=== PATIENT | male | born 1975 | race Caucasian/White ===

== ENCOUNTER 2023-09-04 01:53 | Emergency (ER) | payer MEDICAID ==
[~2023-09-04] VITALS: Ht 185.4 cm; Wt 100.0 kg
[2023-09-04 02:36] VITALS: BP 135/78; PULSE 82; RESP 16; TEMP 98.3; O2SAT 98
== END 2023-09-04 02:38 | disposition home or self-care (01) ==
LOC: ER 01:53
DX: S01.81XA Laceration without foreign body of other part of head, initial encounter (principal); G89.29 Other chronic pain; M54.9 Dorsalgia, unspecified; X58.XXXA Exposure to other specified factors, initial encounter; Y93.89 Activity, other specified; Y92.89 Other specified places as the place of occurrence of the external cause; Y99.8 Other external cause status
CPT/HCPCS: 12011; 99283

== ENCOUNTER 2024-01-13 11:48 | Inpatient (IN) | payer MEDICAID ==
[2024-01-12 15:56] LABS: ABG BASE EXCESS 0.6 mmol/L (-2.0-2.0); ABG HCO3 24.3 mmol/L (22.0-26.0); ABG OXYGEN SATURATION 95.7 % (94-97); ABG PCO2 (T) 36.4 mmHg (35.0-48.0); ABG PH (T) 7.443 (7.340-7.440); ABG PO2 (T) 81.9 mmHg (75.0-100.0); ALLEN'S TEST POSITIVE; FCOHb 5.7 % (0.0-3.9); FMetHb 0.2 % (0.0-1.5); FO2Hb 90.1 % (94-97); MODE ROOM AIR; TOTAL HEMOGLOBIN 15.3 G/dl (14.0-17.9)
[2024-01-12 16:34] LABS: EOSINOPHILS # (AUTO) 0.1 X10'3 (0-0.9); EOSINOPHILS % (AUTO) 1.4 % (0-6); PRE OP WHITE BLOOD COUNT 8.8 10'3 (4.8-10.8)
[2024-01-12 16:35] LABS: BASOPHILS # (AUTO) 0.1 X10'3 (0-0.2); BASOPHILS % (AUTO) 0.6 % (0-1); LYMPHOCYTES # (AUTO) 2.6 X10'3 (1.1-4.8); LYMPHOCYTES % (AUTO) 29.5 % (21-51); MEAN CORPUSCULAR HEMOGLOBIN 34.5 PG (27.0-31.0); MEAN CORPUSCULAR HGB CONC 34.4 g/dL (33.0-36.5); MEAN CORPUSCULAR VOLUME 100.4 FL (78-98); MEAN PLATELET VOLUME 9.9 FL (7.4-10.4); MONOCYTES # (AUTO) 0.5 X10'3 (0-0.9); MONOCYTES % (AUTO) 5.5 % (2-12); NEUTROPHILS # (AUTO) 5.6 X10'3 (1.8-7.7); PRE OP HEMATOCRIT 43.6 % (42.0-52.0); PRE OP PLATELET COUNT 214 X10'3 (140-440); RED BLOOD COUNT 4.34 X10'6 (4.70-6.10); RED CELL DISTRIBUTION WIDTH 13.6 % (11.5-14.5)
[2024-01-12 16:48] LABS: ALBUMIN 3.5 G/DL (3.4-5.0); BLOOD UREA NITROGEN 11 MG/DL (7-18); BUN/CREATININE RATIO 12.9 (10.0-20.0); CALCIUM 8.8 MG/DL (8.5-10.1); CHLORIDE 106 MMOL/L (99-107); CREATININE 0.85 MG/DL (0.60-1.10); PRE OP ALT 48 U/L (30-65); PRE OP ANION GAP 9 (8-16); PRE OP AST 18 U/L (10-37); PRE OP BILIRUB, TOTAL 0.4 MG/DL (0.0-1.0); PRE OP GLUCOSE 103 MG/DL (70-104); PRE OP POTASSIUM 3.9 MMOL/L (3.4-5.1); PRE OP SODIUM 144 MMOL/L (135-145); TOTAL CARBON DIOXIDE 28.6 MMOL/L (24-32); eGFR > 90 ML/MIN
[2024-01-12 16:49] LABS: ALKALINE PHOSPHATASE 87 IU/L (46-116)
[~2024-01-13] VITALS: Ht 185.4 cm; Wt 96.3 kg
[2024-01-13] VITALS (25 sets, daily range): BP systolic 99–146; BP diastolic 56–94; PULSE 68–85; RESP 12–23; TEMP 97.5; O2SAT 94–100
[2024-01-13] MEDS: cefazolin 2gm/D5W 100mL 100 ML IV ONE (05:30)
[~2024-01-13 11:48] MED LIST: ASPI81TA52 PO; CARB200C7 PO; CETI10TA14 PO; CHOL20003 PO; DIPH25CA83 PO; DISU250T15 PO; DULO30CA52 PO; IBUP-1986 PO; METO-384 PO; POTA-366 PO; PRAZ1CAP5 PO; THIA100T70 PO
[2024-01-13] MEDS: famotidine 20mg tablet PO ONE (14:14)
[2024-01-13] MEDS: ringers solution, lacted 1,000 ML IV SCH (14:15)
[2024-01-13] MEDS: metoprolol tartrate 12.5mg (1/2 tablet) PO ONE (14:15)
[2024-01-13] MEDS: DOCUMENT DATE & TIME OF BETA-BLOCKER PO ONE (14:15)
[2024-01-13 14:31] LABS: PRE OP PARTIAL THROMB. TIME 23 SECONDS (22-32); PROTHROMBIN TIME 10.8 SECONDS (9.0-12.0)
[2024-01-13] MEDS ORDERED: sevoflurane 250ml liquid IH ONE (15:15)
[2024-01-13] MEDS ORDERED: MIDAZolam 1 MG/ML 5ML VIAL ONE (15:20)
[2024-01-13] MEDS ORDERED: fentaNYL /PF 50mcg/ml 5ml ampule ONE (15:20)
[2024-01-13] MEDS ORDERED: rocuronium 10mg/ml inj IV ONE ×2 (15:21→16:23)
[2024-01-13] MEDS ORDERED: ondansetron/PF 4mg/2ml inj ONE (15:21)
[2024-01-13] MEDS ORDERED: propofol inj 20 ML IV ONE (15:21)
[2024-01-13] MEDS ORDERED: dexamethasone sod phosphate 4mg/ml inj. ONE (15:21)
[2024-01-13] MEDS ORDERED: acetaminophen 1,000mg/100ml IV 100 ML IV ONE (15:58)
[2024-01-13] MEDS ORDERED: labetalol 20mg/4ml (5mg/ml) syringe IV ONE (16:15)
[2024-01-13] MEDS ORDERED: fentaNYL/PF 50MCG/1 ML 2ML syringe ONE (16:23)
[2024-01-13] MEDS ORDERED: sugammadex 200mg/2ml injection IV ONE (16:24)
[2024-01-13] MEDS ORDERED: fentaNYL/PF 50MCG/1 ML 2ML syringe IV PRN ×2 (16:35)
[2024-01-13] MEDS ORDERED: morphine 2 MG/ML inj. syringe IV PRN ×2 (16:35→17:00)
[2024-01-13] MEDS ORDERED: hydrALAZINE 20mg/ml inj. IV PRN (16:35)
[2024-01-13] MEDS ORDERED: labetalol 20mg/4ml (5mg/ml) syringe IV PRN (16:35)
[2024-01-13] MEDS ORDERED: ondansetron/PF 4mg/2ml inj IV PRN ×2 (16:35→17:00)
[2024-01-13] MEDS: BUPIVAcaine/PF 2.5mg/ml (0.25%) 10ml vial ONE (16:50)
[2024-01-13] MEDS: LIDOcaine 1% 30ml preserv. free vial ONE (16:50)
[2024-01-13] MEDS ORDERED: potassium Cl 40MEQ/1/2NS 520ml 520 ML IV PRN (17:00)
[2024-01-13] MEDS ORDERED: magnesium 4gm in 100ml NS 100 ML IV PRN (17:00)
[2024-01-13] MEDS ORDERED: potassium CL 10mEq/100ml bag 100 ML IV PRN (17:00)
[2024-01-13] MEDS ORDERED: potassium Cl 20mEq/100mL bag 100 ML IV PRN (17:00)
[2024-01-13] MEDS ORDERED: magnesium 2GM in 50ml NS 50 ML IV PRN (17:00)
[2024-01-13] MEDS ORDERED: ibuprofen tablet 400 MG TABLET PO PRN (17:00)
[2024-01-13] MEDS ORDERED: metoclopramide 5 mg/ml inj IV PRN (17:00)
[2024-01-13] MEDS ORDERED: potassium Cl 40MEQ/270ML bag 250 ML IV PRN (17:00)
[2024-01-13] MEDS ORDERED: morphine 4 MG/ML inj SYRINge IV PRN (17:00)
[2024-01-13] MEDS ORDERED: albuterol 2.5 MG/3 ML nebule NEB PRN (17:00)
[2024-01-13 17:36] LABS: ABG BASE EXCESS -4.1 mmol/L (-2.0-2.0); ABG HCO3 20.6 mmol/L (22.0-26.0); ABG OXYGEN SATURATION 98.3 % (94-97); ABG PCO2 (T) 36.6 mmHg (35.0-48.0); ABG PH (T) 7.368 (7.340-7.440); ABG PO2 (T) 117.5 mmHg (75.0-100.0); FCOHb 1.6 % (0.0-3.9); FHHb 1.7 % (0.0-5.0); FLOW 10 L/min; FMetHb 0.1 % (0.0-1.5); FO2Hb 96.6 % (94-97); MODE MASK - SIMPLE; TOTAL HEMOGLOBIN 14.2 G/dl (14.0-17.9)
[2024-01-13] MEDS: morphine 4 MG/ML inj SYRINge IV PRN (17:43)
[2024-01-13] MEDS: gabapentin 300mg capsule PO SCH (21:16)
[2024-01-13] MEDS: docusate sod 100mg capsule PO SCH (21:16)
[2024-01-13] MEDS: ketorolac trometh. 30mg/ml inj. IV ONE (21:17)
[2024-01-13] MEDS: cetirizine 10mg tablet PO SCH (21:18)
[2024-01-13] MEDS: diphenhydrAMINE 25mg capsule PO SCH (21:18)
[2024-01-13] MEDS: prazosin 1mg capsule PO SCH (21:19)
[2024-01-13] MEDS: duloxetine 30mg CAPSULE.DR PO SCH (21:29)
[2024-01-13] MEDS: carBAMazepine Ext. Release 200 MG TAB.ER.12H PO SCH (22:13)
[2024-01-14] VITALS (14 sets, daily range): BP systolic 105–156; BP diastolic 60–94; PULSE 66–90; RESP 11–22; TEMP 98.4; O2SAT 95–97
[2024-01-14] MEDS: ringers solution, lacted 1,000 ML IV SCH (00:33)
[2024-01-14] MEDS ORDERED: ketorolac trometh. 30mg/ml inj. IM SCH (02:00)
[2024-01-14] MEDS: ceFAZolin inj. 1,000 MG in dextrose 5%-water 50ml 50 ML IV SCH (02:00)
[2024-01-14] MEDS: ketorolac trometh. 30mg/ml inj. IV SCH (02:01)
[2024-01-14] MEDS: HYDROcodone/acetaminophen 10/325mg tab PO PRN ×2 (04:34→09:42)
[2024-01-14 04:42] LABS: BASOPHILS % (AUTO) 0.1 % (0-1); EOSINOPHILS % (AUTO) 0 % (0-6); HEMATOCRIT 36.4 % (42.0-52.0); HEMOGLOBIN 12.5 g/dl (14.0-17.9); LYMPHOCYTES # (AUTO) 1.4 X10'3 (1.1-4.8); LYMPHOCYTES % (AUTO) 12.1 % (21-51); MEAN CORPUSCULAR HEMOGLOBIN 34.6 PG (27.0-31.0); MEAN CORPUSCULAR HGB CONC 34.4 g/dL (33.0-36.5); MEAN CORPUSCULAR VOLUME 100.6 FL (78-98); MEAN PLATELET VOLUME 9.8 FL (7.4-10.4); MONOCYTES # (AUTO) 0.9 X10'3 (0-0.9); MONOCYTES % (AUTO) 7.7 % (2-12); NEUTROPHILS # (AUTO) 9.1 X10'3 (1.8-7.7); NEUTROPHILS % (AUTO) 80.1 % (42-75); PLATELET COUNT 168 X10'3 (140-440); RED BLOOD COUNT 3.62 X10'6 (4.70-6.10); RED CELL DISTRIBUTION WIDTH 13.3 % (11.5-14.5); WHITE BLOOD COUNT 11.4 X10'3 (4.5-11.0)
[2024-01-14 04:51] LABS: ALANINE AMINOTRANSFERASE 122 U/L (12-78); ALKALINE PHOSPHATASE 98 IU/L (46-116); ANION GAP 10 (8-16); ASPARTATE AMINO TRANSFERASE 114 U/L (10-37); BILIRUBIN,TOTAL 0.4 MG/DL (0.1-1.0); BLOOD UREA NITROGEN 16 MG/DL (7-18); BUN/CREATININE RATIO 17.4 (10.0-20.0); CALCIUM 8.1 MG/DL (8.5-10.1); CHLORIDE 106 MMOL/L (99-107); CREATININE 0.92 MG/DL (0.60-1.10); GLUCOSE 119 MG/DL (70-104); POTASSIUM 3.5 MMOL/L (3.5-5.1); SODIUM 142 MMOL/L (135-145); TOTAL PROTEIN 5.9 G/DL (6.4-8.2); eCRCL 112 ML/MIN; eGFR 88 ML/MIN
[2024-01-14] MEDS: thiamine 100mg tablet PO SCH (08:20)
[2024-01-14] MEDS: metoprolol succinate 25mg (24-HOUR) SR. Tablet PO SCH (08:20)
[2024-01-14] MEDS: aspirin 81mg, enteric-coated 1 TAB TABLET.DR PO SCH (08:21)
[2024-01-14] MEDS: cholecalciferol (vitamin D3) 1,000 unit (25mcg) tablet PO SCH (08:21)
[2024-01-14] MEDS: potassium Cl 20 mEq SR tablet PO PRN (09:41)
[2024-01-14] MEDS ORDERED: HYDR-3972 PO (12:04)
== END 2024-01-14 14:31 | disposition home or self-care (01) | DRG 121 ==
LOC: PAS IN 11:48 → CICU 2S 19:30 → PCU 3S 01-14 12:00
PROVIDERS: ADMIT Thoracic Surgery (Cardiothoracic Vascular Surgery); ATTEND Thoracic Surgery (Cardiothoracic Vascular Surgery)
PROC: 07B74ZX Excision of Thorax Lymphatic, Percutaneous Endoscopic Approach, Diagnostic (ICD-10-PCS; 2024-01-13)
PROC: 0BBF4ZZ Excision of Right Lower Lung Lobe, Percutaneous Endoscopic Approach (ICD-10-PCS; principal; 2024-01-13 15:15)
DX: R91.1 Solitary pulmonary nodule (principal); R59.9 Enlarged lymph nodes, unspecified; R91.8 Other nonspecific abnormal finding of lung field; Z72.0 Tobacco use
CPT/HCPCS: 36415; 36600; 71045; 71046; 71250; 80048; 80053; 82803; 82948; 85018; 85025; 85610; 85730; 86885; 86900; 86901; 87081; 94010; 94760; A4215; A4615; A4618; A6250; A6258; A6449; A7000; A7048; C1758; G0378; J0131; J0360; J0690; J1100; J1885; J2250; J2270; J2405; J2704; J3010; J3490; J7060; J7120; Q0163

== ENCOUNTER → 2024-01-20 | Outpatient (CLI) | payer MEDICAID ==
[~2024-01-20] MED LIST changes: +HYDR-3972 PO
== END | disposition home or self-care (01) ==
LOC: RAD 15:54
PROVIDERS: ATTEND Thoracic Surgery (Cardiothoracic Vascular Surgery)
DX: R91.8 Other nonspecific abnormal finding of lung field (principal); R07.89 Other chest pain
CPT/HCPCS: 71046

== ENCOUNTER 2024-02-03 09:27 | Outpatient (CLI) | payer MEDICAID | END 2024-02-03 23:59 | disposition home or self-care (01) | LOC: RAD 09:27 | PROVIDERS: ATTEND Nurse Practitioner Family | DX: R56.9 Unspecified convulsions (principal); Z72.820 Sleep deprivation | CPT/HCPCS: 95816 ==

== ENCOUNTER 2024-07-30 13:20 | Inpatient (IN) | payer MEDICAID ==
[~2024-07-30] VITALS: Ht 185.4 cm; Wt 97.3 kg
[2024-07-30] VITALS (14 sets, daily range): BP systolic 97–119; BP diastolic 63–80; PULSE 75–97; RESP 12–16; TEMP 98.5; O2SAT 93–98
[2024-07-30] MEDS: morphine 4 MG/ML inj SYRINge IV ONE ×3 (14:09→16:20)
[2024-07-30] MEDS: ondansetron/PF 4mg/2ml inj IV ONE (14:10)
[2024-07-30] MEDS: normal saline 1000ml 1,000 ML IV ONE ×3 (14:10→15:58)
[2024-07-30 14:37] LABS: BASOPHILS % (AUTO) 0.3 % (0-1); EOSINOPHILS % (AUTO) 0.4 % (0-6); HEMATOCRIT 54.6 % (42.0-52.0); LYMPHOCYTES % (AUTO) 9.3 % (21-51); MEAN CORPUSCULAR HGB CONC 33.9 g/dL (33.0-36.5); MEAN CORPUSCULAR VOLUME 109.1 FL (78-98); MONOCYTES # (AUTO) 0.5 X10'3 (0-0.9); MONOCYTES % (AUTO) 4.2 % (2-12); NEUTROPHILS # (AUTO) 9.6 X10'3 (1.8-7.7); NEUTROPHILS % (AUTO) 85.8 % (42-75); PLATELET COUNT 148 X10'3 (140-440); RED BLOOD COUNT 5.01 X10'6 (4.70-6.10); RED CELL DISTRIBUTION WIDTH 14.5 % (11.5-14.5); WHITE BLOOD COUNT 11.2 X10'3 (4.5-11.0)
[2024-07-30 14:43] LABS: ALBUMIN 3.1 G/DL (3.4-5.0); ANION GAP 16 (8-16); BLOOD UREA NITROGEN 29 MG/DL (7-18); BUN/CREATININE RATIO 18.4 (10.0-20.0); CALCIUM 8.3 MG/DL (8.5-10.1); CHLORIDE 94 MMOL/L (99-107); CREATININE 1.58 MG/DL (0.60-1.10); ETHANOL < 10 MG/DL (<10); GLUCOSE 104 MG/DL (70-104); MAGNESIUM 1.3 MG/DL (1.5-2.4); SODIUM 128 MMOL/L (135-145); TOTAL CARBON DIOXIDE 18.3 MMOL/L (24-32); eCRCL 65 ML/MIN; eGFR 47 ML/MIN
[2024-07-30 14:44] LABS: HEMOGLOBIN 18.5 g/dl (14.0-17.9)
[2024-07-30 14:45] LABS: POTASSIUM 4.7 MMOL/L (3.5-5.1)
[2024-07-30] MEDS ORDERED: iohexol 300mg/ml 100ml inj. ONE (14:53)
[2024-07-30] MEDS: piperacillin/tazo 4.5gm/100ml 100 ML IV ONE (15:10)
[2024-07-30 15:16] LABS: ALANINE AMINOTRANSFERASE 255 U/L (12-78); ALBUMIN 2.6 G/DL (3.4-5.0); ALKALINE PHOSPHATASE 246 IU/L (46-116); BILIRUBIN,TOTAL 4.9 MG/DL (0.1-1.0)
[2024-07-30 15:17] LABS: ALBUMIN/GLOBULIN RATIO 0.9 (1.1-1.5); ASPARTATE AMINO TRANSFERASE 319 U/L (10-37); BILIRUBIN,DIRECT 3.8 MG/DL (0-0.3); TOTAL PROTEIN 5.5 G/DL (6.4-8.2)
[2024-07-30] MEDS ORDERED: magnesium hydroxide 30ml (MOM) UD suspension PO PRN (16:50)
[2024-07-30] MEDS ORDERED: potassium Cl 20 mEq SR tablet PO PRN ×2 (16:50)
[2024-07-30] MEDS ORDERED: albuterol 2.5 MG/3 ML nebule NEB PRN (16:50)
[2024-07-30] MEDS ORDERED: mag hydrox/Alum hydrox/simeth 30ml oral suspension PO PRN (16:50)
[2024-07-30] MEDS ORDERED: acetaminophen 325mg tablet PO PRN (16:50)
[2024-07-30] MEDS ORDERED: potassium Cl 40MEQ/1/2NS 520ml 520 ML IV PRN (16:50)
[2024-07-30] MEDS ORDERED: pantoprazole 40mg IV 80 MG in normal saline 100ml IV soln 100 ML IV ONE (17:05)
[2024-07-30] MEDS: pantoprazole 40 MG vial IV ONE (17:10)
[2024-07-30] MEDS ORDERED: fentaNYL /PF 50mcg/ml 5ml ampule ONE (17:12)
[2024-07-30] MEDS ORDERED: midazolam 1 mg/ML 2ml injection ONE (17:12)
[2024-07-30] MEDS ORDERED: propofol inj 20 ML IV ONE (17:12)
[2024-07-30] MEDS ORDERED: meperidine/PF 25mg/ml syringe IV PRN ×3 (17:30)
[2024-07-30] MEDS ORDERED: morphine 2 MG/ML inj. syringe IV PRN (17:30)
[2024-07-30] MEDS ORDERED: ondansetron/PF 4mg/2ml inj IV PRN (17:30)
[2024-07-30] MEDS ORDERED: ringers solution, lacted 1,000 ML IV SCH (17:30)
[2024-07-30] MEDS ORDERED: morphine 4 MG/ML inj SYRINge IV PRN (17:30)
[2024-07-30] MEDS ORDERED: proCHLORperazine 10 MG/2 ml inj IV PRN (17:30)
[2024-07-30] MEDS ORDERED: sevoflurane 250ml liquid IH ONE (17:36)
[2024-07-30] MEDS ORDERED: ceFOXitin 1000 MG inj ONE ×2 (18:08)
[2024-07-30] MEDS ORDERED: rocuronium 10mg/ml inj IV ONE (18:08)
[2024-07-30] MEDS ORDERED: albumin (Human) 5% 250ml 250 ML IV ONE ×2 (18:13)
[2024-07-30] MEDS: BUPIVACAINE liposomal/PF 13.3 MG/ML vial IM ONE (19:00)
[2024-07-30] MEDS: BUPIVAcaine 2.5mg/ml inj 50ml vial (contains preservative) ONE (19:00)
[2024-07-30] MEDS ORDERED: acetaminophen 1,000mg/100ml IV 100 ML IV ONE (19:15)
[2024-07-30] MEDS ORDERED: sugammadex 200mg/2ml injection IV ONE (19:38)
[2024-07-30] MEDS ORDERED: pantoprazole 40MG/NS 100ML BAG 100 ML IV SCH (20:00)
[2024-07-30] MEDS: docusate sod 100mg capsule PO SCH (20:00)
[2024-07-30] MEDS: K and/or MAG REPLACEMENT MC SCH (20:00)
[2024-07-30] MEDS ORDERED: LYR25C PO (21:23)
[2024-07-30] MEDS ORDERED: ARIP5TAB53 PO (21:25)
[2024-07-30] MEDS ORDERED: DULO60CA65 PO (21:28)
[2024-07-30] MEDS ORDERED: ALBU8HFA INH (21:32)
[2024-07-30] MEDS ORDERED: PRAZ2CAP2 PO (21:32)
[2024-07-31] VITALS (18 sets, daily range): BP systolic 96–134; BP diastolic 68–89; PULSE 95–120; RESP 16–24; TEMP 97–101.1; O2SAT 91–95
[2024-07-31] MEDS: enoxaparin 40mg/0.4ml syringe SQ SCH (00:34)
[2024-07-31] MEDS: normal saline 1000ml 1,000 ML IV SCH (00:35)
[2024-07-31] MEDS: pantoprazole 40 MG vial IV SCH (00:35)
[2024-07-31] MEDS: piperacillin/tazo 4.5gm/100ml 100 ML IV SCH (00:35)
[2024-07-31] MEDS: HYDROmorphone inj. 0.5 MG/0.5 ML DISP.SYRIN IV PRN (05:33)
[2024-07-31 06:27] LABS: BASOPHILS % (AUTO) 0.3 % (0-1); EOSINOPHILS # (AUTO) 0.1 X10'3 (0-0.9); EOSINOPHILS % (AUTO) 2.4 % (0-6); HEMATOCRIT 45.4 % (42.0-52.0); HEMOGLOBIN 14.8 g/dl (14.0-17.9); LYMPHOCYTES # (AUTO) 0.4 X10'3 (1.1-4.8); LYMPHOCYTES % (AUTO) 7.4 % (21-51); MEAN CORPUSCULAR HEMOGLOBIN 36.7 PG (27.0-31.0); MEAN CORPUSCULAR HGB CONC 32.5 g/dL (33.0-36.5); MEAN PLATELET VOLUME 10.6 FL (7.4-10.4); MONOCYTES # (AUTO) 0.2 X10'3 (0-0.9); MONOCYTES % (AUTO) 3.7 % (2-12); NEUTROPHILS # (AUTO) 4.8 X10'3 (1.8-7.7); NEUTROPHILS % (AUTO) 86.2 % (42-75); PLATELET COUNT 97 X10'3 (140-440); RED BLOOD COUNT 4.02 X10'6 (4.70-6.10); RED CELL DISTRIBUTION WIDTH 14.7 % (11.5-14.5); WHITE BLOOD COUNT 5.5 X10'3 (4.5-11.0)
[2024-07-31 07:31] LABS: ALANINE AMINOTRANSFERASE 207 U/L (12-78); ALBUMIN 2.3 G/DL (3.4-5.0); ALKALINE PHOSPHATASE 145 IU/L (46-116); ANION GAP 9 (8-16); BILIRUBIN,TOTAL 4.2 MG/DL (0.1-1.0); BLOOD UREA NITROGEN 22 MG/DL (7-18); BUN/CREATININE RATIO 16.8 (10.0-20.0); CALCIUM 6.6 MG/DL (8.5-10.1); CHLORIDE 102 MMOL/L (99-107); CREATININE 1.31 MG/DL (0.60-1.10); GLUCOSE 101 MG/DL (70-104); SODIUM 133 MMOL/L (135-145); TOTAL CARBON DIOXIDE 22.4 MMOL/L (24-32); eCRCL 79 ML/MIN; eGFR 59 ML/MIN
[2024-07-31 07:33] LABS: ALBUMIN/GLOBULIN RATIO 0.8 (1.1-1.5); ASPARTATE AMINO TRANSFERASE 324 U/L (10-37); POTASSIUM 4.9 MMOL/L (3.5-5.1); TOTAL PROTEIN 5.2 G/DL (6.4-8.2)
[2024-07-31 09:15] LABS: PLATELET ESTIMATE DECREASED; TOTAL CELLS COUNTED 100
[2024-07-31 09:19] LABS: ELLIPTOCYTES 1+; POIKILOCYTOSIS 2+; STOMATOCYTES 1+
[2024-07-31 09:20] LABS: TARGET CELLS 1+
[2024-07-31] MEDS: metoprolol succinate 25mg (24-HOUR) SR. Tablet PO ONE (12:16)
[2024-07-31] MEDS: ipratropium/albuterol 3ml nebule NEB PRN (12:16)
[2024-07-31] MEDS: magnesium sulf-water 4G/100mL 100 ML IV PRN (12:40)
[2024-07-31] MEDS ORDERED: methylPREDNISolone sod succ 125mg/2ml vial IV ONE (14:00)
[2024-07-31 14:17] LABS: ABG BASE EXCESS -5.9 mmol/L (-2.0-3.0); ABG HCO3 18.1 mmol/L (21.0-28.0); ABG OXYGEN SATURATION 87.7 % (94.0-98.0); ABG PCO2 (T) 34.2 mmHg (35.0-48.0); ABG PH (T) 7.349 (7.350-7.450); ABG PO2 (T) 60.2 mmHg (83.0-108.0); ALLEN'S TEST POSITIVE; FCOHb 1.3 % (0.5-1.5); FHHb 12.1 % (0.0-5.0); FLOW 6 L/min; FMetHb 0.3 % (0.0-1.5); FO2Hb 86.3 % (94.0-98.0); MODE NASAL CANNULA; PATIENT TEMPERATURE 38.6; TOTAL HEMOGLOBIN 15.1 G/dl (13.5-17.5)
[2024-07-31] MEDS: methylPREDNISolone sod succ 125mg/2ml vial IV ONE (14:18)
[2024-07-31] MEDS: ipratropium/albuterol 3ml nebule NEB SCH (15:50)
[2024-07-31] MEDS: normal saline 1000ml 1,000 ML IV ONE (16:48)
[2024-07-31] MEDS: calcium chloride 100 MG/1 ML inj IV ONE (17:52)
[2024-07-31] MEDS: carBAMazepine Ext. Release 200 MG TAB.ER.12H PO SCH (21:15)
[2024-07-31] MEDS: cetirizine 10mg tablet PO SCH (21:16)
[2024-07-31] MEDS: diphenhydrAMINE 25mg capsule PO SCH (21:16)
[2024-07-31] MEDS: pregabalin 25mg capsule PO SCH (21:16)
[2024-07-31] MEDS: prazosin 1mg capsule PO SCH (21:16)
[2024-07-31] MEDS: duloxetine 30mg CAPSULE.DR PO SCH (21:16)
[2024-07-31] MEDS: magnesium sulf-water 2g/50mL 50 ML IV PRN (21:28)
[2024-08-01] VITALS (45 sets, daily range): BP systolic 110–141; BP diastolic 70–96; PULSE 65–95; RESP 12–20; TEMP 96.1–97.8; O2SAT 77–100
[2024-08-01] MEDS: methylPREDNISolone sod succ 125mg/2ml vial IV SCH (00:39)
[2024-08-01 06:49] LABS: BASOPHILS % (AUTO) 0.1 % (0-1); EOSINOPHILS % (AUTO) 0.1 % (0-6); HEMOGLOBIN 11.8 g/dl (14.0-17.9); LYMPHOCYTES # (AUTO) 0.7 X10'3 (1.1-4.8); MEAN CORPUSCULAR HEMOGLOBIN 36.1 PG (27.0-31.0); MEAN CORPUSCULAR HGB CONC 32.7 g/dL (33.0-36.5); MEAN CORPUSCULAR VOLUME 110.4 FL (78-98); MEAN PLATELET VOLUME 10.5 FL (7.4-10.4); MONOCYTES # (AUTO) 0.6 X10'3 (0-0.9); MONOCYTES % (AUTO) 4.3 % (2-12); NEUTROPHILS # (AUTO) 12.3 X10'3 (1.8-7.7); NEUTROPHILS % (AUTO) 90.5 % (42-75); PLATELET COUNT 90 X10'3 (140-440); RED BLOOD COUNT 3.26 X10'6 (4.70-6.10); RED CELL DISTRIBUTION WIDTH 14.7 % (11.5-14.5); WHITE BLOOD COUNT 13.6 X10'3 (4.5-11.0)
[2024-08-01] MEDS ORDERED: rocuronium 10mg/ml inj IV ONE ×2 (07:08)
[2024-08-01 07:21] LABS: ALANINE AMINOTRANSFERASE 169 U/L (12-78); ALBUMIN 1.8 G/DL (3.4-5.0); ALBUMIN/GLOBULIN RATIO 0.6 (1.1-1.5); ALKALINE PHOSPHATASE 107 IU/L (46-116); ANION GAP 6 (8-16); ASPARTATE AMINO TRANSFERASE 246 U/L (10-37); BILIRUBIN,TOTAL 2.4 MG/DL (0.1-1.0); BLOOD UREA NITROGEN 22 MG/DL (7-18); BUN/CREATININE RATIO 22.2 (10.0-20.0); CALCIUM 7.1 MG/DL (8.5-10.1); CHLORIDE 104 MMOL/L (99-107); CREATININE 0.99 MG/DL (0.60-1.10); GLUCOSE 157 MG/DL (70-104); MAGNESIUM 2.7 MG/DL (1.5-2.4); POTASSIUM 3.8 MMOL/L (3.5-5.1); SODIUM 134 MMOL/L (135-145); TOTAL CARBON DIOXIDE 23.6 MMOL/L (24-32); TOTAL PROTEIN 4.9 G/DL (6.4-8.2); eCRCL 104 ML/MIN; eGFR 81 ML/MIN
[2024-08-01] MEDS ORDERED: sevoflurane 250ml liquid IH ONE (07:30)
[2024-08-01] MEDS: thiamine 100mg tablet PO SCH (08:00)
[2024-08-01] MEDS: metoprolol succinate 25mg (24-HOUR) SR. Tablet PO SCH (08:00)
[2024-08-01] MEDS: aripiprazole 5mg tablet PO SCH (08:00)
[2024-08-01] MEDS ORDERED: sugammadex 200mg/2ml injection IV ONE ×2 (08:10→08:11)
[2024-08-01] MEDS ORDERED: HYDROmorphone 1 mg/ml syringe ONE (08:18)
[2024-08-01] MEDS ORDERED: acetaminophen 1,000mg/100ml IV 100 ML IV ONE (08:29)
[2024-08-01 08:55] LABS: PLATELET ESTIMATE DECREASED; TOTAL CELLS COUNTED 100
[2024-08-01 08:56] LABS: STOMATOCYTES 1+; TARGET CELLS FEW
[2024-08-01] MEDS ORDERED: ondansetron/PF 4mg/2ml inj IV PRN (10:25)
[2024-08-01] MEDS ORDERED: fentaNYL/PF 50MCG/1 ML 2ML syringe IV PRN (10:25)
[2024-08-01] MEDS ORDERED: HYDROmorphone/PF 0.2 MG/ML SYRINGE IV PRN (10:25)
[2024-08-01] MEDS: ringers solution, lacted 1,000 ML IV SCH (11:52)
[2024-08-02] VITALS (25 sets, daily range): BP systolic 132–157; BP diastolic 77–96; PULSE 71–117; RESP 12–22; TEMP 97.2–98.7; O2SAT 89–98
[2024-08-02 08:16] LABS: BASOPHILS % (AUTO) 0 % (0-1); EOSINOPHILS % (AUTO) 0.1 % (0-6); HEMATOCRIT 33.5 % (42.0-52.0); HEMOGLOBIN 10.9 g/dl (14.0-17.9); LYMPHOCYTES # (AUTO) 0.6 X10'3 (1.1-4.8); LYMPHOCYTES % (AUTO) 4.8 % (21-51); MEAN CORPUSCULAR HEMOGLOBIN 35.9 PG (27.0-31.0); MEAN CORPUSCULAR HGB CONC 32.6 g/dL (33.0-36.5); MEAN CORPUSCULAR VOLUME 110.2 FL (78-98); MONOCYTES % (AUTO) 7.9 % (2-12); NEUTROPHILS # (AUTO) 10.8 X10'3 (1.8-7.7); NEUTROPHILS % (AUTO) 87.2 % (42-75); PLATELET COUNT 78 X10'3 (140-440); RED BLOOD COUNT 3.04 X10'6 (4.70-6.10); RED CELL DISTRIBUTION WIDTH 14.3 % (11.5-14.5); WHITE BLOOD COUNT 12.4 X10'3 (4.5-11.0)
[2024-08-02 08:56] LABS: ALANINE AMINOTRANSFERASE 148 U/L (12-78); ALBUMIN 1.7 G/DL (3.4-5.0); ALBUMIN/GLOBULIN RATIO 0.5 (1.1-1.5); ALKALINE PHOSPHATASE 117 IU/L (46-116); ANION GAP 7 (8-16); ASPARTATE AMINO TRANSFERASE 164 U/L (10-37); BILIRUBIN,TOTAL 2.4 MG/DL (0.1-1.0); BLOOD UREA NITROGEN 19 MG/DL (7-18); CALCIUM 7.5 MG/DL (8.5-10.1); CHLORIDE 105 MMOL/L (99-107); CREATININE 0.73 MG/DL (0.60-1.10); GLUCOSE 110 MG/DL (70-104); MAGNESIUM 2.4 MG/DL (1.5-2.4); SODIUM 138 MMOL/L (135-145); TOTAL CARBON DIOXIDE 26.3 MMOL/L (24-32); TOTAL PROTEIN 5.1 G/DL (6.4-8.2); eCRCL 141 ML/MIN; eGFR > 90 ML/MIN
[2024-08-02 10:08] LABS: PLATELET ESTIMATE DECREASED; TOTAL CELLS COUNTED 100
[2024-08-02 10:09] LABS: STOMATOCYTES 3+; TARGET CELLS 1+
[2024-08-02] MEDS: furosemide 20 MG/2 ML vial IV ONE (22:01)
[2024-08-02] MEDS: methylPREDNISolone sod succ/PF 40mg inj. IV SCH (23:38)
[2024-08-03] VITALS (16 sets, daily range): BP systolic 123–140; BP diastolic 69–89; PULSE 66–124; RESP 16–22; TEMP 96.9–97.7; O2SAT 91–98
[2024-08-03 05:47] LABS: EOSINOPHILS % (AUTO) 0.4 % (0-6); HEMATOCRIT 36.1 % (42.0-52.0); HEMOGLOBIN 11.7 g/dl (14.0-17.9); LYMPHOCYTES # (AUTO) 0.6 X10'3 (1.1-4.8); MEAN CORPUSCULAR HGB CONC 32.3 g/dL (33.0-36.5); RED CELL DISTRIBUTION WIDTH 14.5 % (11.5-14.5); WHITE BLOOD COUNT 11.9 X10'3 (4.5-11.0)
[2024-08-03 05:49] LABS: BASOPHILS % (AUTO) 0.2 % (0-1); LYMPHOCYTES % (AUTO) 4.9 % (21-51); MEAN CORPUSCULAR VOLUME 111.6 FL (78-98); MEAN PLATELET VOLUME 10.3 FL (7.4-10.4); MONOCYTES # (AUTO) 0.8 X10'3 (0-0.9); MONOCYTES % (AUTO) 6.4 % (2-12); NEUTROPHILS # (AUTO) 10.5 X10'3 (1.8-7.7); NEUTROPHILS % (AUTO) 88.1 % (42-75); PLATELET COUNT 80 X10'3 (140-440); RED BLOOD COUNT 3.24 X10'6 (4.70-6.10)
[2024-08-03 06:19] LABS: ALANINE AMINOTRANSFERASE 136 U/L (12-78); ALBUMIN 1.8 G/DL (3.4-5.0); ALBUMIN/GLOBULIN RATIO 0.5 (1.1-1.5); ALKALINE PHOSPHATASE 217 IU/L (46-116); ANION GAP 7 (8-16); ASPARTATE AMINO TRANSFERASE 125 U/L (10-37); BILIRUBIN,TOTAL 2.8 MG/DL (0.1-1.0); BLOOD UREA NITROGEN 21 MG/DL (7-18); BUN/CREATININE RATIO 27.3 (10.0-20.0); CHLORIDE 103 MMOL/L (99-107); CREATININE 0.77 MG/DL (0.60-1.10); GLUCOSE 107 MG/DL (70-104); POTASSIUM 3.4 MMOL/L (3.5-5.1); PRO BRAIN NATRIURETIC PEPTIDE 829 PG/ML (0-125); SODIUM 139 MMOL/L (135-145); TOTAL CARBON DIOXIDE 29.3 MMOL/L (24-32); TOTAL PROTEIN 5.6 G/DL (6.4-8.2); eCRCL 134 ML/MIN; eGFR > 90 ML/MIN
[2024-08-03] MEDS: PERFLUTREN PROTEIN-A MICROSPHR (Optison) 0.22 MG/ML 3ML VIAL IV ONE (08:35)
[2024-08-03 09:51] LABS: NUCLEATED RED BLOOD CELLS 1 /100WBC (0-0); TOTAL CELLS COUNTED 100
[2024-08-03 09:52] LABS: PLATELET ESTIMATE DECREASED
[2024-08-03 09:53] LABS: POLYCHROMASIA FEW; STOMATOCYTES 3+; TARGET CELLS FEW
[2024-08-03] MEDS ORDERED: HYDROcodone/acetaminophen 5mg/325mg tablet PO PRN (12:45)
[2024-08-03] MEDS ORDERED: potassium Cl 40MEQ/1/2NS 520ml 520 ML IV PRN (12:45)
[2024-08-03] MEDS ORDERED: potassium Cl 20 mEq SR tablet PO PRN (12:45)
[2024-08-03] MEDS ORDERED: ziprasidone IM 20mg inj **IM only IM PRN (12:55)
[2024-08-03] MEDS: LORazepam 1 MG tablet PO PRN (13:08)
[2024-08-03] MEDS: HYDROcodone/acetaminophen 10/325mg tab PO PRN (13:09)
[2024-08-03] MEDS: potassium Cl 20 mEq SR tablet PO PRN (13:09)
[2024-08-03] MEDS: K and/or MAG REPLACEMENT MC SCH (20:00)
[2024-08-04] VITALS (24 sets, daily range): BP systolic 104–139; BP diastolic 70–84; PULSE 63–92; RESP 15–24; TEMP 97.6–98.7; O2SAT 85–96
[2024-08-04 08:01] LABS: BASOPHILS % (AUTO) 0.2 % (0-1); EOSINOPHILS # (AUTO) 0.1 X10'3 (0-0.9)
[2024-08-04 08:04] LABS: EOSINOPHILS % (AUTO) 0.5 % (0-6); HEMOGLOBIN 10.4 g/dl (14.0-17.9); LYMPHOCYTES # (AUTO) 1.1 X10'3 (1.1-4.8); LYMPHOCYTES % (AUTO) 7.7 % (21-51); MEAN CORPUSCULAR HEMOGLOBIN 36.3 PG (27.0-31.0); MEAN CORPUSCULAR HGB CONC 32.7 g/dL (33.0-36.5); MEAN PLATELET VOLUME 10.6 FL (7.4-10.4); MONOCYTES # (AUTO) 0.6 X10'3 (0-0.9); MONOCYTES % (AUTO) 4.4 % (2-12); NEUTROPHILS # (AUTO) 12.6 X10'3 (1.8-7.7); NEUTROPHILS % (AUTO) 87.2 % (42-75); PLATELET COUNT 98 X10'3 (140-440); RED BLOOD COUNT 2.88 X10'6 (4.70-6.10); RED CELL DISTRIBUTION WIDTH 14.5 % (11.5-14.5); WHITE BLOOD COUNT 14.4 X10'3 (4.5-11.0)
[2024-08-04 08:32] LABS: ALBUMIN 1.7 G/DL (3.4-5.0); ANION GAP 6 (8-16); BILIRUBIN,TOTAL 1.8 MG/DL (0.1-1.0); BLOOD UREA NITROGEN 20 MG/DL (7-18); BUN/CREATININE RATIO 27.4 (10.0-20.0); CALCIUM 7.8 MG/DL (8.5-10.1); CHLORIDE 100 MMOL/L (99-107); CREATININE 0.73 MG/DL (0.60-1.10); GLUCOSE 103 MG/DL (70-104); MAGNESIUM 1.8 MG/DL (1.5-2.4); POTASSIUM 3.3 MMOL/L (3.5-5.1); SODIUM 136 MMOL/L (135-145); TOTAL CARBON DIOXIDE 30.1 MMOL/L (24-32); TOTAL PROTEIN 5.3 G/DL (6.4-8.2); eCRCL 141 ML/MIN; eGFR > 90 ML/MIN
[2024-08-04 08:33] LABS: ALANINE AMINOTRANSFERASE 91 U/L (12-78); ALBUMIN/GLOBULIN RATIO 0.5 (1.1-1.5); ALKALINE PHOSPHATASE 284 IU/L (46-116); ASPARTATE AMINO TRANSFERASE 66 U/L (10-37)
[2024-08-04 09:26] LABS: PLATELET ESTIMATE DECREASED; TOTAL CELLS COUNTED 100
[2024-08-04 09:27] LABS: ELLIPTOCYTES FEW; STOMATOCYTES 3+; TARGET CELLS FEW
[2024-08-04] MEDS ORDERED: iohexol 300mg/ml 100ml inj. ONE (12:08)
[2024-08-04] MEDS: duloxetine 30mg CAPSULE.DR PO SCH (20:55)
[2024-08-04] MEDS: LORazepam 2 mg/ml vial IV PRN (23:45)
[2024-08-05] VITALS (19 sets, daily range): BP systolic 111–171; BP diastolic 68–76; PULSE 67–85; RESP 16–22; TEMP 96.8–98.2; O2SAT 92–98
[2024-08-05 10:11] LABS: EOSINOPHILS # (AUTO) 0.2 X10'3 (0-0.9); WHITE BLOOD COUNT 17.2 X10'3 (4.5-11.0)
[2024-08-05 10:13] LABS: BASOPHILS % (AUTO) 0.1 % (0-1); EOSINOPHILS % (AUTO) 0.9 % (0-6); HEMATOCRIT 34.1 % (42.0-52.0); HEMOGLOBIN 11.2 g/dl (14.0-17.9); LYMPHOCYTES # (AUTO) 2.1 X10'3 (1.1-4.8); LYMPHOCYTES % (AUTO) 12.4 % (21-51); MEAN CORPUSCULAR HEMOGLOBIN 36.6 PG (27.0-31.0); MEAN CORPUSCULAR HGB CONC 32.9 g/dL (33.0-36.5); MEAN CORPUSCULAR VOLUME 111.1 FL (78-98); MEAN PLATELET VOLUME 10.5 FL (7.4-10.4); MONOCYTES # (AUTO) 1.1 X10'3 (0-0.9); MONOCYTES % (AUTO) 6.1 % (2-12); NEUTROPHILS # (AUTO) 13.9 X10'3 (1.8-7.7); NEUTROPHILS % (AUTO) 80.5 % (42-75); PLATELET COUNT 133 X10'3 (140-440); RED BLOOD COUNT 3.07 X10'6 (4.70-6.10); RED CELL DISTRIBUTION WIDTH 14.4 % (11.5-14.5)
[2024-08-05 10:35] LABS: ALANINE AMINOTRANSFERASE 70 U/L (12-78); ALBUMIN 1.8 G/DL (3.4-5.0); ALBUMIN/GLOBULIN RATIO 0.5 (1.1-1.5); ALKALINE PHOSPHATASE 330 IU/L (46-116); ANION GAP 4 (8-16); ASPARTATE AMINO TRANSFERASE 46 U/L (10-37); BILIRUBIN,TOTAL 1.4 MG/DL (0.1-1.0); BLOOD UREA NITROGEN 15 MG/DL (7-18); BUN/CREATININE RATIO 19.2 (10.0-20.0); CALCIUM 8.1 MG/DL (8.5-10.1); CHLORIDE 97 MMOL/L (99-107); CREATININE 0.78 MG/DL (0.60-1.10); GLUCOSE 98 MG/DL (70-104); POTASSIUM 3.2 MMOL/L (3.5-5.1); SODIUM 134 MMOL/L (135-145); TOTAL CARBON DIOXIDE 33.2 MMOL/L (24-32); TOTAL PROTEIN 5.6 G/DL (6.4-8.2); eCRCL 132 ML/MIN; eGFR > 90 ML/MIN
[2024-08-05] MEDS: methylPREDNISolone sod succ/PF 40mg inj. IV SCH (12:50)
[2024-08-05 13:52] LABS: MAGNESIUM 1.5 MG/DL (1.5-2.4)
[2024-08-05] MEDS ORDERED: Dextrose 10%-water IV solution 1,000 ML IV PRN (16:05)
[2024-08-05 16:18] LABS: PHOSPHORUS 3.6 MG/DL (2.3-4.5); PREALBUMIN 12.1 MG/DL (19-36)
[2024-08-05] MEDS: HYDROmorphone/PF 0.2 MG/ML SYRINGE IV PRN (16:31)
[2024-08-05] MEDS: MVI, adult No.4 with vit. K 10 ML in dextrose 5% water 500ml 500 ML IV SCH (17:53)
[2024-08-05] MEDS: fat emulsion 20% inj. 100 ML IV SCH (17:54)
[2024-08-05] MEDS: MANGANESE IV SCH (18:01)
[2024-08-05] MEDS: COPPER IV SCH (18:01)
[2024-08-05] MEDS: SELENIUM IV SCH (18:01)
[2024-08-05] MEDS: CHROMIC CHLORIDE IV SCH (18:01)
[2024-08-05] MEDS: [UNRECOGNIZED DRUG - OTHER] IV SCH (18:01)
[2024-08-05] MEDS: ZINC IV SCH (18:01)
[2024-08-05] MEDS: LORazepam 2 mg/ml vial IV PRN (23:47)
[2024-08-06] VITALS (15 sets, daily range): BP systolic 120–145; BP diastolic 65–87; PULSE 64–82; RESP 16–22; TEMP 97.7–98.8; O2SAT 83–98
[2024-08-06 09:31] LABS: ALANINE AMINOTRANSFERASE 56 U/L (12-78); ALBUMIN 1.8 G/DL (3.4-5.0); ALBUMIN/GLOBULIN RATIO 0.5 (1.1-1.5); ALKALINE PHOSPHATASE 368 IU/L (46-116); ANION GAP 5 (8-16); ASPARTATE AMINO TRANSFERASE 33 U/L (10-37); BILIRUBIN,TOTAL 1.1 MG/DL (0.1-1.0); BLOOD UREA NITROGEN 7 MG/DL (7-18); BUN/CREATININE RATIO 9.7 (10.0-20.0); CALCIUM 8.3 MG/DL (8.5-10.1); CHLORIDE 98 MMOL/L (99-107); CREATININE 0.72 MG/DL (0.60-1.10); GLUCOSE 104 MG/DL (70-104); MAGNESIUM 1.6 MG/DL (1.5-2.4); PHOSPHORUS 3.7 MG/DL (2.3-4.5); POTASSIUM 3.7 MMOL/L (3.5-5.1); SODIUM 134 MMOL/L (135-145); TOTAL CARBON DIOXIDE 30.7 MMOL/L (24-32); TOTAL PROTEIN 5.7 G/DL (6.4-8.2); eCRCL 143 ML/MIN; eGFR > 90 ML/MIN
[2024-08-06 10:05] LABS: BASOPHILS % (AUTO) 0.3 % (0-1); EOSINOPHILS # (AUTO) 0.1 X10'3 (0-0.9); HEMATOCRIT 34.9 % (42.0-52.0); PLATELET COUNT 162 X10'3 (140-440)
[2024-08-06 10:06] LABS: EOSINOPHILS % (AUTO) 0.6 % (0-6); HEMOGLOBIN 11.2 g/dl (14.0-17.9); LYMPHOCYTES # (AUTO) 1.7 X10'3 (1.1-4.8); LYMPHOCYTES % (AUTO) 8.8 % (21-51); MEAN CORPUSCULAR HEMOGLOBIN 35.5 PG (27.0-31.0); MONOCYTES # (AUTO) 1.2 X10'3 (0-0.9); NEUTROPHILS # (AUTO) 16.1 X10'3 (1.8-7.7); NEUTROPHILS % (AUTO) 84.3 % (42-75); RED BLOOD COUNT 3.14 X10'6 (4.70-6.10); RED CELL DISTRIBUTION WIDTH 14.7 % (11.5-14.5); WHITE BLOOD COUNT 19.1 X10'3 (4.5-11.0)
[2024-08-06 13:09] LABS: NUCLEATED RED BLOOD CELLS 2 /100WBC (0-0); PLATELET ESTIMATE NORMAL; TOTAL CELLS COUNTED 100
[2024-08-06 13:15] LABS: POLYCHROMASIA FEW; STOMATOCYTES 3+
[2024-08-06] MEDS: diatr meglu/diatrizoate 30ml oral sol.-(3 dose) bottle PO SCH (20:34)
[2024-08-07] VITALS (17 sets, daily range): BP systolic 108–136; BP diastolic 65–89; PULSE 52–87; RESP 14–20; TEMP 97.6–98.1; O2SAT 86–97
[2024-08-07 06:51] LABS: ALANINE AMINOTRANSFERASE 50 U/L (12-78); ALBUMIN 1.8 G/DL (3.4-5.0); ALBUMIN/GLOBULIN RATIO 0.4 (1.1-1.5); ALKALINE PHOSPHATASE 373 IU/L (46-116); ANION GAP 8 (8-16); ASPARTATE AMINO TRANSFERASE 31 U/L (10-37); BILIRUBIN,TOTAL 1.1 MG/DL (0.1-1.0); BLOOD UREA NITROGEN 11 MG/DL (7-18); BUN/CREATININE RATIO 15.7 (10.0-20.0); CALCIUM 8.3 MG/DL (8.5-10.1); CHLORIDE 97 MMOL/L (99-107); GLUCOSE 114 MG/DL (70-104); MAGNESIUM 1.3 MG/DL (1.5-2.4); PREALBUMIN 14.4 MG/DL (19-36); SODIUM 133 MMOL/L (135-145); TOTAL CARBON DIOXIDE 28.3 MMOL/L (24-32); TRIGLYCERIDES 131 MG/DL (20-135); eCRCL 147 ML/MIN; eGFR > 90 ML/MIN
[2024-08-07] MEDS ORDERED: magnesium sulf-water 2g/50mL 50 ML IV PRN (07:25)
[2024-08-07] MEDS ORDERED: magnesium sulf-water 4G/100mL 100 ML IV PRN (07:25)
[2024-08-07] MEDS ORDERED: potassium Cl 20 mEq SR tablet PO PRN (07:25)
[2024-08-07] MEDS: K and/or MAG REPLACEMENT MC SCH (08:00)
[2024-08-07 09:05] LABS: BASOPHILS # (AUTO) 0.1 X10'3 (0-0.2); BASOPHILS % (AUTO) 0.4 % (0-1); EOSINOPHILS # (AUTO) 0.2 X10'3 (0-0.9); HEMATOCRIT 35.2 % (42.0-52.0); HEMOGLOBIN 11.1 g/dl (14.0-17.9); LYMPHOCYTES # (AUTO) 1.5 X10'3 (1.1-4.8); LYMPHOCYTES % (AUTO) 7.1 % (21-51); MEAN CORPUSCULAR HGB CONC 31.6 g/dL (33.0-36.5); MEAN CORPUSCULAR VOLUME 110.8 FL (78-98); MEAN PLATELET VOLUME 10.8 FL (7.4-10.4); MONOCYTES % (AUTO) 4.9 % (2-12); NEUTROPHILS # (AUTO) 18.4 X10'3 (1.8-7.7); NEUTROPHILS % (AUTO) 86.6 % (42-75); PLATELET COUNT 195 X10'3 (140-440); RED BLOOD COUNT 3.18 X10'6 (4.70-6.10); RED CELL DISTRIBUTION WIDTH 14.8 % (11.5-14.5); WHITE BLOOD COUNT 21.2 X10'3 (4.5-11.0)
[2024-08-07] MEDS: Dakins solution (1/4 strength) 473ml solution TP SCH (10:17)
[2024-08-07] MEDS ORDERED: normal saline 1000ml 1,000 ML IV SCH (10:40)
[2024-08-07] MEDS: normal saline 500ml IV soln 500 ML IV SCH (11:27)
[2024-08-07] MEDS: potassium Cl 40MEQ/1/2NS 520ml 520 ML IV PRN (11:27)
[2024-08-07] MEDS: HYDROmorphone inj. 0.5 MG/0.5 ML DISP.SYRIN IV PRN (14:19)
[2024-08-07] MEDS ORDERED: iohexol 300mg/ml 100ml inj. ONE (14:32)
[2024-08-07] MEDS: oxyCODONE/APAP 10/325mg tablet PO PRN (19:16)
[2024-08-07] MEDS: magnesium Cl slow-release 64mg tablet PO PRN (21:22)
[2024-08-07] MEDS: HYDROmorphone 1 mg/ml syringe IV PRN (21:23)
[2024-08-08] VITALS (15 sets, daily range): BP systolic 121–122; BP diastolic 76–86; PULSE 65–77; RESP 12–20; TEMP 97–98.1; O2SAT 93–100
[2024-08-08 06:17] LABS: MAGNESIUM 1.4 MG/DL (1.5-2.4); PHOSPHORUS 3.4 MG/DL (2.3-4.5)
[2024-08-08 08:22] LABS: ALANINE AMINOTRANSFERASE 34 U/L (12-78); ALBUMIN 1.8 G/DL (3.4-5.0); ALBUMIN/GLOBULIN RATIO 0.4 (1.1-1.5); ALKALINE PHOSPHATASE 259 IU/L (46-116); ANION GAP 7 (8-16); ASPARTATE AMINO TRANSFERASE 26 U/L (10-37); BLOOD UREA NITROGEN 11 MG/DL (7-18); BUN/CREATININE RATIO 15.3 (10.0-20.0); CALCIUM 8.1 MG/DL (8.5-10.1); CHLORIDE 100 MMOL/L (99-107); CREATININE 0.72 MG/DL (0.60-1.10); GLUCOSE 111 MG/DL (70-104); POTASSIUM 3.5 MMOL/L (3.5-5.1); SODIUM 134 MMOL/L (135-145); TOTAL CARBON DIOXIDE 27.2 MMOL/L (24-32); TOTAL PROTEIN 6.2 G/DL (6.4-8.2); eCRCL 143 ML/MIN; eGFR > 90 ML/MIN
[2024-08-08 08:24] LABS: BASOPHILS # (AUTO) 0.1 X10'3 (0-0.2); BASOPHILS % (AUTO) 0.3 % (0-1); EOSINOPHILS # (AUTO) 0.1 X10'3 (0-0.9); EOSINOPHILS % (AUTO) 0.6 % (0-6); HEMATOCRIT 33.2 % (42.0-52.0); LYMPHOCYTES # (AUTO) 1.5 X10'3 (1.1-4.8); LYMPHOCYTES % (AUTO) 7.5 % (21-51); MEAN CORPUSCULAR HEMOGLOBIN 36.2 PG (27.0-31.0); MEAN CORPUSCULAR HGB CONC 33.1 g/dL (33.0-36.5); MEAN CORPUSCULAR VOLUME 109.2 FL (78-98); MEAN PLATELET VOLUME 10.5 FL (7.4-10.4); MONOCYTES # (AUTO) 1.2 X10'3 (0-0.9); NEUTROPHILS # (AUTO) 17.7 X10'3 (1.8-7.7); NEUTROPHILS % (AUTO) 85.6 % (42-75); PLATELET COUNT 238 X10'3 (140-440); RED BLOOD COUNT 3.04 X10'6 (4.70-6.10); RED CELL DISTRIBUTION WIDTH 14.5 % (11.5-14.5); WHITE BLOOD COUNT 20.7 X10'3 (4.5-11.0)
[2024-08-08 09:51] LABS: PLATELET ESTIMATE NORMAL; TOTAL CELLS COUNTED 100
[2024-08-08 09:52] LABS: POLYCHROMASIA FEW; STOMATOCYTES 1+
[2024-08-09] VITALS (21 sets, daily range): BP systolic 104–171; BP diastolic 74–91; PULSE 62–87; RESP 16–20; TEMP 96.1–98; O2SAT 93–99
[2024-08-09 06:14] LABS: BASOPHILS # (AUTO) 0.1 X10'3 (0-0.2); EOSINOPHILS # (AUTO) 0.2 X10'3 (0-0.9); HEMOGLOBIN 11.3 g/dl (14.0-17.9); MEAN CORPUSCULAR HEMOGLOBIN 36.2 PG (27.0-31.0); NEUTROPHILS # (AUTO) 14.2 X10'3 (1.8-7.7)
[2024-08-09 06:15] LABS: BASOPHILS % (AUTO) 0.4 % (0-1); HEMATOCRIT 33.9 % (42.0-52.0); LYMPHOCYTES # (AUTO) 1.7 X10'3 (1.1-4.8); LYMPHOCYTES % (AUTO) 9.5 % (21-51); MEAN CORPUSCULAR HGB CONC 33.3 g/dL (33.0-36.5); MEAN CORPUSCULAR VOLUME 108.6 FL (78-98); MONOCYTES # (AUTO) 1.6 X10'3 (0-0.9); NEUTROPHILS % (AUTO) 80.1 % (42-75); PLATELET COUNT 270 X10'3 (140-440); RED BLOOD COUNT 3.12 X10'6 (4.70-6.10); RED CELL DISTRIBUTION WIDTH 14.8 % (11.5-14.5); WHITE BLOOD COUNT 17.7 X10'3 (4.5-11.0)
[2024-08-09 06:19] LABS: ALANINE AMINOTRANSFERASE 33 U/L (12-78); ALBUMIN 1.8 G/DL (3.4-5.0); ALBUMIN/GLOBULIN RATIO 0.4 (1.1-1.5); ALKALINE PHOSPHATASE 263 IU/L (46-116); ANION GAP 8 (8-16); ASPARTATE AMINO TRANSFERASE 30 U/L (10-37); BILIRUBIN,TOTAL 1.1 MG/DL (0.1-1.0); BLOOD UREA NITROGEN 10 MG/DL (7-18); BUN/CREATININE RATIO 13.7 (10.0-20.0); CALCIUM 8.5 MG/DL (8.5-10.1); CHLORIDE 99 MMOL/L (99-107); CREATININE 0.73 MG/DL (0.60-1.10); GLUCOSE 108 MG/DL (70-104); MAGNESIUM 1.4 MG/DL (1.5-2.4); PHOSPHORUS 3.2 MG/DL (2.3-4.5); POTASSIUM 3.3 MMOL/L (3.5-5.1); SODIUM 134 MMOL/L (135-145); TOTAL CARBON DIOXIDE 27.4 MMOL/L (24-32); TOTAL PROTEIN 6.7 G/DL (6.4-8.2); eCRCL 141 ML/MIN; eGFR > 90 ML/MIN
[2024-08-09 08:46] LABS: TOTAL CELLS COUNTED 100
[2024-08-09 08:47] LABS: LARGE PLATELETS MODERATE; PLATELET ESTIMATE NORMAL
[2024-08-09 08:48] LABS: GIANT PLATELET FEW
[2024-08-09] MEDS: potassium Cl 20 mEq SR tablet PO PRN (09:15)
[2024-08-09] MEDS: lactose-reduced food (Ensure Enlive) - 237ml bottle PO SCH (18:04)
[2024-08-10] VITALS (18 sets, daily range): BP systolic 110–130; BP diastolic 77–83; PULSE 65–92; RESP 12–20; TEMP 97.4–98.2; O2SAT 93–98
[2024-08-10] MEDS: magnesium Cl slow-release 64mg tablet PO PRN (02:24)
[2024-08-10] MEDS ORDERED: magnesium sulf-water 2g/50mL 50 ML IV PRN (02:50)
[2024-08-10] MEDS ORDERED: magnesium Cl slow-release 64mg tablet PO PRN (02:50)
[2024-08-10] MEDS ORDERED: magnesium sulf-water 4G/100mL 100 ML IV PRN (02:50)
[2024-08-10] MEDS ORDERED: potassium Cl 40MEQ/1/2NS 520ml 520 ML IV PRN (02:50)
[2024-08-10 06:10] LABS: BASOPHILS # (AUTO) 0.1 X10'3 (0-0.2); BASOPHILS % (AUTO) 0.6 % (0-1); HEMOGLOBIN 11.5 g/dl (14.0-17.9); WHITE BLOOD COUNT 15.1 X10'3 (4.5-11.0)
[2024-08-10 06:12] LABS: EOSINOPHILS # (AUTO) 0.2 X10'3 (0-0.9); EOSINOPHILS % (AUTO) 1.1 % (0-6); HEMATOCRIT 33.6 % (42.0-52.0); LYMPHOCYTES # (AUTO) 1.6 X10'3 (1.1-4.8); LYMPHOCYTES % (AUTO) 10.5 % (21-51); MEAN CORPUSCULAR HGB CONC 34.2 g/dL (33.0-36.5); MEAN PLATELET VOLUME 10.5 FL (7.4-10.4); MONOCYTES # (AUTO) 1.9 X10'3 (0-0.9); MONOCYTES % (AUTO) 12.9 % (2-12); NEUTROPHILS # (AUTO) 11.3 X10'3 (1.8-7.7); NEUTROPHILS % (AUTO) 74.9 % (42-75); PLATELET COUNT 368 X10'3 (140-440); RED BLOOD COUNT 3.11 X10'6 (4.70-6.10); RED CELL DISTRIBUTION WIDTH 14.4 % (11.5-14.5)
[2024-08-10 06:31] LABS: ALANINE AMINOTRANSFERASE 29 U/L (12-78); ALBUMIN 1.8 G/DL (3.4-5.0); ALBUMIN/GLOBULIN RATIO 0.4 (1.1-1.5); ALKALINE PHOSPHATASE 269 IU/L (46-116); ANION GAP 8 (8-16); ASPARTATE AMINO TRANSFERASE 20 U/L (10-37); BILIRUBIN,TOTAL 0.9 MG/DL (0.1-1.0); BLOOD UREA NITROGEN 8 MG/DL (7-18); BUN/CREATININE RATIO 10.7 (10.0-20.0); CALCIUM 8.6 MG/DL (8.5-10.1); CHLORIDE 98 MMOL/L (99-107); CREATININE 0.75 MG/DL (0.60-1.10); GLUCOSE 100 MG/DL (70-104); MAGNESIUM 1.4 MG/DL (1.5-2.4); PHOSPHORUS 3.9 MG/DL (2.3-4.5); POTASSIUM 3.4 MMOL/L (3.5-5.1); PREALBUMIN 13.4 MG/DL (19-36); SODIUM 133 MMOL/L (135-145); TOTAL CARBON DIOXIDE 27.3 MMOL/L (24-32); TOTAL PROTEIN 6.6 G/DL (6.4-8.2); TRIGLYCERIDES 130 MG/DL (20-135); eCRCL 138 ML/MIN; eGFR > 90 ML/MIN
[2024-08-10 06:51] LABS: TOTAL CELLS COUNTED 100
[2024-08-10 06:52] LABS: GIANT PLATELET FEW; LARGE PLATELETS FEW; PLATELET ESTIMATE NORMAL
[2024-08-10] MEDS: K and/or MAG REPLACEMENT MC SCH (08:00)
[2024-08-10] MEDS: potassium Cl 20 mEq SR tablet PO PRN ×2 (09:08→21:49)
[2024-08-10] MEDS: lactose-reduced food (Ensure High Protein) 237ml bottle PO SCH (18:19)
[2024-08-11] VITALS (8 sets, daily range): BP systolic 122; BP diastolic 79; PULSE 67–71; RESP 14–18; TEMP 98.7; O2SAT 95–96
[2024-08-11] MEDS: ondansetron/PF 4mg/2ml inj IV PRN (04:33)
[2024-08-11 06:03] LABS: ALANINE AMINOTRANSFERASE 30 U/L (12-78); ALBUMIN/GLOBULIN RATIO 0.4 (1.1-1.5); ALKALINE PHOSPHATASE 350 IU/L (46-116); ANION GAP 8 (8-16); ASPARTATE AMINO TRANSFERASE 24 U/L (10-37); BLOOD UREA NITROGEN 9 MG/DL (7-18); BUN/CREATININE RATIO 11.3 (10.0-20.0); CALCIUM 8.9 MG/DL (8.5-10.1); CHLORIDE 96 MMOL/L (99-107); GLUCOSE 98 MG/DL (70-104); MAGNESIUM 1.5 MG/DL (1.5-2.4); PHOSPHORUS 4.3 MG/DL (2.3-4.5); POTASSIUM 3.9 MMOL/L (3.5-5.1); SODIUM 131 MMOL/L (135-145); TOTAL CARBON DIOXIDE 27.1 MMOL/L (24-32); TOTAL PROTEIN 7.4 G/DL (6.4-8.2); eCRCL 129 ML/MIN; eGFR > 90 ML/MIN
[2024-08-11 06:22] LABS: BASOPHILS # (AUTO) 0.1 X10'3 (0-0.2); BASOPHILS % (AUTO) 0.8 % (0-1); EOSINOPHILS # (AUTO) 0.2 X10'3 (0-0.9); EOSINOPHILS % (AUTO) 1.1 % (0-6); HEMATOCRIT 34.1 % (42.0-52.0); HEMOGLOBIN 11.4 g/dl (14.0-17.9); LYMPHOCYTES # (AUTO) 1.7 X10'3 (1.1-4.8); LYMPHOCYTES % (AUTO) 10.6 % (21-51); MEAN CORPUSCULAR HEMOGLOBIN 35.9 PG (27.0-31.0); MEAN CORPUSCULAR HGB CONC 33.4 g/dL (33.0-36.5); MEAN CORPUSCULAR VOLUME 107.4 FL (78-98); MEAN PLATELET VOLUME 10.5 FL (7.4-10.4); MONOCYTES # (AUTO) 2.6 X10'3 (0-0.9); MONOCYTES % (AUTO) 15.9 % (2-12); NEUTROPHILS # (AUTO) 11.5 X10'3 (1.8-7.7); NEUTROPHILS % (AUTO) 71.6 % (42-75); PLATELET COUNT 442 X10'3 (140-440); RED BLOOD COUNT 3.18 X10'6 (4.70-6.10); RED CELL DISTRIBUTION WIDTH 14.6 % (11.5-14.5); WHITE BLOOD COUNT 16.1 X10'3 (4.5-11.0)
[2024-08-11 07:15] LABS: PLATELET ESTIMATE NORMAL; TOTAL CELLS COUNTED 100
[2024-08-11 07:17] LABS: GIANT PLATELET FEW; POLYCHROMASIA 2+
[2024-08-11] MEDS: proCHLORperazine 10 MG/2 ml inj IV PRN (08:41)
[2024-08-11] MEDS ORDERED: PROC10TA97 PO (10:07)
[2024-08-11] MEDS ORDERED: AMOX-580 PO (10:07)
[2024-08-11] MEDS ORDERED: LACT1CAP76 PO (10:07)
[2024-08-11] MEDS ORDERED: HYDR-3972 PO (10:07)
[2024-08-11] MEDS ORDERED: ONDA-243 PO (10:07)
== END 2024-08-11 14:13 | disposition home health service (06) | DRG 710 ==
LOC: ER 13:21 → ED HOLD 16:58 → ORTHO 4S 20:32 → SUR 3N 08-07 19:20
PROVIDERS: ADMIT Family Medicine; ATTEND Family Medicine
PROC: 0DQ60ZZ Repair Stomach, Open Approach (ICD-10-PCS; 2024-07-30)
PROC: 0D9600Z Drainage of Stomach with Drainage Device, Open Approach (ICD-10-PCS; 2024-07-30)
PROC: 0DQA0ZZ Repair Jejunum, Open Approach (ICD-10-PCS; 2024-07-30)
PROC: BW211ZZ Computerized Tomography (CT Scan) of Abdomen and Pelvis using Low Osmolar Contrast (ICD-10-PCS; 2024-07-30)
PROC: 0DQ90ZZ Repair Duodenum, Open Approach (ICD-10-PCS; principal; 2024-07-30 17:36)
PROC: 5A0935A Assistance with Respiratory Ventilation, Less than 24 Consecutive Hours, High Flow/Velocity Cannula (ICD-10-PCS; 2024-07-31)
PROC: 0D160ZA Bypass Stomach to Jejunum, Open Approach (ICD-10-PCS; 2024-08-01)
PROC: 5A09357 Assistance with Respiratory Ventilation, Less than 24 Consecutive Hours, Continuous Positive Airway Pressure (ICD-10-PCS; 2024-08-01)
PROC: 5A0955A Assistance with Respiratory Ventilation, Greater than 96 Consecutive Hours, High Flow/Velocity Cannula (ICD-10-PCS; 2024-08-01)
PROC: BW251ZZ Computerized Tomography (CT Scan) of Chest, Abdomen and Pelvis using Low Osmolar Contrast (ICD-10-PCS; 2024-08-04)
PROC: BW211ZZ Computerized Tomography (CT Scan) of Abdomen and Pelvis using Low Osmolar Contrast (ICD-10-PCS; 2024-08-07)
DX: A41.9 Sepsis, unspecified organism (principal); J96.00 Acute respiratory failure, unspecified whether with hypoxia or hypercapnia; K25.5 Chronic or unspecified gastric ulcer with perforation; N17.0 Acute kidney failure with tubular necrosis; I50.33 Acute on chronic diastolic (congestive) heart failure; K26.5 Chronic or unspecified duodenal ulcer with perforation; K65.9 Peritonitis, unspecified; K76.0 Fatty (change of) liver, not elsewhere classified; E83.42 Hypomagnesemia; R74.01 Elevation of levels of liver transaminase levels; F10.21 Alcohol dependence, in remission; F17.210 Nicotine dependence, cigarettes, uncomplicated; J44.1 Chronic obstructive pulmonary disease with (acute) exacerbation; R65.20 Severe sepsis without septic shock; G89.29 Other chronic pain; M54.9 Dorsalgia, unspecified; Z98.84 Bariatric surgery status; Z79.82 Long term (current) use of aspirin; Z79.899 Other long term (current) drug therapy
CPT/HCPCS: 36415; 36600; 71045; 71260; 74177; 80048; 80053; 80076; 80320; 82803; 82948; 83605; 83735; 83880; 84100; 84134; 84145; 84478; 84484; 85007; 85018; 85025; 85651; 86140; 87040; 87081; 93005; 93306; 94640; 94660; 94668; 94760; 96365; 96375; 97116; 97161; 97530; 99285; A4615; A4618; A5200; A6213; A6234; A6253; A6258; A6446; A6449; A7000; C9290; G0378; J0131; J0694; J0780; J1100; J1171; J1650; J1940; J2060; J2250; J2270; J2405; J2470; J2543; J2704; J2710; J2919; J3010; J3475; J3480; J3490; J7030; J7040; J7060; J7120; P9045; Q0163; Q9963; Q9967

== ENCOUNTER 2024-08-12 11:53 | Inpatient (IN) | payer MEDICAID ==
[~2024-08-12] VITALS: Ht 185.4 cm; Wt 100.0 kg
[~2024-08-12 11:53] MED LIST changes: +ALBU8HFA INH; +AMOX-580 PO; +ARIP5TAB53 PO; -ASPI81TA52 PO; -DISU250T15 PO; -DULO30CA52 PO; +DULO60CA65 PO; -IBUP-1986 PO; +LACT1CAP76 PO; +LYR25C PO; +ONDA-243 PO; -PRAZ1CAP5 PO; +PRAZ2CAP2 PO; +PROC10TA97 PO
[2024-08-12 13:04] LABS: BASOPHILS # (AUTO) 0.2 X10'3 (0-0.2); BASOPHILS % (AUTO) 1.2 % (0-1); EOSINOPHILS % (AUTO) 0.1 % (0-6); HEMATOCRIT 38.4 % (42.0-52.0); HEMOGLOBIN 13.1 g/dl (14.0-17.9); LYMPHOCYTES # (AUTO) 2.6 X10'3 (1.1-4.8); LYMPHOCYTES % (AUTO) 15.3 % (21-51); MEAN CORPUSCULAR HEMOGLOBIN 36.3 PG (27.0-31.0); MEAN CORPUSCULAR HGB CONC 34.1 g/dL (33.0-36.5); MEAN CORPUSCULAR VOLUME 106.6 FL (78-98); MONOCYTES # (AUTO) 2.6 X10'3 (0-0.9); MONOCYTES % (AUTO) 14.8 % (2-12); NEUTROPHILS # (AUTO) 11.8 X10'3 (1.8-7.7); NEUTROPHILS % (AUTO) 68.6 % (42-75); PLATELET COUNT 559 X10'3 (140-440); RED BLOOD COUNT 3.61 X10'6 (4.70-6.10); RED CELL DISTRIBUTION WIDTH 14.6 % (11.5-14.5); WHITE BLOOD COUNT 17.3 X10'3 (4.5-11.0)
[2024-08-12 13:19] LABS: ALANINE AMINOTRANSFERASE 28 U/L (12-78); ALBUMIN 2.4 G/DL (3.4-5.0); ALBUMIN/GLOBULIN RATIO 0.4 (1.1-1.5); ALKALINE PHOSPHATASE 395 IU/L (46-116); ANION GAP 12 (8-16); ASPARTATE AMINO TRANSFERASE 27 U/L (10-37); BLOOD UREA NITROGEN 16 MG/DL (7-18); BUN/CREATININE RATIO 19.3 (10.0-20.0); CALCIUM 9.4 MG/DL (8.5-10.1); CHLORIDE 91 MMOL/L (99-107); CREATININE 0.83 MG/DL (0.60-1.10); GLUCOSE 114 MG/DL (70-104); POTASSIUM 3.4 MMOL/L (3.5-5.1); SODIUM 132 MMOL/L (135-145); TOTAL CARBON DIOXIDE 29.1 MMOL/L (24-32); TOTAL PROTEIN 8.3 G/DL (6.4-8.2); eCRCL 124 ML/MIN; eGFR > 90 ML/MIN
[2024-08-12 13:20] LABS: BILIRUBIN,DIRECT 0.5 MG/DL (0-0.3)
[2024-08-12 13:25] LABS: PLATELET ESTIMATE INCREASED; TOTAL CELLS COUNTED 100
[2024-08-12 13:26] LABS: GIANT PLATELET FEW; LARGE PLATELETS MODERATE; POLYCHROMASIA FEW
[2024-08-12] MEDS: proCHLORperazine 10mg tablet PO ONE (13:46)
[2024-08-12] MEDS: HYDROcodone/acetaminophen 10/325mg tab PO ONE (13:47)
[2024-08-12] MEDS: normal saline 1000ML IV soln IVB ONE (14:12)
[2024-08-12] MEDS: HYDROmorphone inj. 0.5 MG/0.5 ML DISP.SYRIN IV ONE (14:33)
[2024-08-12] MEDS ORDERED: potassium Cl 40MEQ/1/2NS 520ml 520 ML IV PRN (15:05)
[2024-08-12] MEDS ORDERED: magnesium hydroxide 30ml (MOM) UD suspension PO PRN (15:05)
[2024-08-12] MEDS ORDERED: magnesium sulf-water 4G/100mL 100 ML IV PRN (15:05)
[2024-08-12] MEDS ORDERED: magnesium Cl slow-release 64mg tablet PO PRN (15:05)
[2024-08-12] MEDS ORDERED: morphine 2 MG/ML inj. syringe IV PRN (15:05)
[2024-08-12] MEDS ORDERED: acetaminophen 325mg tablet PO PRN (15:05)
[2024-08-12] MEDS ORDERED: HYDROcodone/acetaminophen 5mg/325mg tablet PO PRN (15:05)
[2024-08-12] MEDS ORDERED: ondansetron 4mg rapidly disintigrating tab PO PRN (15:05)
[2024-08-12] MEDS ORDERED: dextrose 50%-water 50ml dispensing syringe IV PRN (15:05)
[2024-08-12] MEDS ORDERED: potassium Cl 20 mEq SR tablet PO PRN (15:05)
[2024-08-12] MEDS ORDERED: magnesium sulf-water 2g/50mL 50 ML IV PRN (15:05)
[2024-08-12] MEDS ORDERED: haloperidol lactate 5mg/ml inj IM PRN (15:05)
[2024-08-12] MEDS ORDERED: metoclopramide 10mg tablet PO PRN (15:15)
[2024-08-12] MEDS: nicotine 14mg patch - 24hr TD SCH (15:36)
[2024-08-12] MEDS ORDERED: proCHLORperazine 10mg tablet PO PRN (15:45)
[2024-08-12 15:57] LABS: PRO BRAIN NATRIURETIC PEPTIDE 102 PG/ML (0-125)
[2024-08-12] MEDS: ringers solution, lacted 1,000 ML IV SCH (16:04)
[2024-08-12] MEDS: morphine 2 MG/ML inj. syringe IV PRN (17:13)
[2024-08-12] MEDS: piperacillin/tazo 4.5gm/100ml 100 ML IV SCH (17:14)
[2024-08-12] MEDS ORDERED: amox tr/potassium clavulanate 875/125mg TAB PO SCH (17:30)
[2024-08-12 17:32] LABS: BILIRUBIN,URINE MODERATE (Neg); CLARITY,URINE SLIGHTLY CLOUDY (Clear); COLOR,URINE YELLOW (Yellow); GLUCOSE, URINE 100 mg/dl (Neg); KETONES,URINE 40 mg/dl (Neg); LEUKOCYTE ESTERASE ,URINE NEGATIVE (Neg); OCCULT BLOOD,URINE NEGATIVE (Neg); PH,URINE 5.5 (4.8-8.0); PROTEIN,URINE 30 mg/dl (Neg)
[2024-08-12 17:39] LABS: UA COLLECTION TYPE CLN CATCH MIDSTREAM
[2024-08-12 17:40] LABS: NITRITES, URINE NEGATIVE (Neg)
[2024-08-12 17:41] LABS: BACTERIA,URINE NONE SEEN /HPF (Neg); MUCUS STRANDS FEW /LPF (Neg); RBC,URINE NONE SEEN /HPF (0-2); SQUAMOUS EPITHELIAL CELL,UR NONE SEEN /LPF (FEW); WBC,URINE 0-4 /HPF (0-4)
[2024-08-12] MEDS: ringers solution, lacted 1,000 ML IV ONE (17:47)
[2024-08-12] MEDS: K and/or MAG REPLACEMENT MC SCH (20:00)
[2024-08-12] MEDS: docusate sod 100mg capsule PO SCH (20:00)
[2024-08-13] VITALS (8 sets, daily range): BP systolic 111–121; BP diastolic 65–78; PULSE 59–80; RESP 14–16; TEMP 97.3–98.7; O2SAT 94–98
[2024-08-13] MEDS: HYDROcodone/acetaminophen 10/325mg tab PO PRN (00:01)
[2024-08-13] MEDS: potassium Cl 20 mEq SR tablet PO PRN (03:29)
[2024-08-13 05:56] LABS: BASOPHILS # (AUTO) 0.2 X10'3 (0-0.2); BASOPHILS % (AUTO) 1.2 % (0-1); EOSINOPHILS # (AUTO) 0.1 X10'3 (0-0.9); EOSINOPHILS % (AUTO) 0.7 % (0-6); HEMATOCRIT 33.2 % (42.0-52.0); LYMPHOCYTES # (AUTO) 1.6 X10'3 (1.1-4.8); LYMPHOCYTES % (AUTO) 10.6 % (21-51); MEAN CORPUSCULAR HEMOGLOBIN 35.4 PG (27.0-31.0); MEAN CORPUSCULAR HGB CONC 33.1 g/dL (33.0-36.5); MEAN CORPUSCULAR VOLUME 107.1 FL (78-98); MEAN PLATELET VOLUME 10.1 FL (7.4-10.4); MONOCYTES # (AUTO) 2.2 X10'3 (0-0.9); MONOCYTES % (AUTO) 14.5 % (2-12); NEUTROPHILS # (AUTO) 11.2 X10'3 (1.8-7.7); PLATELET COUNT 497 X10'3 (140-440); RED CELL DISTRIBUTION WIDTH 14.8 % (11.5-14.5); WHITE BLOOD COUNT 15.3 X10'3 (4.5-11.0)
[2024-08-13 06:03] LABS: PROTHROMBIN TIME 10.9 SECONDS (9.0-12.0)
[2024-08-13 06:11] LABS: ALANINE AMINOTRANSFERASE 29 U/L (12-78); ALBUMIN/GLOBULIN RATIO 0.4 (1.1-1.5); ALKALINE PHOSPHATASE 447 IU/L (46-116); ANION GAP 8 (8-16); ASPARTATE AMINO TRANSFERASE 30 U/L (10-37); BILIRUBIN,TOTAL 0.8 MG/DL (0.1-1.0); BLOOD UREA NITROGEN 14 MG/DL (7-18); BUN/CREATININE RATIO 19.2 (10.0-20.0); CALCIUM 8.8 MG/DL (8.5-10.1); CHLORIDE 95 MMOL/L (99-107); CREATININE 0.73 MG/DL (0.60-1.10); GLUCOSE 97 MG/DL (70-104); MAGNESIUM 1.6 MG/DL (1.5-2.4); PHOSPHORUS 4.2 MG/DL (2.3-4.5); POTASSIUM 3.6 MMOL/L (3.5-5.1); SODIUM 132 MMOL/L (135-145); TOTAL CARBON DIOXIDE 28.7 MMOL/L (24-32); TOTAL PROTEIN 6.8 G/DL (6.4-8.2); eCRCL 141 ML/MIN; eGFR > 90 ML/MIN
[2024-08-13 07:34] LABS: PLATELET ESTIMATE INCREASED; TOTAL CELLS COUNTED 100
[2024-08-13 07:35] LABS: POLYCHROMASIA FEW
[2024-08-13] MEDS: multivitamins, therapeutics tablet PO SCH (07:35)
[2024-08-13] MEDS: ondansetron/PF 4mg/2ml inj IV PRN (07:52)
[2024-08-13] MEDS: enoxaparin 40mg/0.4ml syringe SUBCUT SCH (20:00)
[2024-08-13] MEDS: diatr meglu/diatrizoate 30ml oral sol.-(3 dose) bottle PO SCH (21:43)
[2024-08-14] VITALS (7 sets, daily range): BP systolic 112–129; BP diastolic 70–75; PULSE 64–84; RESP 16–20; TEMP 96.9–98.9; O2SAT 96–100
[2024-08-14] MEDS: mag hydrox/Alum hydrox/simeth 30ml oral suspension PO PRN (01:07)
[2024-08-14 05:54] LABS: BASOPHILS # (AUTO) 0.1 X10'3 (0-0.2); BASOPHILS % (AUTO) 1.1 % (0-1); EOSINOPHILS # (AUTO) 0.3 X10'3 (0-0.9); EOSINOPHILS % (AUTO) 2.1 % (0-6); HEMOGLOBIN 10.7 g/dl (14.0-17.9); LYMPHOCYTES # (AUTO) 2.6 X10'3 (1.1-4.8); LYMPHOCYTES % (AUTO) 21.6 % (21-51); MEAN CORPUSCULAR HEMOGLOBIN 35.7 PG (27.0-31.0); MEAN CORPUSCULAR HGB CONC 33.5 g/dL (33.0-36.5); MEAN CORPUSCULAR VOLUME 106.5 FL (78-98); MEAN PLATELET VOLUME 9.6 FL (7.4-10.4); MONOCYTES # (AUTO) 1.8 X10'3 (0-0.9); NEUTROPHILS # (AUTO) 7.3 X10'3 (1.8-7.7); NEUTROPHILS % (AUTO) 60.2 % (42-75); PLATELET COUNT 480 X10'3 (140-440); RED BLOOD COUNT 3.01 X10'6 (4.70-6.10); RED CELL DISTRIBUTION WIDTH 14.6 % (11.5-14.5); WHITE BLOOD COUNT 12.1 X10'3 (4.5-11.0)
[2024-08-14 05:55] LABS: PROTHROMBIN TIME 10.8 SECONDS (9.0-12.0)
[2024-08-14 06:01] LABS: ALANINE AMINOTRANSFERASE 34 U/L (12-78); ALBUMIN 1.9 G/DL (3.4-5.0); ALBUMIN/GLOBULIN RATIO 0.4 (1.1-1.5); ALKALINE PHOSPHATASE 432 IU/L (46-116); ANION GAP 8 (8-16); ASPARTATE AMINO TRANSFERASE 33 U/L (10-37); BILIRUBIN,TOTAL 0.6 MG/DL (0.1-1.0); BLOOD UREA NITROGEN 6 MG/DL (7-18); BUN/CREATININE RATIO 8.2 (10.0-20.0); CALCIUM 8.3 MG/DL (8.5-10.1); CHLORIDE 98 MMOL/L (99-107); CREATININE 0.73 MG/DL (0.60-1.10); GLUCOSE 92 MG/DL (70-104); MAGNESIUM 1.5 MG/DL (1.5-2.4); PHOSPHORUS 3.7 MG/DL (2.3-4.5); POTASSIUM 3.4 MMOL/L (3.5-5.1); SODIUM 133 MMOL/L (135-145); TOTAL CARBON DIOXIDE 26.8 MMOL/L (24-32); TOTAL PROTEIN 6.3 G/DL (6.4-8.2); eCRCL 141 ML/MIN; eGFR > 90 ML/MIN
[2024-08-14] MEDS ORDERED: iohexol 300mg/ml 100ml inj. ONE (09:14)
[2024-08-14 09:38] LABS: TOTAL CELLS COUNTED 100
[2024-08-14 09:39] LABS: PLATELET ESTIMATE INCREASED; POLYCHROMASIA FEW; STOMATOCYTES 1+
[2024-08-14] MEDS: Dakins solution (1/4 strength) 473ml solution TP SCH (20:00)
[2024-08-15 05:25] LABS: ALANINE AMINOTRANSFERASE 44 U/L (12-78); ALBUMIN 1.9 G/DL (3.4-5.0); ALBUMIN/GLOBULIN RATIO 0.5 (1.1-1.5); ALKALINE PHOSPHATASE 490 IU/L (46-116); ANION GAP 8 (8-16); ASPARTATE AMINO TRANSFERASE 39 U/L (10-37); BILIRUBIN,TOTAL 0.6 MG/DL (0.1-1.0); BLOOD UREA NITROGEN 4 MG/DL (7-18); BUN/CREATININE RATIO 6.3 (10.0-20.0); CALCIUM 8.3 MG/DL (8.5-10.1); CHLORIDE 102 MMOL/L (99-107); CREATININE 0.63 MG/DL (0.60-1.10); GLUCOSE 97 MG/DL (70-104); MAGNESIUM 1.6 MG/DL (1.5-2.4); PHOSPHORUS 3.7 MG/DL (2.3-4.5); POTASSIUM 3.6 MMOL/L (3.5-5.1); SODIUM 135 MMOL/L (135-145); TOTAL PROTEIN 6.1 G/DL (6.4-8.2); eCRCL 164 ML/MIN; eGFR > 90 ML/MIN
[2024-08-15 05:45] LABS: INR 1.1 INR
[2024-08-15 07:38] VITALS: RESP 16; O2SAT 95
[2024-08-15 07:53] LABS: BASOPHILS # (AUTO) 0.1 X10'3 (0-0.2); BASOPHILS % (AUTO) 1.1 % (0-1); EOSINOPHILS # (AUTO) 0.3 X10'3 (0-0.9); EOSINOPHILS % (AUTO) 2.8 % (0-6); HEMOGLOBIN 10.7 g/dl (14.0-17.9); LYMPHOCYTES # (AUTO) 1.8 X10'3 (1.1-4.8); LYMPHOCYTES % (AUTO) 15.8 % (21-51); MEAN CORPUSCULAR HEMOGLOBIN 35.9 PG (27.0-31.0); MEAN CORPUSCULAR HGB CONC 33.5 g/dL (33.0-36.5); MEAN CORPUSCULAR VOLUME 107.4 FL (78-98); MEAN PLATELET VOLUME 9.4 FL (7.4-10.4); MONOCYTES # (AUTO) 1.4 X10'3 (0-0.9); MONOCYTES % (AUTO) 12.5 % (2-12); NEUTROPHILS # (AUTO) 7.6 X10'3 (1.8-7.7); NEUTROPHILS % (AUTO) 67.8 % (42-75); PLATELET COUNT 458 X10'3 (140-440); RED BLOOD COUNT 2.98 X10'6 (4.70-6.10); RED CELL DISTRIBUTION WIDTH 15.1 % (11.5-14.5); WHITE BLOOD COUNT 11.3 X10'3 (4.5-11.0)
[2024-08-15 07:58] VITALS: BP 118/73; PULSE 67; RESP 16; TEMP 98.5; O2SAT 95
[2024-08-15 08:08] LABS: PLATELET ESTIMATE INCREASED; TOTAL CELLS COUNTED 100
[2024-08-15 08:09] LABS: POLYCHROMASIA 1+; STOMATOCYTES 1+; TEAR DROP CELLS FEW
[2024-08-15 10:00] VITALS: BP 122/79; PULSE 61; RESP 18; TEMP 98; O2SAT 97
[2024-08-15 18:00] VITALS: BP 123/79; PULSE 58; RESP 16; TEMP 97.4; O2SAT 98
[2024-08-15 20:00] VITALS: RESP 16
[2024-08-15 22:00] VITALS: BP 124/72; PULSE 61; RESP 14; TEMP 96.9; O2SAT 95
[2024-08-16 05:55] LABS: BASOPHILS # (AUTO) 0.1 X10'3 (0-0.2); BASOPHILS % (AUTO) 0.6 % (0-1); EOSINOPHILS # (AUTO) 0.2 X10'3 (0-0.9); EOSINOPHILS % (AUTO) 1.6 % (0-6); HEMATOCRIT 33.8 % (42.0-52.0); HEMOGLOBIN 10.9 g/dl (14.0-17.9); LYMPHOCYTES # (AUTO) 1.9 X10'3 (1.1-4.8); LYMPHOCYTES % (AUTO) 14.2 % (21-51); MEAN CORPUSCULAR HEMOGLOBIN 34.9 PG (27.0-31.0); MEAN CORPUSCULAR HGB CONC 32.2 g/dL (33.0-36.5); MEAN CORPUSCULAR VOLUME 108.2 FL (78-98); MEAN PLATELET VOLUME 9.7 FL (7.4-10.4); MONOCYTES # (AUTO) 1.3 X10'3 (0-0.9); NEUTROPHILS # (AUTO) 9.8 X10'3 (1.8-7.7); NEUTROPHILS % (AUTO) 73.6 % (42-75); PLATELET COUNT 455 X10'3 (140-440); RED BLOOD COUNT 3.13 X10'6 (4.70-6.10); RED CELL DISTRIBUTION WIDTH 14.8 % (11.5-14.5); WHITE BLOOD COUNT 13.3 X10'3 (4.5-11.0)
[2024-08-16 06:00] VITALS: BP 119/72; PULSE 63; RESP 13; TEMP 97; O2SAT 98
[2024-08-16 06:13] LABS: ALANINE AMINOTRANSFERASE 44 U/L (12-78); ALBUMIN 2.1 G/DL (3.4-5.0); ALBUMIN/GLOBULIN RATIO 0.5 (1.1-1.5); ALKALINE PHOSPHATASE 478 IU/L (46-116); ANION GAP 6 (8-16); ASPARTATE AMINO TRANSFERASE 29 U/L (10-37); BILIRUBIN,TOTAL 0.6 MG/DL (0.1-1.0); BLOOD UREA NITROGEN 5 MG/DL (7-18); BUN/CREATININE RATIO 7.8 (10.0-20.0); CALCIUM 8.4 MG/DL (8.5-10.1); CHLORIDE 101 MMOL/L (99-107); CREATININE 0.64 MG/DL (0.60-1.10); GLUCOSE 115 MG/DL (70-104); MAGNESIUM 1.5 MG/DL (1.5-2.4); PHOSPHORUS 3.3 MG/DL (2.3-4.5); POTASSIUM 3.5 MMOL/L (3.5-5.1); SODIUM 132 MMOL/L (135-145); TOTAL PROTEIN 6.4 G/DL (6.4-8.2); eCRCL 161 ML/MIN; eGFR > 90 ML/MIN
[2024-08-16 06:36] LABS: PROTHROMBIN TIME 10.7 SECONDS (9.0-12.0)
[2024-08-16 08:00] VITALS: RESP 13; O2SAT 98
[2024-08-16 10:44] VITALS: BP 122/83; PULSE 66; RESP 12; TEMP 97.8; O2SAT 98
[2024-08-16 14:53] VITALS: RESP 18
[2024-08-17] MEDS ORDERED: thiamine 100mg tablet PO SCH (08:00)
[2024-08-17] MEDS ORDERED: folic acid 1mg tablet PO SCH (08:00)
== END 2024-08-16 15:55 | disposition home health service (06) | DRG 249 ==
LOC: ER 11:53 → ED HOLD 14:03 → SUR 3N 08-13 02:50
PROVIDERS: ADMIT Internal Medicine; ATTEND Internal Medicine
PROC: BW211ZZ Computerized Tomography (CT Scan) of Abdomen and Pelvis using Low Osmolar Contrast (ICD-10-PCS; principal; 2024-08-14)
DX: R11.2 Nausea with vomiting, unspecified (principal); E87.8 Other disorders of electrolyte and fluid balance, not elsewhere classified; E87.1 Hypo-osmolality and hyponatremia; R10.9 Unspecified abdominal pain; D72.829 Elevated white blood cell count, unspecified; E87.6 Hypokalemia; F10.10 Alcohol abuse, uncomplicated; Y90.9 Presence of alcohol in blood, level not specified; F17.210 Nicotine dependence, cigarettes, uncomplicated; D75.839 Thrombocytosis, unspecified; G89.29 Other chronic pain; Z85.828 Personal history of other malignant neoplasm of skin; I25.2 Old myocardial infarction; Z85.118 Personal history of other malignant neoplasm of bronchus and lung
CPT/HCPCS: 36415; 74177; 80048; 80053; 80076; 81001; 82948; 83605; 83735; 83880; 84100; 84145; 85007; 85025; 85610; 87081; 99285; A4615; A6253; A6449; G0378; J1171; J2270; J2405; J2543; J7030; J7120; Q0164; Q9963; Q9967

== ENCOUNTER 2024-08-25 07:20 | Day surgery (SDC) | payer MEDICAID ==
[2024-08-25] VITALS (15 sets, daily range): BP systolic 97–123; BP diastolic 63–76; PULSE 63–74; RESP 14–18; TEMP 97.8; O2SAT 94–99
[~2024-08-25] VITALS: Ht 185.4 cm; Wt 87.0 kg
[~2024-08-25 07:20] MED LIST changes: -AMOX-580 PO; -DIPH25CA83 PO; -HYDR-3972 PO
[2024-08-25] MEDS ORDERED: HYDR-3972 PO (07:55)
[2024-08-25] MEDS ORDERED: DIPH25CA83 PO (08:02)
[2024-08-25] MEDS ORDERED: ASPI81TA52 PO (08:02)
[2024-08-25] MEDS ORDERED: CHOL20002 PO (08:02)
[2024-08-25] MEDS ORDERED: fentaNYL/PF 50MCG/1 ML 2ML syringe ONE (08:55)
[2024-08-25] MEDS ORDERED: midazolam 1 mg/ML 2ml injection ONE (08:56)
== END 2024-08-25 12:10 | disposition home or self-care (01) ==
LOC: SSTAY O 07:20
PROVIDERS: ATTEND Radiology Diagnostic Radiology
DX: L02.211 Cutaneous abscess of abdominal wall (principal)
CPT/HCPCS: 49406; 87070; 87077; 87186; C1769; J2250; J3010; J7040; A4421; A6258; C1729

== ENCOUNTER 2024-09-22 07:38 | Day surgery (SDC) | payer MEDICAID ==
[~2024-09-22] VITALS: Ht 185.4 cm; Wt 94.7 kg
[2024-09-22] VITALS (7 sets, daily range): BP systolic 107–117; BP diastolic 61–78; PULSE 60–63; RESP 14–17; TEMP 98; O2SAT 95–98
[~2024-09-22 07:38] MED LIST changes: +ASPI81TA52 PO; +CHOL20002 PO; -CHOL20003 PO; +DIPH25CA83 PO; +HYDR-3972 PO; -LACT1CAP76 PO; -ONDA-243 PO; -PROC10TA97 PO
[2024-09-22 09:09] LABS: BASOPHILS # (AUTO) 0.1 X10'3 (0-0.2); EOSINOPHILS # (AUTO) 0.3 X10'3 (0-0.9); EOSINOPHILS % (AUTO) 3.5 % (0-6); HEMATOCRIT 39.1 % (42.0-52.0); HEMOGLOBIN 13.5 g/dl (14.0-17.9); LYMPHOCYTES % (AUTO) 22.5 % (21-51); MEAN CORPUSCULAR HEMOGLOBIN 36.2 PG (27.0-31.0); MEAN CORPUSCULAR HGB CONC 34.5 g/dL (33.0-36.5); MEAN CORPUSCULAR VOLUME 104.7 FL (78-98); MEAN PLATELET VOLUME 8.3 FL (7.4-10.4); MONOCYTES # (AUTO) 0.8 X10'3 (0-0.9); MONOCYTES % (AUTO) 9.4 % (2-12); NEUTROPHILS # (AUTO) 5.6 X10'3 (1.8-7.7); NEUTROPHILS % (AUTO) 63.6 % (42-75); PLATELET COUNT 244 X10'3 (140-440); RED BLOOD COUNT 3.74 X10'6 (4.70-6.10); RED CELL DISTRIBUTION WIDTH 13.3 % (11.5-14.5); WHITE BLOOD COUNT 8.8 X10'3 (4.5-11.0)
[2024-09-22 09:13] LABS: INR 0.9 INR; PROTHROMBIN TIME 9.9 SECONDS (9.0-12.0)
[2024-09-22 09:20] LABS: ALANINE AMINOTRANSFERASE 15 U/L (12-78); ALBUMIN 2.8 G/DL (3.4-5.0); ALBUMIN/GLOBULIN RATIO 0.8 (1.1-1.5); ALKALINE PHOSPHATASE 71 IU/L (46-116); ANION GAP 6 (8-16); ASPARTATE AMINO TRANSFERASE 13 U/L (10-37); BILIRUBIN,TOTAL 0.2 MG/DL (0.1-1.0); BLOOD UREA NITROGEN 8 MG/DL (7-18); BUN/CREATININE RATIO 11.9 (10.0-20.0); CALCIUM 8.5 MG/DL (8.5-10.1); CHLORIDE 105 MMOL/L (99-107); CREATININE 0.67 MG/DL (0.60-1.10); GLUCOSE 91 MG/DL (70-104); POTASSIUM 4.4 MMOL/L (3.5-5.1); SODIUM 142 MMOL/L (135-145); TOTAL CARBON DIOXIDE 30.6 MMOL/L (24-32); TOTAL PROTEIN 6.4 G/DL (6.4-8.2); eCRCL 154 ML/MIN; eGFR > 90 ML/MIN
[2024-09-22] MEDS ORDERED: LIDOcaine 1% (10mg/ml)w/preservative inj. 20ml MDV ONE (09:37)
[2024-09-22] MEDS ORDERED: midazolam 1 mg/ML 2ml injection ONE (09:59)
[2024-09-22] MEDS ORDERED: fentaNYL/PF 50MCG/1 ML 2ML syringe ONE (09:59)
[2024-10-04] MEDS ORDERED: PANT40TA54 PO (09:29)
[2024-10-04] MEDS ORDERED: AMOX-100 PO (10:06)
== END 2024-09-22 11:00 | disposition home or self-care (01) ==
LOC: SSTAY O 07:38
PROVIDERS: ATTEND Radiology Diagnostic Radiology
DX: Z48.03 Encounter for change or removal of drains (principal); L02.211 Cutaneous abscess of abdominal wall; Z79.891 Long term (current) use of opiate analgesic
CPT/HCPCS: 36415; 49423; 80053; 85025; 85610; J3490; J7030; 49406; A4421; A4615; A6258; A6449; C1729; C1769; J2250; J3010

== ENCOUNTER 2024-09-29 12:53 | Emergency (ER) | payer MEDICAID ==
[~2024-09-29] VITALS: Ht 185.4 cm; Wt 95.5 kg
[2024-09-29 13:03] VITALS: TEMP 98.2
[2024-09-29 15:11] LABS: BASOPHILS # (AUTO) 0.1 X10'3 (0-0.2); EOSINOPHILS # (AUTO) 0.2 X10'3 (0-0.9); HEMOGLOBIN 14.6 g/dl (14.0-17.9); LYMPHOCYTES # (AUTO) 2.9 X10'3 (1.1-4.8); LYMPHOCYTES % (AUTO) 34.8 % (21-51); MEAN CORPUSCULAR HEMOGLOBIN 35.2 PG (27.0-31.0); MEAN CORPUSCULAR VOLUME 103.6 FL (78-98); MEAN PLATELET VOLUME 8.6 FL (7.4-10.4); MONOCYTES # (AUTO) 0.6 X10'3 (0-0.9); MONOCYTES % (AUTO) 6.7 % (2-12); NEUTROPHILS # (AUTO) 4.5 X10'3 (1.8-7.7); NEUTROPHILS % (AUTO) 54.5 % (42-75); PLATELET COUNT 305 X10'3 (140-440); RED BLOOD COUNT 4.15 X10'6 (4.70-6.10); RED CELL DISTRIBUTION WIDTH 13.3 % (11.5-14.5); WHITE BLOOD COUNT 8.3 X10'3 (4.5-11.0)
[2024-09-29 15:18] LABS: ALBUMIN 3.4 G/DL (3.4-5.0); ANION GAP 8 (8-16); BLOOD UREA NITROGEN 7 MG/DL (7-18); BUN/CREATININE RATIO 9.7 (10.0-20.0); CHLORIDE 102 MMOL/L (99-107); CREATININE 0.72 MG/DL (0.60-1.10); GLUCOSE 95 MG/DL (70-104); POTASSIUM 4.3 MMOL/L (3.5-5.1); SODIUM 138 MMOL/L (135-145); TOTAL CARBON DIOXIDE 28.2 MMOL/L (24-32); eCRCL 143 ML/MIN; eGFR > 90 ML/MIN
[2024-09-29 16:30] VITALS: BP 116/76; PULSE 55; RESP 16; O2SAT 96
== END 2024-09-29 17:06 | disposition home or self-care (01) ==
LOC: ER 12:54
DX: K25.1 Acute gastric ulcer with perforation (principal); G89.29 Other chronic pain; Z79.899 Other long term (current) drug therapy; Z79.82 Long term (current) use of aspirin
CPT/HCPCS: 36415; 74176; 80048; 83605; 84145; 85025; 87040; 99284

== ENCOUNTER 2024-10-04 12:24 | Inpatient (IN) | payer MEDICAID ==
[~2024-10-04] VITALS: Ht 185.4 cm; Wt 99.1 kg
[~2024-10-04 12:24] MED LIST changes: -normal saline 1000ml 1,000 ML IV PRN
[2024-10-04] MEDS: HYDROmorphone 1 mg/ml syringe IV ONE (14:05)
[2024-10-04] MEDS: normal saline 1000ml 1,000 ML IV ONE (14:05)
[2024-10-04] MEDS: ondansetron/PF 4mg/2ml inj IV ONE (14:06)
[2024-10-04] MEDS: piperacillin/tazo 3.375gm/50ml 50 ML IV SCH (14:07)
[2024-10-04] MEDS: nicotine 21mg patch - 24 hr TD ONE (15:15)
[2024-10-04] MEDS ORDERED: magnesium sulf-water 4G/100mL 100 ML IV PRN (15:30)
[2024-10-04] MEDS ORDERED: mag hydrox/Alum hydrox/simeth 30ml oral suspension PO PRN (15:30)
[2024-10-04] MEDS ORDERED: magnesium sulf-water 2g/50mL 50 ML IV PRN (15:30)
[2024-10-04] MEDS ORDERED: potassium Cl 40MEQ/1/2NS 520ml 520 ML IV PRN (15:30)
[2024-10-04] MEDS ORDERED: morphine 2 MG/ML inj. syringe IV PRN (15:30)
[2024-10-04] MEDS ORDERED: potassium Cl 20 mEq SR tablet PO PRN (15:30)
[2024-10-04] MEDS ORDERED: ondansetron/PF 4mg/2ml inj IV PRN (15:30)
[2024-10-04] MEDS ORDERED: acetaminophen 325mg tablet PO PRN (15:30)
[2024-10-04] MEDS ORDERED: magnesium hydroxide 30ml (MOM) UD suspension PO PRN (15:30)
[2024-10-04] MEDS: normal saline 1000ml 1,000 ML IV SCH (16:02)
[2024-10-04 16:08] LABS: BASOPHILS # (AUTO) 0.1 X10'3 (0-0.2); BASOPHILS % (AUTO) 0.7 % (0-1); EOSINOPHILS # (AUTO) 0.2 X10'3 (0-0.9); EOSINOPHILS % (AUTO) 2.2 % (0-6); HEMATOCRIT 39.9 % (42.0-52.0); HEMOGLOBIN 13.6 g/dl (14.0-17.9); LYMPHOCYTES # (AUTO) 1.6 X10'3 (1.1-4.8); LYMPHOCYTES % (AUTO) 14.4 % (21-51); MEAN CORPUSCULAR HEMOGLOBIN 35.1 PG (27.0-31.0); MEAN CORPUSCULAR VOLUME 103.3 FL (78-98); MEAN PLATELET VOLUME 8.6 FL (7.4-10.4); MONOCYTES # (AUTO) 0.5 X10'3 (0-0.9); MONOCYTES % (AUTO) 4.9 % (2-12); NEUTROPHILS # (AUTO) 8.6 X10'3 (1.8-7.7); NEUTROPHILS % (AUTO) 77.8 % (42-75); PLATELET COUNT 251 X10'3 (140-440); RED BLOOD COUNT 3.86 X10'6 (4.70-6.10); RED CELL DISTRIBUTION WIDTH 13.2 % (11.5-14.5)
[2024-10-04 16:23] LABS: ALKALINE PHOSPHATASE 105 IU/L (46-116); ASPARTATE AMINO TRANSFERASE 76 U/L (10-37); BILIRUBIN,TOTAL 0.5 MG/DL (0.1-1.0); BLOOD UREA NITROGEN 11 MG/DL (7-18); BUN/CREATININE RATIO 13.9 (10.0-20.0); CHLORIDE 107 MMOL/L (99-107); CREATININE 0.79 MG/DL (0.60-1.10); SODIUM 141 MMOL/L (135-145); eCRCL 131 ML/MIN; eGFR > 90 ML/MIN
[2024-10-04 16:41] LABS: ANION GAP 9 (8-16); GLUCOSE 130 MG/DL (70-104); TOTAL CARBON DIOXIDE 25.5 MMOL/L (24-32)
[2024-10-04 16:42] LABS: ALANINE AMINOTRANSFERASE 40 U/L (12-78); ALBUMIN/GLOBULIN RATIO 0.9 (1.1-1.5); CALCIUM 8.5 MG/DL (8.5-10.1); TOTAL PROTEIN 6.4 G/DL (6.4-8.2)
[2024-10-04] MEDS ORDERED: diatrozoate meglu/diatrozoate sod (37% iodine) 120ML oral solution PO ONE (17:30)
[2024-10-04] MEDS: morphine 2 MG/ML inj. syringe IV PRN (19:29)
[2024-10-04] MEDS: docusate sod 100mg capsule PO SCH (19:30)
[2024-10-04] MEDS: K and/or MAG REPLACEMENT MC SCH (19:30)
[2024-10-04 20:34] LABS: BILIRUBIN,URINE NEGATIVE (Neg); CLARITY,URINE CLEAR (Clear); COLOR,URINE YELLOW (Yellow); GLUCOSE, URINE NEGATIVE (Neg); KETONES,URINE NEGATIVE (Neg); LEUKOCYTE ESTERASE ,URINE NEGATIVE (Neg); NITRITES, URINE NEGATIVE (Neg); OCCULT BLOOD,URINE NEGATIVE (Neg); PROTEIN,URINE NEGATIVE (Neg); UROBILINOGEN,URINE 0.2 E.U/dL (0.2-1.0)
[2024-10-04 20:44] LABS: UA COLLECTION TYPE CLN CATCH MIDSTREAM
[2024-10-04] MEDS ORDERED: diatr meglu/diatrizoate 30ml oral sol.-(3 dose) bottle PO SCH (21:00)
[2024-10-05] VITALS (17 sets, daily range): BP systolic 125–148; BP diastolic 60–96; PULSE 61–94; RESP 12–22; TEMP 97.1–98.6; O2SAT 93–98
[2024-10-05 03:42] LABS: BASOPHILS % (AUTO) 0.7 % (0-1); EOSINOPHILS # (AUTO) 0.2 X10'3 (0-0.9); HEMATOCRIT 38.2 % (42.0-52.0); HEMOGLOBIN 13.1 g/dl (14.0-17.9); LYMPHOCYTES # (AUTO) 1.1 X10'3 (1.1-4.8); MEAN CORPUSCULAR HEMOGLOBIN 35.3 PG (27.0-31.0); MEAN CORPUSCULAR HGB CONC 34.2 g/dL (33.0-36.5); MEAN CORPUSCULAR VOLUME 103.1 FL (78-98); MEAN PLATELET VOLUME 8.8 FL (7.4-10.4); MONOCYTES # (AUTO) 0.4 X10'3 (0-0.9); NEUTROPHILS # (AUTO) 4.6 X10'3 (1.8-7.7); NEUTROPHILS % (AUTO) 73.3 % (42-75); PLATELET COUNT 217 X10'3 (140-440); RED BLOOD COUNT 3.71 X10'6 (4.70-6.10); RED CELL DISTRIBUTION WIDTH 13.3 % (11.5-14.5); WHITE BLOOD COUNT 6.3 X10'3 (4.5-11.0)
[2024-10-05 03:56] LABS: ALANINE AMINOTRANSFERASE 90 U/L (12-78); ALBUMIN 2.8 G/DL (3.4-5.0); ALBUMIN/GLOBULIN RATIO 0.9 (1.1-1.5); ALKALINE PHOSPHATASE 134 IU/L (46-116); ANION GAP 9 (8-16); ASPARTATE AMINO TRANSFERASE 97 U/L (10-37); BILIRUBIN,TOTAL 0.5 MG/DL (0.1-1.0); BLOOD UREA NITROGEN 8 MG/DL (7-18); BUN/CREATININE RATIO 12.9 (10.0-20.0); CALCIUM 8.6 MG/DL (8.5-10.1); CHLORIDE 105 MMOL/L (99-107); CREATININE 0.62 MG/DL (0.60-1.10); GLUCOSE 92 MG/DL (70-104); MAGNESIUM 1.5 MG/DL (1.5-2.4); POTASSIUM 3.8 MMOL/L (3.5-5.1); SODIUM 142 MMOL/L (135-145); TOTAL CARBON DIOXIDE 27.8 MMOL/L (24-32); eCRCL 166 ML/MIN; eGFR > 90 ML/MIN
[2024-10-05] MEDS: HYDROmorphone/PF 0.2 MG/ML SYRINGE IV PRN (08:43)
[2024-10-05] MEDS ORDERED: ondansetron/PF 4mg/2ml inj IV PRN (11:05)
[2024-10-05] MEDS ORDERED: fentaNYL/PF 50MCG/1 ML 2ML syringe IV PRN ×2 (11:05)
[2024-10-05] MEDS: ringers solution, lacted 1,000 ML IV SCH (11:05)
[2024-10-05] MEDS ORDERED: morphine 2 MG/ML inj. syringe IV PRN (11:05)
[2024-10-05] MEDS ORDERED: labetalol 20mg/4ml (5mg/ml) syringe IV PRN (11:05)
[2024-10-05] MEDS ORDERED: hydrALAZINE 20mg/ml inj. IV PRN ×2 (11:05→13:25)
[2024-10-05] MEDS ORDERED: dexmedetomidine 200mcg/2ml inj. IV ONE (12:54)
[2024-10-05] MEDS ORDERED: sevoflurane 250ml liquid IH ONE (12:55)
[2024-10-05] MEDS ORDERED: fentaNYL/PF 50MCG/1 ML 2ML syringe ONE ×2 (12:57→14:00)
[2024-10-05] MEDS ORDERED: MIDAZolam 1 MG/ML 5ML VIAL ONE (12:57)
[2024-10-05] MEDS ORDERED: LIDOcaine 2% (20mg/ml) 5ml vial ONE (12:58)
[2024-10-05] MEDS ORDERED: propofol inj 20 ML IV ONE (12:58)
[2024-10-05] MEDS ORDERED: rocuronium 10mg/ml inj IV ONE ×2 (12:58→13:36)
[2024-10-05] MEDS ORDERED: acetaminophen 1,000mg/100ml IV 100 ML IV ONE (13:08)
[2024-10-05] MEDS ORDERED: ondansetron/PF 4mg/2ml inj ONE (13:09)
[2024-10-05] MEDS ORDERED: dexamethasone sod phosphate 4mg/ml inj. ONE (13:09)
[2024-10-05] MEDS ORDERED: enalaprilat dihydrate 2.5mg/2ml vial IV PRN (13:25)
[2024-10-05] MEDS ORDERED: BUPIVACAINE liposomal/PF 13.3 MG/ML vial IM ONE (13:35)
[2024-10-05] MEDS ORDERED: BUPIVAcaine 0.5% inj/PF 30 ML ONE (13:35)
[2024-10-05] MEDS ORDERED: methylene blue (5mg/ml) 50mg/10ml ampul IV ONE (14:13)
[2024-10-05] MEDS ORDERED: sugammadex 200mg/2ml injection IV ONE (14:24)
[2024-10-05] MEDS: morphine 4 MG/ML inj SYRINge IV PRN (15:55)
[2024-10-05] MEDS: LORazepam 2 mg/ml vial IV PRN (19:22)
[2024-10-05] MEDS: pantoprazole 40 MG vial IV SCH (19:22)
[2024-10-05] MEDS: piperacillin/tazo 3.375gm/50ml 50 ML IV SCH (22:07)
[2024-10-06 06:00] VITALS: BP 136/95; PULSE 99; RESP 16; TEMP 98.1
[2024-10-06 07:42] LABS: BASOPHILS % (AUTO) 0.2 % (0-1); EOSINOPHILS % (AUTO) 0.1 % (0-6); HEMATOCRIT 41.4 % (42.0-52.0); HEMOGLOBIN 14.2 g/dl (14.0-17.9); LYMPHOCYTES # (AUTO) 1.6 X10'3 (1.1-4.8); LYMPHOCYTES % (AUTO) 10.5 % (21-51); MEAN CORPUSCULAR HEMOGLOBIN 35.2 PG (27.0-31.0); MEAN CORPUSCULAR HGB CONC 34.3 g/dL (33.0-36.5); MEAN CORPUSCULAR VOLUME 102.6 FL (78-98); MEAN PLATELET VOLUME 9.5 FL (7.4-10.4); MONOCYTES # (AUTO) 1.3 X10'3 (0-0.9); MONOCYTES % (AUTO) 8.4 % (2-12); NEUTROPHILS # (AUTO) 12.4 X10'3 (1.8-7.7); NEUTROPHILS % (AUTO) 80.8 % (42-75); PLATELET COUNT 264 X10'3 (140-440); RED BLOOD COUNT 4.04 X10'6 (4.70-6.10); RED CELL DISTRIBUTION WIDTH 13.5 % (11.5-14.5); WHITE BLOOD COUNT 15.4 X10'3 (4.5-11.0)
[2024-10-06 07:50] LABS: ALANINE AMINOTRANSFERASE 86 U/L (12-78); ALBUMIN/GLOBULIN RATIO 0.8 (1.1-1.5); ALKALINE PHOSPHATASE 139 IU/L (46-116); ANION GAP 10 (8-16); ASPARTATE AMINO TRANSFERASE 50 U/L (10-37); BILIRUBIN,TOTAL 0.7 MG/DL (0.1-1.0); BLOOD UREA NITROGEN 8 MG/DL (7-18); BUN/CREATININE RATIO 11.1 (10.0-20.0); CALCIUM 8.6 MG/DL (8.5-10.1); CHLORIDE 102 MMOL/L (99-107); CREATININE 0.72 MG/DL (0.60-1.10); GLUCOSE 110 MG/DL (70-104); MAGNESIUM 1.4 MG/DL (1.5-2.4); POTASSIUM 3.5 MMOL/L (3.5-5.1); SODIUM 139 MMOL/L (135-145); TOTAL CARBON DIOXIDE 27.1 MMOL/L (24-32); TOTAL PROTEIN 6.8 G/DL (6.4-8.2); eCRCL 143 ML/MIN; eGFR > 90 ML/MIN
[2024-10-06 08:00] VITALS: RESP 16; O2SAT 92
[2024-10-06 10:00] VITALS: BP 133/91; PULSE 86; RESP 16; TEMP 98.3; O2SAT 95
[2024-10-06] MEDS: HYDROmorphone inj. 0.5 MG/0.5 ML DISP.SYRIN IV PRN ×2 (13:52→22:16)
[2024-10-06] MEDS: magnesium Cl slow-release 64mg tablet PO PRN (16:30)
[2024-10-06 18:30] VITALS: BP 125/90; PULSE 90; RESP 16; O2SAT 96
[2024-10-06] MEDS: oxyCODONE/APAP 10/325mg tablet PO PRN (19:26)
[2024-10-06] MEDS: normal saline 1000ml 1,000 ML IV SCH (19:27)
[2024-10-06 22:00] VITALS: BP 126/84; PULSE 85; RESP 16; TEMP 97.8; O2SAT 94
[2024-10-06] MEDS: guaiFENesin 200 MG/10 ML oral syrup UD cup PO PRN (22:41)
[2024-10-07 05:00] VITALS: BP 134/88; PULSE 76; RESP 16; TEMP 97.8; O2SAT 94
[2024-10-07 07:21] LABS: BASOPHILS # (AUTO) 0.1 X10'3 (0-0.2); BASOPHILS % (AUTO) 0.4 % (0-1); EOSINOPHILS # (AUTO) 0.2 X10'3 (0-0.9); EOSINOPHILS % (AUTO) 1.6 % (0-6); HEMOGLOBIN 12.4 g/dl (14.0-17.9); LYMPHOCYTES # (AUTO) 1.1 X10'3 (1.1-4.8); LYMPHOCYTES % (AUTO) 8.5 % (21-51); MEAN CORPUSCULAR HEMOGLOBIN 34.6 PG (27.0-31.0); MEAN CORPUSCULAR HGB CONC 33.4 g/dL (33.0-36.5); MEAN CORPUSCULAR VOLUME 103.6 FL (78-98); MEAN PLATELET VOLUME 9.4 FL (7.4-10.4); MONOCYTES # (AUTO) 1.5 X10'3 (0-0.9); MONOCYTES % (AUTO) 11.8 % (2-12); NEUTROPHILS # (AUTO) 10.1 X10'3 (1.8-7.7); NEUTROPHILS % (AUTO) 77.7 % (42-75); PLATELET COUNT 245 X10'3 (140-440); RED BLOOD COUNT 3.57 X10'6 (4.70-6.10); RED CELL DISTRIBUTION WIDTH 13.3 % (11.5-14.5)
[2024-10-07 07:23] VITALS: RESP 16
[2024-10-07 07:54] LABS: ALANINE AMINOTRANSFERASE 47 U/L (12-78); ALBUMIN 2.6 G/DL (3.4-5.0); ALBUMIN/GLOBULIN RATIO 0.7 (1.1-1.5); ALKALINE PHOSPHATASE 95 IU/L (46-116); ANION GAP 9 (8-16); ASPARTATE AMINO TRANSFERASE 20 U/L (10-37); BILIRUBIN,TOTAL 0.5 MG/DL (0.1-1.0); BLOOD UREA NITROGEN 6 MG/DL (7-18); CALCIUM 8.8 MG/DL (8.5-10.1); CHLORIDE 103 MMOL/L (99-107); CREATININE 0.67 MG/DL (0.60-1.10); GLUCOSE 114 MG/DL (70-104); MAGNESIUM 2.1 MG/DL (1.5-2.4); POTASSIUM 3.3 MMOL/L (3.5-5.1); SODIUM 140 MMOL/L (135-145); TOTAL CARBON DIOXIDE 28.3 MMOL/L (24-32); TOTAL PROTEIN 6.5 G/DL (6.4-8.2); eCRCL 154 ML/MIN; eGFR > 90 ML/MIN
[2024-10-07 10:00] VITALS: BP 132/96; PULSE 73; RESP 18; TEMP 98.2; O2SAT 97
[2024-10-07] MEDS: potassium Cl 20 mEq SR tablet PO PRN (12:24)
[2024-10-07 18:00] VITALS: BP 114/71; PULSE 66; RESP 16; TEMP 98.3; O2SAT 95
[2024-10-07 22:00] VITALS: BP 122/68; PULSE 64; RESP 18; TEMP 98; O2SAT 92
[2024-10-08 06:00] VITALS: BP 125/78; PULSE 58; RESP 16; TEMP 97.9; O2SAT 96
[2024-10-08 06:36] LABS: BASOPHILS # (AUTO) 0.1 X10'3 (0-0.2); BASOPHILS % (AUTO) 0.8 % (0-1); EOSINOPHILS # (AUTO) 0.5 X10'3 (0-0.9); EOSINOPHILS % (AUTO) 7.4 % (0-6); HEMATOCRIT 33.4 % (42.0-52.0); HEMOGLOBIN 11.5 g/dl (14.0-17.9); LYMPHOCYTES # (AUTO) 1.4 X10'3 (1.1-4.8); LYMPHOCYTES % (AUTO) 19.9 % (21-51); MEAN CORPUSCULAR HEMOGLOBIN 35.7 PG (27.0-31.0); MEAN CORPUSCULAR HGB CONC 34.5 g/dL (33.0-36.5); MEAN CORPUSCULAR VOLUME 103.5 FL (78-98); MEAN PLATELET VOLUME 9.3 FL (7.4-10.4); MONOCYTES # (AUTO) 0.8 X10'3 (0-0.9); MONOCYTES % (AUTO) 10.8 % (2-12); NEUTROPHILS # (AUTO) 4.3 X10'3 (1.8-7.7); NEUTROPHILS % (AUTO) 61.1 % (42-75); PLATELET COUNT 212 X10'3 (140-440); RED BLOOD COUNT 3.23 X10'6 (4.70-6.10); RED CELL DISTRIBUTION WIDTH 13.4 % (11.5-14.5); WHITE BLOOD COUNT 7.1 X10'3 (4.5-11.0)
[2024-10-08 07:11] LABS: ALANINE AMINOTRANSFERASE 32 U/L (12-78); ALBUMIN 2.4 G/DL (3.4-5.0); ALBUMIN/GLOBULIN RATIO 0.6 (1.1-1.5); ALKALINE PHOSPHATASE 90 IU/L (46-116); ANION GAP 8 (8-16); ASPARTATE AMINO TRANSFERASE 16 U/L (10-37); BILIRUBIN,TOTAL 0.5 MG/DL (0.1-1.0); BLOOD UREA NITROGEN 4 MG/DL (7-18); BUN/CREATININE RATIO 6.6 (10.0-20.0); CALCIUM 8.6 MG/DL (8.5-10.1); CHLORIDE 108 MMOL/L (99-107); CREATININE 0.61 MG/DL (0.60-1.10); GLUCOSE 93 MG/DL (70-104); MAGNESIUM 2.6 MG/DL (1.5-2.4); POTASSIUM 3.6 MMOL/L (3.5-5.1); SODIUM 142 MMOL/L (135-145); TOTAL CARBON DIOXIDE 26.1 MMOL/L (24-32); TOTAL PROTEIN 6.2 G/DL (6.4-8.2); eCRCL 169 ML/MIN; eGFR > 90 ML/MIN
[2024-10-08 08:00] VITALS: RESP 16; O2SAT 94
[2024-10-08 10:00] VITALS: BP 116/74; PULSE 58; RESP 16; TEMP 97.4; O2SAT 94
[2024-10-08 18:30] VITALS: BP 119/82; PULSE 57; RESP 15; TEMP 97.3; O2SAT 93
[2024-10-08] MEDS: magnesium hydroxide 30ml (MOM) UD suspension PO SCH (19:32)
[2024-10-08 22:00] VITALS: BP 119/77; PULSE 61; RESP 16; TEMP 97.9; O2SAT 97
[2024-10-09 06:00] VITALS: BP 123/79; PULSE 58; RESP 16; TEMP 97.8; O2SAT 96
[2024-10-09 06:13] LABS: BASOPHILS # (AUTO) 0.1 X10'3 (0-0.2); BASOPHILS % (AUTO) 0.9 % (0-1); EOSINOPHILS # (AUTO) 0.4 X10'3 (0-0.9); EOSINOPHILS % (AUTO) 5.8 % (0-6); HEMATOCRIT 34.3 % (42.0-52.0); HEMOGLOBIN 11.5 g/dl (14.0-17.9); LYMPHOCYTES # (AUTO) 1.7 X10'3 (1.1-4.8); LYMPHOCYTES % (AUTO) 23.2 % (21-51); MEAN CORPUSCULAR HEMOGLOBIN 34.6 PG (27.0-31.0); MEAN CORPUSCULAR HGB CONC 33.6 g/dL (33.0-36.5); MEAN CORPUSCULAR VOLUME 102.9 FL (78-98); MEAN PLATELET VOLUME 9.1 FL (7.4-10.4); MONOCYTES # (AUTO) 0.8 X10'3 (0-0.9); MONOCYTES % (AUTO) 11.3 % (2-12); NEUTROPHILS # (AUTO) 4.3 X10'3 (1.8-7.7); NEUTROPHILS % (AUTO) 58.8 % (42-75); PLATELET COUNT 233 X10'3 (140-440); RED BLOOD COUNT 3.33 X10'6 (4.70-6.10); WHITE BLOOD COUNT 7.3 X10'3 (4.5-11.0)
[2024-10-09 06:23] LABS: ALANINE AMINOTRANSFERASE 24 U/L (12-78); ALBUMIN 2.4 G/DL (3.4-5.0); ALBUMIN/GLOBULIN RATIO 0.6 (1.1-1.5); ALKALINE PHOSPHATASE 117 IU/L (46-116); ANION GAP 7 (8-16); ASPARTATE AMINO TRANSFERASE 17 U/L (10-37); BILIRUBIN,TOTAL 0.4 MG/DL (0.1-1.0); BLOOD UREA NITROGEN 2 MG/DL (7-18); BUN/CREATININE RATIO 3.1 (10.0-20.0); CALCIUM 8.6 MG/DL (8.5-10.1); CHLORIDE 107 MMOL/L (99-107); CREATININE 0.65 MG/DL (0.60-1.10); GLUCOSE 97 MG/DL (70-104); POTASSIUM 3.8 MMOL/L (3.5-5.1); SODIUM 141 MMOL/L (135-145); TOTAL CARBON DIOXIDE 27.3 MMOL/L (24-32); TOTAL PROTEIN 6.3 G/DL (6.4-8.2); eCRCL 159 ML/MIN; eGFR > 90 ML/MIN
[2024-10-09 08:00] VITALS: RESP 17; O2SAT 96
[2024-10-09 10:00] VITALS: BP 112/74; PULSE 76; RESP 16; TEMP 97.8; O2SAT 98
[2024-10-09 18:00] VITALS: BP 120/78; PULSE 60; RESP 15; TEMP 98.3; O2SAT 96
[2024-10-09 20:00] VITALS: RESP 15; O2SAT 96
[2024-10-09 22:01] VITALS: BP 143/79; PULSE 86; RESP 15; TEMP 97.2; O2SAT 96
[2024-10-09] MEDS: diphenhydrAMINE 25mg capsule PO ONE (23:25)
[2024-10-10 03:21] VITALS: BP 125/86; PULSE 60; RESP 12; TEMP 97.6; O2SAT 95
[2024-10-10 08:00] VITALS: RESP 16; O2SAT 98
[2024-10-10] MEDS: pantoprazole 40mg Tablet.DR PO SCH (08:19)
[2024-10-10 09:19] VITALS: RESP 16
== END 2024-10-10 11:20 | disposition home health service (06) | DRG 224 ==
LOC: ER 12:25 → ORTHO 4S 14:54 → ED HOLD 14:59 → UNDOADMIN 14:59 → ED HOLD 10-05 09:05 → UNDOADMIN 10-05 09:05 → ED HOLD 10-05 15:17 → PACU 10-05 15:17 → ORTHO 4S 10-05 16:35 → PACU 10-05 16:35 → ORTHO 4S 10-06 14:54
PROVIDERS: ADMIT Family Medicine; ATTEND Family Medicine
PROC: 3E0T3BZ Introduction of Anesthetic Agent into Peripheral Nerves and Plexi, Percutaneous Approach (ICD-10-PCS; 2024-10-05)
PROC: 0DNW0ZZ Release Peritoneum, Open Approach (ICD-10-PCS; principal; 2024-10-05 12:55)
DX: K66.0 Peritoneal adhesions (postprocedural) (postinfection) (principal); E44.1 Mild protein-calorie malnutrition; T81.89XA Other complications of procedures, not elsewhere classified, initial encounter; R14.0 Abdominal distension (gaseous); M47.812 Spondylosis without myelopathy or radiculopathy, cervical region; Y83.8 Other surgical procedures as the cause of abnormal reaction of the patient, or of later complication, without mention of misadventure at the time of the procedure; Z68.28 Body mass index [BMI] 28.0-28.9, adult; Z82.49 Family history of ischemic heart disease and other diseases of the circulatory system; Z80.1 Family history of malignant neoplasm of trachea, bronchus and lung; Z80.8 Family history of malignant neoplasm of other organs or systems; Y92.89 Other specified places as the place of occurrence of the external cause
CPT/HCPCS: 36415; 71045; 74176; 80053; 81003; 83605; 83735; 84145; 85025; 87040; 96374; 96375; 97161; 97530; 99285; A4615; A4618; A6253; A6258; A6266; A6449; A7000; C9290; G0378; J0131; J1100; J1171; J2003; J2060; J2250; J2270; J2405; J2470; J2543; J2704; J3010; J3490; J7030; J7040; J7120; Q0163; Q9968

== ENCOUNTER → 2024-10-04 | Day surgery (SDC) | payer MEDICAID ==
[~2024-10-04] VITALS: Ht 182.9 cm; Wt 98.5 kg
[~2024-10-04] MED LIST changes: +AMOX-100 PO; +PANT40TA54 PO; +normal saline 1000ml 1,000 ML IV PRN
[2024-10-04 10:06] LABS: BASOPHILS # (AUTO) 0.1 X10'3 (0-0.2); EOSINOPHILS # (AUTO) 0.2 X10'3 (0-0.9); EOSINOPHILS % (AUTO) 2.5 % (0-6); HEMATOCRIT 38.7 % (42.0-52.0); HEMOGLOBIN 13.3 g/dl (14.0-17.9); LYMPHOCYTES # (AUTO) 1.7 X10'3 (1.1-4.8); LYMPHOCYTES % (AUTO) 22.9 % (21-51); MEAN CORPUSCULAR HEMOGLOBIN 35.4 PG (27.0-31.0); MEAN CORPUSCULAR HGB CONC 34.3 g/dL (33.0-36.5); MEAN PLATELET VOLUME 8.9 FL (7.4-10.4); MONOCYTES # (AUTO) 0.6 X10'3 (0-0.9); MONOCYTES % (AUTO) 8.6 % (2-12); NEUTROPHILS # (AUTO) 4.8 X10'3 (1.8-7.7); PLATELET COUNT 244 X10'3 (140-440); RED BLOOD COUNT 3.75 X10'6 (4.70-6.10); RED CELL DISTRIBUTION WIDTH 13.3 % (11.5-14.5); WHITE BLOOD COUNT 7.4 X10'3 (4.5-11.0)
[2024-10-04 10:11] VITALS: RESP 15; O2SAT 96
[2024-10-04 10:20] LABS: ANION GAP 9 (8-16); BLOOD UREA NITROGEN 14 MG/DL (7-18); BUN/CREATININE RATIO 21.9 (10.0-20.0); CALCIUM 8.6 MG/DL (8.5-10.1); CHLORIDE 105 MMOL/L (99-107); CREATININE 0.64 MG/DL (0.60-1.10); GLUCOSE 95 MG/DL (70-104); POTASSIUM 4.1 MMOL/L (3.5-5.1); SODIUM 141 MMOL/L (135-145); TOTAL CARBON DIOXIDE 27.3 MMOL/L (24-32); eCRCL 157 ML/MIN; eGFR > 90 ML/MIN
[2024-10-04 10:24] LABS: APTT 23 SECONDS (22-32); INR 0.9 INR; PROTHROMBIN TIME 9.8 SECONDS (9.0-12.0)
== END | disposition home or self-care (01) ==
LOC: SSTAY O 08:40
PROVIDERS: ATTEND Radiology Diagnostic Radiology
DX: L02.211 Cutaneous abscess of abdominal wall (principal); Z53.8 Procedure and treatment not carried out for other reasons; I50.33 Acute on chronic diastolic (congestive) heart failure; J44.1 Chronic obstructive pulmonary disease with (acute) exacerbation; F43.10 Post-traumatic stress disorder, unspecified; F17.210 Nicotine dependence, cigarettes, uncomplicated; Z85.828 Personal history of other malignant neoplasm of skin; Z85.118 Personal history of other malignant neoplasm of bronchus and lung; Z79.82 Long term (current) use of aspirin
CPT/HCPCS: 36415; 80048; 85025; 85610; 85730; J7030

== ENCOUNTER 2024-10-15 14:41 | Inpatient (IN) | payer MEDICAID ==
[~2024-10-15] VITALS: Ht 185.4 cm; Wt 95.3 kg
[~2024-10-15 14:41] MED LIST changes: -ASPI81TA52 PO
[2024-10-15] MEDS ORDERED: vancomycin inj 1,000 MG in normal saline 250ml IV soln 250 ML IV STA ×2 (16:44→16:56)
[2024-10-15] MEDS: piperacillin/tazo 3.375gm/50ml 50 ML IV ONE (16:45)
[2024-10-15] MEDS ORDERED: VANCOMYCIN 1GM 200ML H20 (PEG) 200 ML IV STA (16:55)
[2024-10-15] MEDS: HYDROmorphone inj. 0.5 MG/0.5 ML DISP.SYRIN IV ONE (17:33)
[2024-10-15] MEDS: vancomycin/NS 1 GM ADD-VANTAGE 250 ML IV STA (17:34)
[2024-10-15 17:47] LABS: BASOPHILS # (AUTO) 0.1 X10'3 (0-0.2); BASOPHILS % (AUTO) 0.8 % (0-1); EOSINOPHILS # (AUTO) 0.2 X10'3 (0-0.9); EOSINOPHILS % (AUTO) 1.7 % (0-6); HEMATOCRIT 36.2 % (42.0-52.0); HEMOGLOBIN 12.2 g/dl (14.0-17.9); LYMPHOCYTES # (AUTO) 2.2 X10'3 (1.1-4.8); LYMPHOCYTES % (AUTO) 19.7 % (21-51); MEAN CORPUSCULAR HEMOGLOBIN 34.6 PG (27.0-31.0); MEAN CORPUSCULAR HGB CONC 33.7 g/dL (33.0-36.5); MEAN CORPUSCULAR VOLUME 102.6 FL (78-98); MEAN PLATELET VOLUME 8.7 FL (7.4-10.4); MONOCYTES # (AUTO) 1.5 X10'3 (0-0.9); MONOCYTES % (AUTO) 13.7 % (2-12); NEUTROPHILS # (AUTO) 7.2 X10'3 (1.8-7.7); NEUTROPHILS % (AUTO) 64.1 % (42-75); PLATELET COUNT 321 X10'3 (140-440); RED BLOOD COUNT 3.52 X10'6 (4.70-6.10); RED CELL DISTRIBUTION WIDTH 13.5 % (11.5-14.5); WHITE BLOOD COUNT 11.3 X10'3 (4.5-11.0)
[2024-10-15 18:09] LABS: ALBUMIN 2.6 G/DL (3.4-5.0); ANION GAP 3 (8-16); BLOOD UREA NITROGEN 6 MG/DL (7-18); BUN/CREATININE RATIO 7.6 (10.0-20.0); CALCIUM 8.3 MG/DL (8.5-10.1); CHLORIDE 102 MMOL/L (99-107); CREATININE 0.79 MG/DL (0.60-1.10); GLUCOSE 107 MG/DL (70-104); MAGNESIUM 2.2 MG/DL (1.5-2.4); POTASSIUM 4.1 MMOL/L (3.5-5.1); SODIUM 136 MMOL/L (135-145); eCRCL 131 ML/MIN; eGFR > 90 ML/MIN
[2024-10-15] MEDS ORDERED: magnesium sulf-water 2g/50mL 50 ML IV PRN (20:20)
[2024-10-15] MEDS ORDERED: magnesium hydroxide 30ml (MOM) UD suspension PO PRN (20:20)
[2024-10-15] MEDS ORDERED: ondansetron/PF 4mg/2ml inj IV PRN (20:20)
[2024-10-15] MEDS ORDERED: magnesium sulf-water 4G/100mL 100 ML IV PRN (20:20)
[2024-10-15] MEDS ORDERED: magnesium Cl slow-release 64mg tablet PO PRN (20:20)
[2024-10-15] MEDS ORDERED: mag hydrox/Alum hydrox/simeth 30ml oral suspension PO PRN (20:20)
[2024-10-15] MEDS ORDERED: potassium Cl 40MEQ/1/2NS 520ml 520 ML IV PRN (20:20)
[2024-10-15] MEDS ORDERED: acetaminophen 325mg tablet PO PRN (20:20)
[2024-10-15] MEDS ORDERED: potassium Cl 20 mEq SR tablet PO PRN ×2 (20:20)
[2024-10-15] MEDS ORDERED: albuterol 2.5 MG/3 ML nebule NEB PRN (20:35)
[2024-10-15] MEDS: nicotine 21mg patch - 24 hr TD ONE (21:19)
[2024-10-15] MEDS: morphine 2 MG/ML inj. syringe IV PRN (21:19)
[2024-10-15] MEDS ORDERED: prazosin 5mg capsule PO SCH (21:25)
[2024-10-15] MEDS ORDERED: prazosin 1mg capsule PO SCH (21:26)
[2024-10-15] MEDS ORDERED: CARB200T8 PO (21:44)
[2024-10-15] MEDS: piperacillin/tazo 3.375gm/50ml 50 ML IV SCH (21:57)
[2024-10-15] MEDS: normal saline 1000ml 1,000 ML IV SCH (22:00)
[2024-10-15] MEDS: duloxetine 30mg CAPSULE.DR PO SCH (22:17)
[2024-10-15] MEDS: cetirizine 10mg tablet PO SCH (22:18)
[2024-10-16] MEDS: HYDROcodone/acetaminophen 10/325mg tab PO PRN (00:54)
[2024-10-16 02:32] LABS: BASOPHILS # (AUTO) 0.1 X10'3 (0-0.2); BASOPHILS % (AUTO) 0.6 % (0-1); EOSINOPHILS # (AUTO) 0.2 X10'3 (0-0.9); EOSINOPHILS % (AUTO) 1.6 % (0-6); HEMATOCRIT 36.5 % (42.0-52.0); HEMOGLOBIN 12.2 g/dl (14.0-17.9); LYMPHOCYTES # (AUTO) 2.1 X10'3 (1.1-4.8); MEAN CORPUSCULAR HEMOGLOBIN 34.3 PG (27.0-31.0); MEAN CORPUSCULAR HGB CONC 33.3 g/dL (33.0-36.5); MEAN CORPUSCULAR VOLUME 102.7 FL (78-98); MEAN PLATELET VOLUME 9.1 FL (7.4-10.4); MONOCYTES # (AUTO) 1.5 X10'3 (0-0.9); MONOCYTES % (AUTO) 13.8 % (2-12); NEUTROPHILS # (AUTO) 7.2 X10'3 (1.8-7.7); PLATELET COUNT 326 X10'3 (140-440); RED BLOOD COUNT 3.56 X10'6 (4.70-6.10); RED CELL DISTRIBUTION WIDTH 13.9 % (11.5-14.5); WHITE BLOOD COUNT 11.1 X10'3 (4.5-11.0)
[2024-10-16 02:54] LABS: ALANINE AMINOTRANSFERASE 10 U/L (12-78); ALBUMIN 2.4 G/DL (3.4-5.0); ALBUMIN/GLOBULIN RATIO 0.6 (1.1-1.5); ALKALINE PHOSPHATASE 97 IU/L (46-116); ANION GAP 4 (8-16); ASPARTATE AMINO TRANSFERASE 8 U/L (10-37); BILIRUBIN,TOTAL 0.2 MG/DL (0.1-1.0); BLOOD UREA NITROGEN 6 MG/DL (7-18); BUN/CREATININE RATIO 8.1 (10.0-20.0); CALCIUM 8.1 MG/DL (8.5-10.1); CHLORIDE 104 MMOL/L (99-107); CREATININE 0.74 MG/DL (0.60-1.10); GLUCOSE 101 MG/DL (70-104); MAGNESIUM 1.5 MG/DL (1.5-2.4); POTASSIUM 4.1 MMOL/L (3.5-5.1); SODIUM 136 MMOL/L (135-145); TOTAL CARBON DIOXIDE 28.2 MMOL/L (24-32); TOTAL PROTEIN 6.1 G/DL (6.4-8.2); eCRCL 139 ML/MIN; eGFR > 90 ML/MIN
[2024-10-16] MEDS: piperacillin/tazo 3.375gm/50ml 50 ML IV SCH (06:41)
[2024-10-16] MEDS: cholecalciferol (vitamin D3) 1,000 unit (25mcg) tablet PO SCH (07:46)
[2024-10-16] MEDS: thiamine 100mg tablet PO SCH (07:46)
[2024-10-16] MEDS: potassium Cl 20 mEq SR tablet PO SCH (07:47)
[2024-10-16] MEDS: pregabalin 25mg capsule PO SCH (07:47)
[2024-10-16] MEDS: aripiprazole 5mg tablet PO SCH (07:47)
[2024-10-16] MEDS: docusate sod 100mg capsule PO SCH (07:47)
[2024-10-16] MEDS: diphenhydrAMINE 25mg capsule PO SCH (07:47)
[2024-10-16] MEDS: K and/or MAG REPLACEMENT MC SCH (07:52)
[2024-10-16] MEDS: heparin, porcine 5000 units/ml vial SQ SCH (07:53)
[2024-10-16] MEDS: pantoprazole 40mg Tablet.DR PO SCH (07:56)
[2024-10-16] MEDS ORDERED: metoprolol succinate 25mg (24-HOUR) SR. Tablet PO SCH (08:00)
[2024-10-16] MEDS ORDERED: carBAMazepine Ext. Release 200 MG TAB.ER.12H PO SCH (08:00)
[2024-10-16] MEDS: carBAMazepine 100mg chewable tablet PO SCH (08:29)
[2024-10-16] MEDS: vancomycin/NS 1 GM ADD-VANTAGE 250 ML IV SCH ×2 (08:55→18:52)
[2024-10-16] MEDS: HYDROcodone/acetaminophen 5mg/325mg tablet PO SCH (13:28)
[2024-10-16 19:50] VITALS: BP 114/71; PULSE 64; RESP 20; TEMP 98.8; O2SAT 96
[2024-10-16 21:31] VITALS: PULSE 56; RESP 18; O2SAT 95
[2024-10-16 22:00] VITALS: BP 113/73; PULSE 63; RESP 18; TEMP 97.8; O2SAT 94
[2024-10-17] VITALS (7 sets, daily range): BP systolic 118–150; BP diastolic 45–84; PULSE 60–71; RESP 14–18; TEMP 97.8–98.6; O2SAT 94–99
[2024-10-17 05:21] LABS: BASOPHILS % (AUTO) 0.7 % (0-1); EOSINOPHILS # (AUTO) 0.3 X10'3 (0-0.9); EOSINOPHILS % (AUTO) 4.4 % (0-6); LYMPHOCYTES # (AUTO) 1.4 X10'3 (1.1-4.8); LYMPHOCYTES % (AUTO) 23.5 % (21-51); MEAN CORPUSCULAR HEMOGLOBIN 34.3 PG (27.0-31.0); MEAN CORPUSCULAR HGB CONC 33.4 g/dL (33.0-36.5); MEAN CORPUSCULAR VOLUME 102.7 FL (78-98); MEAN PLATELET VOLUME 8.7 FL (7.4-10.4); MONOCYTES # (AUTO) 0.7 X10'3 (0-0.9); MONOCYTES % (AUTO) 11.9 % (2-12); NEUTROPHILS # (AUTO) 3.6 X10'3 (1.8-7.7); NEUTROPHILS % (AUTO) 59.5 % (42-75); PLATELET COUNT 337 X10'3 (140-440); RED CELL DISTRIBUTION WIDTH 13.7 % (11.5-14.5); WHITE BLOOD COUNT 6.1 X10'3 (4.5-11.0)
[2024-10-17 05:37] LABS: ALANINE AMINOTRANSFERASE 14 U/L (12-78); ALBUMIN 2.3 G/DL (3.4-5.0); ALBUMIN/GLOBULIN RATIO 0.5 (1.1-1.5); ALKALINE PHOSPHATASE 108 IU/L (46-116); ANION GAP 6 (8-16); ASPARTATE AMINO TRANSFERASE 16 U/L (10-37); BILIRUBIN,TOTAL 0.2 MG/DL (0.1-1.0); BLOOD UREA NITROGEN 3 MG/DL (7-18); BUN/CREATININE RATIO 4.1 (10.0-20.0); CHLORIDE 107 MMOL/L (99-107); CREATININE 0.74 MG/DL (0.60-1.10); GLUCOSE 104 MG/DL (70-104); MAGNESIUM 3.5 MG/DL (1.5-2.4); POTASSIUM 4.3 MMOL/L (3.5-5.1); SODIUM 142 MMOL/L (135-145); TOTAL CARBON DIOXIDE 29.1 MMOL/L (24-32); TOTAL PROTEIN 6.7 G/DL (6.4-8.2); eCRCL 139 ML/MIN; eGFR > 90 ML/MIN
[2024-10-17] MEDS ORDERED: HYDROcodone/acetaminophen 5mg/325mg tablet PO PRN (08:30)
[2024-10-17] MEDS: HYDROcodone/acetaminophen 10/325mg tab PO SCH (09:00)
[2024-10-17] MEDS: VANCOMYCIN LEVEL IV ONE (09:30)
[2024-10-17] MEDS: VANCOmycin 1250MG/NS 250ml Bag 250 ML IV SCH (17:54)
[2024-10-17] MEDS: lactose-reduced food (Ensure High Protein) 237ml bottle PO SCH (18:03)
[2024-10-18 04:38] LABS: BASOPHILS % (AUTO) 0.7 % (0-1); EOSINOPHILS # (AUTO) 0.3 X10'3 (0-0.9); EOSINOPHILS % (AUTO) 3.8 % (0-6); HEMATOCRIT 39.5 % (42.0-52.0); HEMOGLOBIN 13.3 g/dl (14.0-17.9); LYMPHOCYTES # (AUTO) 1.8 X10'3 (1.1-4.8); LYMPHOCYTES % (AUTO) 25.4 % (21-51); MEAN CORPUSCULAR HEMOGLOBIN 34.7 PG (27.0-31.0); MEAN CORPUSCULAR HGB CONC 33.7 g/dL (33.0-36.5); MEAN CORPUSCULAR VOLUME 102.8 FL (78-98); MEAN PLATELET VOLUME 8.5 FL (7.4-10.4); MONOCYTES # (AUTO) 0.6 X10'3 (0-0.9); MONOCYTES % (AUTO) 8.3 % (2-12); NEUTROPHILS # (AUTO) 4.4 X10'3 (1.8-7.7); NEUTROPHILS % (AUTO) 61.8 % (42-75); PLATELET COUNT 357 X10'3 (140-440); RED BLOOD COUNT 3.84 X10'6 (4.70-6.10); RED CELL DISTRIBUTION WIDTH 13.6 % (11.5-14.5); WHITE BLOOD COUNT 7.1 X10'3 (4.5-11.0)
[2024-10-18 05:00] LABS: ALANINE AMINOTRANSFERASE 9 U/L (12-78); ALBUMIN 2.7 G/DL (3.4-5.0); ALBUMIN/GLOBULIN RATIO 0.6 (1.1-1.5); ALKALINE PHOSPHATASE 115 IU/L (46-116); ANION GAP 8 (8-16); ASPARTATE AMINO TRANSFERASE 14 U/L (10-37); BILIRUBIN,TOTAL 0.2 MG/DL (0.1-1.0); BLOOD UREA NITROGEN 4 MG/DL (7-18); BUN/CREATININE RATIO 5.7 (10.0-20.0); CALCIUM 8.9 MG/DL (8.5-10.1); CHLORIDE 107 MMOL/L (99-107); GLUCOSE 94 MG/DL (70-104); MAGNESIUM 1.6 MG/DL (1.5-2.4); POTASSIUM 3.9 MMOL/L (3.5-5.1); SODIUM 143 MMOL/L (135-145); TOTAL CARBON DIOXIDE 27.7 MMOL/L (24-32); TOTAL PROTEIN 6.9 G/DL (6.4-8.2); eCRCL 147 ML/MIN; eGFR > 90 ML/MIN
[2024-10-18 06:00] VITALS: BP 129/83; PULSE 69; RESP 16; TEMP 98; O2SAT 94
[2024-10-18 10:00] VITALS: BP 140/89; PULSE 58; RESP 18; TEMP 97.2; O2SAT 96
[2024-10-18 12:22] VITALS: PULSE 61; RESP 17; O2SAT 98
[2024-10-18] MEDS: VANCOMYCIN LEVEL IV ONE (17:30)
[2024-10-18 18:00] VITALS: BP 158/95; PULSE 50; RESP 18; TEMP 97; O2SAT 99
[2024-10-18 20:00] VITALS: RESP 18; O2SAT 96
[2024-10-18 22:00] VITALS: BP 122/77; PULSE 58; RESP 16; TEMP 97.9; O2SAT 95
[2024-10-19] VITALS (8 sets, daily range): BP systolic 123–146; BP diastolic 75–93; PULSE 54–69; RESP 16–20; TEMP 97.4–98.7; O2SAT 93–98
[2024-10-19 04:27] LABS: BASOPHILS # (AUTO) 0.1 X10'3 (0-0.2); EOSINOPHILS # (AUTO) 0.3 X10'3 (0-0.9); HEMATOCRIT 36.4 % (42.0-52.0); HEMOGLOBIN 12.6 g/dl (14.0-17.9); LYMPHOCYTES # (AUTO) 1.8 X10'3 (1.1-4.8); LYMPHOCYTES % (AUTO) 25.7 % (21-51); MEAN CORPUSCULAR HEMOGLOBIN 35.1 PG (27.0-31.0); MEAN CORPUSCULAR HGB CONC 34.5 g/dL (33.0-36.5); MEAN CORPUSCULAR VOLUME 101.8 FL (78-98); MEAN PLATELET VOLUME 8.4 FL (7.4-10.4); MONOCYTES # (AUTO) 0.6 X10'3 (0-0.9); MONOCYTES % (AUTO) 8.8 % (2-12); NEUTROPHILS # (AUTO) 4.2 X10'3 (1.8-7.7); NEUTROPHILS % (AUTO) 60.5 % (42-75); PLATELET COUNT 318 X10'3 (140-440); RED BLOOD COUNT 3.58 X10'6 (4.70-6.10); RED CELL DISTRIBUTION WIDTH 13.4 % (11.5-14.5)
[2024-10-19 04:42] LABS: ALANINE AMINOTRANSFERASE 10 U/L (12-78); ALBUMIN 2.5 G/DL (3.4-5.0); ALBUMIN/GLOBULIN RATIO 0.6 (1.1-1.5); ALKALINE PHOSPHATASE 103 IU/L (46-116); ANION GAP 7 (8-16); ASPARTATE AMINO TRANSFERASE 12 U/L (10-37); BILIRUBIN,TOTAL 0.2 MG/DL (0.1-1.0); BLOOD UREA NITROGEN 3 MG/DL (7-18); BUN/CREATININE RATIO 4.2 (10.0-20.0); CALCIUM 8.9 MG/DL (8.5-10.1); CHLORIDE 107 MMOL/L (99-107); CREATININE 0.71 MG/DL (0.60-1.10); GLUCOSE 90 MG/DL (70-104); MAGNESIUM 2.1 MG/DL (1.5-2.4); POTASSIUM 4.1 MMOL/L (3.5-5.1); SODIUM 143 MMOL/L (135-145); TOTAL CARBON DIOXIDE 29.3 MMOL/L (24-32); TOTAL PROTEIN 6.5 G/DL (6.4-8.2); eCRCL 145 ML/MIN; eGFR > 90 ML/MIN
[2024-10-19] MEDS: morphine 2 MG/ML inj. syringe IV PRN (07:17)
[2024-10-19] MEDS: vancomycin/NS 1 GM ADD-VANTAGE 250 ML IV SCH (09:57)
[2024-10-19] MEDS: Dakins solution (1/4 strength) 473ml solution TP SCH (11:54)
[2024-10-19] MEDS: calcium carbonate 500mg tablet PO SCH (20:52)
[2024-10-20 05:12] LABS: BASOPHILS # (AUTO) 0.1 X10'3 (0-0.2); BASOPHILS % (AUTO) 1.2 % (0-1); EOSINOPHILS # (AUTO) 0.3 X10'3 (0-0.9); EOSINOPHILS % (AUTO) 3.6 % (0-6); HEMATOCRIT 36.4 % (42.0-52.0); HEMOGLOBIN 12.5 g/dl (14.0-17.9); LYMPHOCYTES # (AUTO) 2.1 X10'3 (1.1-4.8); LYMPHOCYTES % (AUTO) 26.6 % (21-51); MEAN CORPUSCULAR HEMOGLOBIN 34.9 PG (27.0-31.0); MEAN CORPUSCULAR HGB CONC 34.2 g/dL (33.0-36.5); MEAN CORPUSCULAR VOLUME 102.1 FL (78-98); MEAN PLATELET VOLUME 8.7 FL (7.4-10.4); MONOCYTES # (AUTO) 0.7 X10'3 (0-0.9); MONOCYTES % (AUTO) 9.2 % (2-12); NEUTROPHILS # (AUTO) 4.7 X10'3 (1.8-7.7); NEUTROPHILS % (AUTO) 59.4 % (42-75); PLATELET COUNT 339 X10'3 (140-440); RED BLOOD COUNT 3.57 X10'6 (4.70-6.10); RED CELL DISTRIBUTION WIDTH 13.2 % (11.5-14.5); WHITE BLOOD COUNT 7.9 X10'3 (4.5-11.0)
[2024-10-20 05:23] LABS: ALANINE AMINOTRANSFERASE 16 U/L (12-78); ALBUMIN 2.5 G/DL (3.4-5.0); ALBUMIN/GLOBULIN RATIO 0.7 (1.1-1.5); ALKALINE PHOSPHATASE 110 IU/L (46-116); ANION GAP 5 (8-16); ASPARTATE AMINO TRANSFERASE 14 U/L (10-37); BILIRUBIN,TOTAL 0.2 MG/DL (0.1-1.0); CALCIUM 8.2 MG/DL (8.5-10.1); CHLORIDE 107 MMOL/L (99-107); CREATININE 0.73 MG/DL (0.60-1.10); GLUCOSE 96 MG/DL (70-104); POTASSIUM 3.8 MMOL/L (3.5-5.1); SODIUM 141 MMOL/L (135-145); TOTAL CARBON DIOXIDE 29.2 MMOL/L (24-32); TOTAL PROTEIN 6.1 G/DL (6.4-8.2); eCRCL 141 ML/MIN; eGFR > 90 ML/MIN
[2024-10-20 05:25] LABS: BLOOD UREA NITROGEN 7 MG/DL (7-18); BUN/CREATININE RATIO 9.6 (10.0-20.0)
[2024-10-20 06:00] VITALS: BP 138/65; PULSE 66; RESP 16; TEMP 97.8; O2SAT 95
[2024-10-20] MEDS: cholecalciferol (vitamin D3) 1,000 unit (25mcg) tablet PO SCH (07:05)
[2024-10-20] MEDS: MULTIVIT-MIN/FERROUS GLUCONATE 9 MG/15 ML LIQUID PO SCH (07:05)
[2024-10-20] MEDS: ferrous sulfate 325mg tablet PO SCH (07:05)
[2024-10-20] MEDS: cyanocobalamin 500mcg tablet PO SCH (07:05)
[2024-10-20 07:19] VITALS: RESP 16; O2SAT 94
[2024-10-20] MEDS ORDERED: calcium carbonate 500mg tablet PO SCH (07:30)
[2024-10-20 09:46] VITALS: BP 121/72; PULSE 64; RESP 16; TEMP 98.4; O2SAT 95
[2024-10-20] MEDS: VANCOMYCIN LEVEL IV ONE (10:29)
[2024-10-20] MEDS ORDERED: SULF1TAB49 PO (17:21)
[2024-10-20 18:00] VITALS: BP 130/80; PULSE 58; RESP 18; TEMP 97.8; O2SAT 96
== END 2024-10-20 19:20 | disposition home health service (06) | DRG 721 ==
LOC: ER 14:41 → ED HOLD 19:22 → SUR 3N 10-16 20:02
PROVIDERS: ADMIT Internal Medicine Critical Care Medicine; ATTEND Nurse Practitioner Family
DX: T81.41XA Infection following a procedure, superficial incisional surgical site, initial encounter (principal); K31.6 Fistula of stomach and duodenum; E88.09 Other disorders of plasma-protein metabolism, not elsewhere classified; L03.311 Cellulitis of abdominal wall; I10 Essential (primary) hypertension; K21.9 Gastro-esophageal reflux disease without esophagitis; G89.29 Other chronic pain; M54.9 Dorsalgia, unspecified; D72.829 Elevated white blood cell count, unspecified; R91.8 Other nonspecific abnormal finding of lung field; J45.909 Unspecified asthma, uncomplicated; Y83.8 Other surgical procedures as the cause of abnormal reaction of the patient, or of later complication, without mention of misadventure at the time of the procedure; F41.9 Anxiety disorder, unspecified; F32.A Depression, unspecified; Z79.899 Other long term (current) drug therapy; Z85.828 Personal history of other malignant neoplasm of skin; I25.2 Old myocardial infarction; Y92.89 Other specified places as the place of occurrence of the external cause; Z87.11 Personal history of peptic ulcer disease; Z98.84 Bariatric surgery status
CPT/HCPCS: 36415; 74176; 80048; 80053; 80202; 83605; 83735; 84145; 85025; 87040; 87070; 87075; 87077; 87081; 87186; 94760; 99285; A6196; A6212; A6213; A6253; A6258; A6402; A6449; G0378; J1171; J1644; J2270; J2543; J3370; J7030; J7040; J7050; Q0163

== ENCOUNTER 2024-11-28 14:31 | Emergency (ER) | payer MEDICAID ==
[~2024-11-28] VITALS: Ht 185.4 cm; Wt 104.5 kg
[~2024-11-28 14:31] MED LIST changes: -AMOX-100 PO; -CARB200C7 PO; +CARB200T8 PO
[2024-11-28 16:25] LABS: BASOPHILS % (AUTO) 0.4 % (0-1); EOSINOPHILS # (AUTO) 0.2 X10'3 (0-0.9); EOSINOPHILS % (AUTO) 1.8 % (0-6); HEMATOCRIT 43.6 % (42.0-52.0); LYMPHOCYTES # (AUTO) 2.7 X10'3 (1.1-4.8); LYMPHOCYTES % (AUTO) 20.9 % (21-51); MEAN CORPUSCULAR HEMOGLOBIN 33.9 PG (27.0-31.0); MEAN CORPUSCULAR HGB CONC 34.5 g/dL (33.0-36.5); MEAN CORPUSCULAR VOLUME 98.1 FL (78-98); MEAN PLATELET VOLUME 8.7 FL (7.4-10.4); MONOCYTES # (AUTO) 1.1 X10'3 (0-0.9); MONOCYTES % (AUTO) 8.5 % (2-12); NEUTROPHILS # (AUTO) 8.8 X10'3 (1.8-7.7); NEUTROPHILS % (AUTO) 68.4 % (42-75); PLATELET COUNT 197 X10'3 (140-440); RED BLOOD COUNT 4.44 X10'6 (4.70-6.10); RED CELL DISTRIBUTION WIDTH 13.9 % (11.5-14.5); WHITE BLOOD COUNT 12.8 X10'3 (4.5-11.0)
[2024-11-28 16:39] VITALS: PULSE 60
[2024-11-28 16:58] LABS: ALANINE AMINOTRANSFERASE 26 U/L (12-78); ALBUMIN 3.5 G/DL (3.4-5.0); ALBUMIN/GLOBULIN RATIO 0.9 (1.1-1.5); ALKALINE PHOSPHATASE 121 IU/L (46-116); ANION GAP 9 (8-16); ASPARTATE AMINO TRANSFERASE 19 U/L (10-37); BILIRUBIN,TOTAL 0.3 MG/DL (0.1-1.0); BLOOD UREA NITROGEN 10 MG/DL (7-18); BUN/CREATININE RATIO 13.5 (10.0-20.0); CALCIUM 8.5 MG/DL (8.5-10.1); CHLORIDE 100 MMOL/L (99-107); CREATININE 0.74 MG/DL (0.60-1.10); GLUCOSE 92 MG/DL (70-104); LIPASE 26 U/L (16-77); POTASSIUM 4.3 MMOL/L (3.5-5.1); SODIUM 135 MMOL/L (135-145); TOTAL CARBON DIOXIDE 26.3 MMOL/L (24-32); TOTAL PROTEIN 7.4 G/DL (6.4-8.2); eCRCL 138 ML/MIN; eGFR > 90 ML/MIN
[2024-11-28 17:19] LABS: BILIRUBIN,URINE NEGATIVE (Neg); CLARITY,URINE CLEAR (Clear); COLOR,URINE YELLOW (Yellow); GLUCOSE, URINE NEGATIVE (Neg); KETONES,URINE NEGATIVE (Neg); LEUKOCYTE ESTERASE ,URINE NEGATIVE (Neg); NITRITES, URINE NEGATIVE (Neg); OCCULT BLOOD,URINE NEGATIVE (Neg); PROTEIN,URINE NEGATIVE (Neg); UROBILINOGEN,URINE 0.2 E.U/dL (0.2-1.0)
[2024-11-28 17:42] LABS: UA COLLECTION TYPE CLN CATCH MIDSTREAM
[2024-11-28] MEDS: HYDROcodone/acetaminophen 10/325mg tab PO ONE (17:57)
[2024-11-28] MEDS ORDERED: CEPH-585 PO (18:03)
[2024-11-28] MEDS: cephalexin 500mg capsule PO ONE (18:29)
[2024-11-28 18:33] VITALS: BP 125/90; RESP 16; TEMP 97.9; O2SAT 96
== END 2024-11-28 18:39 | disposition home or self-care (01) ==
LOC: ER 14:32
DX: L03.311 Cellulitis of abdominal wall (principal); Z98.890 Other specified postprocedural states
CPT/HCPCS: 36415; 80053; 81003; 83690; 85025; 99284

== ENCOUNTER 2025-01-02 20:35 | Inpatient (IN) | payer MEDICAID ==
[~2025-01-02] VITALS: Ht 185.4 cm; Wt 104.7 kg
[2025-01-02 21:20] LABS: BASOPHILS # (AUTO) 0.1 X10'3 (0-0.2); BASOPHILS % (AUTO) 0.8 % (0-1); EOSINOPHILS # (AUTO) 0.1 X10'3 (0-0.9); EOSINOPHILS % (AUTO) 0.8 % (0-6); HEMATOCRIT 37.5 % (42.0-52.0); HEMOGLOBIN 12.8 g/dl (14.0-17.9); LYMPHOCYTES # (AUTO) 1.7 X10'3 (1.1-4.8); LYMPHOCYTES % (AUTO) 15.9 % (21-51); MEAN CORPUSCULAR HGB CONC 34.1 g/dL (33.0-36.5); MEAN CORPUSCULAR VOLUME 99.6 FL (78-98); MEAN PLATELET VOLUME 8.5 FL (7.4-10.4); MONOCYTES # (AUTO) 0.9 X10'3 (0-0.9); MONOCYTES % (AUTO) 8.6 % (2-12); NEUTROPHILS # (AUTO) 8.1 X10'3 (1.8-7.7); NEUTROPHILS % (AUTO) 73.9 % (42-75); PLATELET COUNT 178 X10'3 (140-440); RED BLOOD COUNT 3.77 X10'6 (4.70-6.10); RED CELL DISTRIBUTION WIDTH 14.5 % (11.5-14.5); WHITE BLOOD COUNT 10.9 X10'3 (4.5-11.0)
[2025-01-02 21:38] LABS: ALANINE AMINOTRANSFERASE 33 U/L (12-78); ALBUMIN/GLOBULIN RATIO 0.8 (1.1-1.5); ALKALINE PHOSPHATASE 244 IU/L (46-116); ANION GAP 8 (8-16); ASPARTATE AMINO TRANSFERASE 29 U/L (10-37); BILIRUBIN,TOTAL 0.5 MG/DL (0.1-1.0); BLOOD UREA NITROGEN 4 MG/DL (7-18); BUN/CREATININE RATIO 4.8 (10.0-20.0); CALCIUM 8.4 MG/DL (8.5-10.1); CHLORIDE 104 MMOL/L (99-107); CREATININE 0.83 MG/DL (0.60-1.10); GLUCOSE 90 MG/DL (70-104); LIPASE 28 U/L (16-77); POTASSIUM 4.2 MMOL/L (3.5-5.1); SODIUM 137 MMOL/L (135-145); TOTAL CARBON DIOXIDE 25.5 MMOL/L (24-32); eCRCL 123 ML/MIN; eGFR > 90 ML/MIN
[2025-01-02 22:01] LABS: TOTAL CELLS COUNTED 100
[2025-01-03] VITALS (8 sets, daily range): BP systolic 123–152; BP diastolic 85–96; PULSE 70–79; RESP 13–18; TEMP 97.4–98.4; O2SAT 91–98
[2025-01-03] MEDS: morphine 4 MG/ML inj SYRINge IM ONE (01:11)
[2025-01-03] MEDS: normal saline 1000ml 1,000 ML IV ONE (02:30)
[2025-01-03] MEDS ORDERED: potassium Cl 20 mEq SR tablet PO PRN ×2 (02:35)
[2025-01-03] MEDS ORDERED: potassium Cl 40MEQ/1/2NS 520ml 520 ML IV PRN (02:35)
[2025-01-03] MEDS ORDERED: magnesium hydroxide 30ml (MOM) UD suspension PO PRN (02:35)
[2025-01-03] MEDS ORDERED: morphine 2 MG/ML inj. syringe IV PRN ×2 (02:35→19:45)
[2025-01-03] MEDS ORDERED: ondansetron/PF 4mg/2ml inj IV PRN ×2 (02:35→19:45)
[2025-01-03] MEDS ORDERED: mag hydrox/Alum hydrox/simeth 30ml oral suspension PO PRN (02:35)
[2025-01-03] MEDS ORDERED: acetaminophen 325mg tablet PO PRN (02:35)
[2025-01-03] MEDS ORDERED: magnesium sulf-water 4G/100mL 100 ML IV PRN (02:35)
[2025-01-03 03:00] LABS: HEMOGLOBIN A1C 5.7 % (4.5-6.2)
[2025-01-03 03:23] LABS: MAGNESIUM 1.1 MG/DL (1.5-2.4); POTASSIUM 3.9 MMOL/L (3.5-5.1)
[2025-01-03] MEDS: normal saline 1000ml 1,000 ML IV SCH (03:24)
[2025-01-03] MEDS: piperacillin/tazo 3.375gm/50ml 50 ML IV SCH (03:42)
[2025-01-03] MEDS: piperacillin/tazo 4.5gm/100ml 100 ML IV ONE (03:44)
[2025-01-03 04:03] LABS: BILIRUBIN,URINE NEGATIVE (Neg); CLARITY,URINE CLEAR (Clear); COLOR,URINE YELLOW (Yellow); GLUCOSE, URINE NEGATIVE (Neg); KETONES,URINE NEGATIVE (Neg); LEUKOCYTE ESTERASE ,URINE NEGATIVE (Neg); NITRITES, URINE NEGATIVE (Neg); OCCULT BLOOD,URINE NEGATIVE (Neg); PH,URINE 5.5 (4.8-8.0); PROTEIN,URINE NEGATIVE (Neg); UROBILINOGEN,URINE 0.2 E.U/dL (0.2-1.0)
[2025-01-03 04:09] LABS: UA COLLECTION TYPE CLN CATCH MIDSTREAM
[2025-01-03] MEDS: nicotine 21mg patch - 24 hr TD ONE (04:35)
[2025-01-03] MEDS: morphine 2 MG/ML inj. syringe IV PRN (04:35)
[2025-01-03 04:46] LABS: % IRON SATURATION 40 % (11-46); IRON 60 UG/DL (53-167); TOTAL IRON BINDING CAPACITY 150 UG/DL (259-388)
[2025-01-03 05:02] LABS: URINE AMPHETAMINE SCREEN NEGATIVE (Neg); URINE BARBITUATE SCREEN NEGATIVE (Neg); URINE BENZODIAZEPINES SCREEN NEGATIVE (Neg); URINE CANNABINOID SCREEN NEGATIVE (Neg); URINE COCAINE SCREEN NEGATIVE (Neg); URINE METHADONE SCREEN NEGATIVE (Neg); URINE OPIATE SCREEN POSITIVE (Neg); URINE PHENCYCLIDINE SCREEN NEGATIVE (Neg)
[2025-01-03] MEDS ORDERED: albuterol 2.5 MG/3 ML nebule NEB PRN (05:05)
[2025-01-03 05:07] LABS: CHOL/HDL RATIO 2.6 (0.00-4.99); CHOLESTEROL 195 MG/DL (0-200); HDL CHOLESTEROL 75 MG/DL (35-60); LDL CHOLESTEROL 83 MG/DL (50-100); TRIGLYCERIDES 97 MG/DL (20-135)
[2025-01-03 05:15] LABS: FERRITIN 4213 NG/ML (26-388)
[2025-01-03 05:16] LABS: ETHANOL < 10 MG/DL (<10)
[2025-01-03] MEDS: K and/or MAG REPLACEMENT MC SCH (07:54)
[2025-01-03] MEDS: pantoprazole 40mg Tablet.DR PO SCH (08:00)
[2025-01-03] MEDS: docusate sod 100mg capsule PO SCH (08:00)
[2025-01-03] MEDS: thiamine 100mg tablet PO SCH (08:00)
[2025-01-03] MEDS: heparin, porcine 5000 units/ml vial SQ SCH (08:00)
[2025-01-03] MEDS: potassium Cl 20 mEq SR tablet PO SCH (08:00)
[2025-01-03] MEDS: lactose-reduced food (Ensure Enlive) - 237ml bottle PO SCH (08:00)
[2025-01-03] MEDS ORDERED: morphine 2 MG/ML inj. syringe ONE ×2 (09:04→14:39)
[2025-01-03] MEDS: aripiprazole 5mg tablet PO SCH (09:34)
[2025-01-03] MEDS: cyanocobalamin 500mcg tablet PO SCH (09:35)
[2025-01-03] MEDS: diphenhydrAMINE 25mg capsule PO SCH (09:35)
[2025-01-03] MEDS: pregabalin 25mg capsule PO SCH (09:36)
[2025-01-03] MEDS: metoprolol succinate 25mg (24-HOUR) SR. Tablet PO SCH (09:36)
[2025-01-03] MEDS: cholecalciferol (vitamin D3) 1,000 unit (25mcg) tablet PO SCH (09:37)
[2025-01-03] MEDS: carBAMazepine 100mg chewable tablet PO SCH (09:54)
[2025-01-03] MEDS: HYDROcodone/acetaminophen 10/325mg tab PO PRN (11:40)
[2025-01-03] MEDS ORDERED: HYDROmorphone/PF 0.2 MG/ML SYRINGE IV PRN ×3 (14:45→19:45)
[2025-01-03] MEDS ORDERED: haloperidol 5mg tablet PO PRN (15:55)
[2025-01-03] MEDS ORDERED: dextrose 50%-water 50ml dispensing syringe IV PRN (15:55)
[2025-01-03] MEDS ORDERED: LORazepam 2 mg/ml vial IV PRN (15:55)
[2025-01-03] MEDS ORDERED: haloperidol lactate 5mg/ml inj IM PRN (15:55)
[2025-01-03] MEDS ORDERED: diazepam inj 5 MG/ML inj. IV PRN (16:01)
[2025-01-03] MEDS: HYDROmorphone inj. 0.5 MG/0.5 ML DISP.SYRIN IV PRN (16:11)
[2025-01-03] MEDS: magnesium Cl slow-release 64mg tablet PO PRN (19:18)
[2025-01-03] MEDS ORDERED: labetalol 20mg/4ml (5mg/ml) syringe IV PRN (19:45)
[2025-01-03] MEDS ORDERED: morphine 4 MG/ML inj SYRINge IV PRN (19:45)
[2025-01-03] MEDS ORDERED: hydrALAZINE 20mg/ml inj. IV PRN (19:45)
[2025-01-03] MEDS: ringers solution, lacted 1,000 ML IV SCH (19:45)
[2025-01-03] MEDS: thiamine 100mg/ml 2ml inj. IV SCH (20:24)
[2025-01-03] MEDS: duloxetine 30mg CAPSULE.DR PO SCH (20:24)
[2025-01-03] MEDS: cetirizine 10mg tablet PO SCH (20:25)
[2025-01-03] MEDS: prazosin 5mg capsule PO SCH (20:25)
[2025-01-03] MEDS: prazosin 1mg capsule PO SCH (20:26)
[2025-01-04] VITALS (19 sets, daily range): BP systolic 101–162; BP diastolic 65–104; PULSE 57–87; RESP 14–20; TEMP 97–98.7; O2SAT 91–100
[2025-01-04 04:55] LABS: BASOPHILS % (AUTO) 0.4 % (0-1); EOSINOPHILS # (AUTO) 0.1 X10'3 (0-0.9); EOSINOPHILS % (AUTO) 1.2 % (0-6); HEMATOCRIT 33.9 % (42.0-52.0); HEMOGLOBIN 11.7 g/dl (14.0-17.9); LYMPHOCYTES # (AUTO) 0.7 X10'3 (1.1-4.8); MEAN CORPUSCULAR HEMOGLOBIN 34.3 PG (27.0-31.0); MEAN CORPUSCULAR HGB CONC 34.6 g/dL (33.0-36.5); MEAN CORPUSCULAR VOLUME 99.2 FL (78-98); MEAN PLATELET VOLUME 9.1 FL (7.4-10.4); MONOCYTES # (AUTO) 0.8 X10'3 (0-0.9); MONOCYTES % (AUTO) 9.5 % (2-12); NEUTROPHILS % (AUTO) 80.9 % (42-75); PLATELET COUNT 162 X10'3 (140-440); RED BLOOD COUNT 3.42 X10'6 (4.70-6.10); RED CELL DISTRIBUTION WIDTH 14.3 % (11.5-14.5); WHITE BLOOD COUNT 8.6 X10'3 (4.5-11.0)
[2025-01-04 05:11] LABS: ALANINE AMINOTRANSFERASE 39 U/L (12-78); ALBUMIN 2.5 G/DL (3.4-5.0); ALBUMIN/GLOBULIN RATIO 0.7 (1.1-1.5); ALKALINE PHOSPHATASE 244 IU/L (46-116); ASPARTATE AMINO TRANSFERASE 42 U/L (10-37); BILIRUBIN,TOTAL 0.8 MG/DL (0.1-1.0); BLOOD UREA NITROGEN 3 MG/DL (7-18); BUN/CREATININE RATIO 4.4 (10.0-20.0); CALCIUM 8.1 MG/DL (8.5-10.1); CHOL/HDL RATIO 2.3 (0.00-4.99); CHOLESTEROL 182 MG/DL (0-200); CREATININE 0.68 MG/DL (0.60-1.10); GLUCOSE 103 MG/DL (70-104); HDL CHOLESTEROL 78 MG/DL (35-60); LDL CHOLESTEROL 70 MG/DL (50-100); MAGNESIUM 1.2 MG/DL (1.5-2.4); POTASSIUM 3.9 MMOL/L (3.5-5.1); SODIUM 139 MMOL/L (135-145); TOTAL CARBON DIOXIDE 29.5 MMOL/L (24-32); TOTAL PROTEIN 6.3 G/DL (6.4-8.2); TRIGLYCERIDES 121 MG/DL (20-135); eCRCL 150 ML/MIN; eGFR > 90 ML/MIN
[2025-01-04 05:22] LABS: ANION GAP 5 (8-16); CHLORIDE 105 MMOL/L (99-107)
[2025-01-04] MEDS: folic acid 1mg/0.2ml inj IV SCH (07:02)
[2025-01-04] MEDS: HYDROmorphone inj. 0.5 MG/0.5 ML DISP.SYRIN IV ONE (09:55)
[2025-01-04] MEDS: HYDROmorphone 1 mg/ml syringe IV PRN (11:46)
[2025-01-04] MEDS ORDERED: fentaNYL/PF 50MCG/1 ML 2ML syringe ONE (12:41)
[2025-01-04] MEDS ORDERED: midazolam 1 mg/ML 2ml injection ONE (12:41)
[2025-01-05 02:00] VITALS: BP 142/79; PULSE 78; RESP 15; TEMP 98.6; O2SAT 94
[2025-01-05 05:13] LABS: BASOPHILS # (AUTO) 0.1 X10'3 (0-0.2); BASOPHILS % (AUTO) 0.5 % (0-1); EOSINOPHILS # (AUTO) 0.2 X10'3 (0-0.9); EOSINOPHILS % (AUTO) 1.6 % (0-6); HEMATOCRIT 32.8 % (42.0-52.0); HEMOGLOBIN 11.2 g/dl (14.0-17.9); LYMPHOCYTES # (AUTO) 1.1 X10'3 (1.1-4.8); MEAN CORPUSCULAR HEMOGLOBIN 34.1 PG (27.0-31.0); MEAN CORPUSCULAR HGB CONC 34.1 g/dL (33.0-36.5); MEAN CORPUSCULAR VOLUME 100.2 FL (78-98); MEAN PLATELET VOLUME 9.2 FL (7.4-10.4); MONOCYTES # (AUTO) 1.4 X10'3 (0-0.9); MONOCYTES % (AUTO) 13.3 % (2-12); NEUTROPHILS # (AUTO) 7.5 X10'3 (1.8-7.7); NEUTROPHILS % (AUTO) 73.6 % (42-75); PLATELET COUNT 168 X10'3 (140-440); RED BLOOD COUNT 3.28 X10'6 (4.70-6.10); RED CELL DISTRIBUTION WIDTH 14.5 % (11.5-14.5); WHITE BLOOD COUNT 10.2 X10'3 (4.5-11.0)
[2025-01-05 05:42] LABS: ALANINE AMINOTRANSFERASE 27 U/L (12-78); ALBUMIN 2.4 G/DL (3.4-5.0); ALBUMIN/GLOBULIN RATIO 0.6 (1.1-1.5); ALKALINE PHOSPHATASE 212 IU/L (46-116); ANION GAP 6 (8-16); ASPARTATE AMINO TRANSFERASE 22 U/L (10-37); BILIRUBIN,TOTAL 0.7 MG/DL (0.1-1.0); BLOOD UREA NITROGEN 3 MG/DL (7-18); BUN/CREATININE RATIO 4.2 (10.0-20.0); CALCIUM 8.4 MG/DL (8.5-10.1); CHLORIDE 101 MMOL/L (99-107); CREATININE 0.72 MG/DL (0.60-1.10); GLUCOSE 87 MG/DL (70-104); MAGNESIUM 1.3 MG/DL (1.5-2.4); POTASSIUM 3.6 MMOL/L (3.5-5.1); SODIUM 136 MMOL/L (135-145); TOTAL CARBON DIOXIDE 28.9 MMOL/L (24-32); TOTAL PROTEIN 6.4 G/DL (6.4-8.2); eCRCL 142 ML/MIN; eGFR > 90 ML/MIN
[2025-01-05 06:00] VITALS: BP 145/75; PULSE 100; RESP 15; TEMP 97.3; O2SAT 97
[2025-01-05] MEDS ORDERED: LEVO750T68 PO (08:17)
[2025-01-05] MEDS ORDERED: DOCU100C40 PO (08:17)
[2025-01-05] MEDS ORDERED: METR-159 PO (08:17)
[2025-01-05 08:58] VITALS: RESP 14; O2SAT 95
[2025-01-05] MEDS: magnesium sulf-water 2g/50mL 50 ML IV PRN (10:39)
[2025-01-05 12:23] VITALS: RESP 16
[2025-01-05] MEDS ORDERED: LACT1CAP26 PO (14:30)
[2025-01-05] MEDS ORDERED: LORazepam 1 MG tablet PO PRN (15:55)
[2025-01-05] MEDS ORDERED: LORazepam 2 mg/ml vial IV PRN (15:55)
[2025-01-07] MEDS ORDERED: thiamine 100mg tablet PO SCH (08:00)
[2025-01-07] MEDS ORDERED: folic acid 1mg tablet PO SCH (08:00)
[2025-01-07] MEDS ORDERED: LORazepam 2 mg/ml vial IV PRN (15:55)
[2025-01-07] MEDS ORDERED: LORazepam 1 MG tablet PO PRN (15:55)
== END 2025-01-05 13:36 | disposition home health service (06) ==
LOC: ER 20:36 → ED HOLD 01-03 02:32 → SUR 3N 01-03 17:00
PROVIDERS: ADMIT Internal Medicine Critical Care Medicine; ATTEND Family Medicine
PROC: 0T9B30Z Drainage of Bladder with Drainage Device, Percutaneous Approach (ICD-10-PCS; principal; 2025-01-04)
DX: K80.00 Calculus of gallbladder with acute cholecystitis without obstruction (principal); K75.9 Inflammatory liver disease, unspecified; E88.09 Other disorders of plasma-protein metabolism, not elsewhere classified; N12 Tubulo-interstitial nephritis, not specified as acute or chronic; F17.210 Nicotine dependence, cigarettes, uncomplicated; G89.29 Other chronic pain; M54.9 Dorsalgia, unspecified; F10.90 Alcohol use, unspecified, uncomplicated; Y90.9 Presence of alcohol in blood, level not specified; F32.A Depression, unspecified; F41.9 Anxiety disorder, unspecified; I10 Essential (primary) hypertension; J45.909 Unspecified asthma, uncomplicated; D53.9 Nutritional anemia, unspecified; E83.42 Hypomagnesemia; R14.0 Abdominal distension (gaseous); F43.10 Post-traumatic stress disorder, unspecified; Z79.899 Other long term (current) drug therapy; Z82.49 Family history of ischemic heart disease and other diseases of the circulatory system; Z80.1 Family history of malignant neoplasm of trachea, bronchus and lung; Z80.8 Family history of malignant neoplasm of other organs or systems; Z98.84 Bariatric surgery status
CPT/HCPCS: 36415; 47490; 71045; 74176; 75989; 76700; 77012; 80053; 80061; 80305; 80320; 81003; 82607; 82728; 83036; 83540; 83550; 83690; 83735; 84132; 84145; 85007; 85025; 87070; 87077; 87081; 87186; 93005; 96361; 96365; 96366; 96367; 96372; 96375; 99152; 99153; 99285; A4421; A4615; A6258; C1729; C1769; G0378; J1171; J1644; J2250; J2270; J2543; J3010; J3411; J3490; J7030; Q0163

== ENCOUNTER 2025-01-05 21:14 | Emergency (ER) | payer MEDICAID ==
[~2025-01-05] VITALS: Ht 185.4 cm; Wt 110.9 kg
[~2025-01-05 21:14] MED LIST changes: +DOCU100C40 PO; +LACT1CAP26 PO; +LEVO750T68 PO; +METR-159 PO
[2025-01-05] MEDS ORDERED: iohexol 300mg/ml 100ml inj. ONE (22:01)
[2025-01-05 22:05] LABS: BASOPHILS % (AUTO) 0.3 % (0-1); EOSINOPHILS # (AUTO) 0.2 X10'3 (0-0.9); EOSINOPHILS % (AUTO) 1.4 % (0-6); HEMATOCRIT 34.4 % (42.0-52.0); HEMOGLOBIN 11.7 g/dl (14.0-17.9); LYMPHOCYTES # (AUTO) 1.2 X10'3 (1.1-4.8); LYMPHOCYTES % (AUTO) 10.8 % (21-51); MEAN CORPUSCULAR HEMOGLOBIN 33.6 PG (27.0-31.0); MEAN CORPUSCULAR HGB CONC 33.9 g/dL (33.0-36.5); MEAN PLATELET VOLUME 8.6 FL (7.4-10.4); MONOCYTES # (AUTO) 1.7 X10'3 (0-0.9); MONOCYTES % (AUTO) 15.6 % (2-12); NEUTROPHILS # (AUTO) 7.9 X10'3 (1.8-7.7); NEUTROPHILS % (AUTO) 71.9 % (42-75); PLATELET COUNT 224 X10'3 (140-440); RED BLOOD COUNT 3.47 X10'6 (4.70-6.10); RED CELL DISTRIBUTION WIDTH 14.7 % (11.5-14.5)
[2025-01-05 22:21] LABS: ALANINE AMINOTRANSFERASE 25 U/L (12-78); ALBUMIN 2.6 G/DL (3.4-5.0); ALBUMIN/GLOBULIN RATIO 0.5 (1.1-1.5); ALKALINE PHOSPHATASE 205 IU/L (46-116); ANION GAP 9 (8-16); ASPARTATE AMINO TRANSFERASE 17 U/L (10-37); BILIRUBIN,TOTAL 0.5 MG/DL (0.1-1.0); BLOOD UREA NITROGEN 4 MG/DL (7-18); BUN/CREATININE RATIO 5.6 (10.0-20.0); CALCIUM 8.6 MG/DL (8.5-10.1); CHLORIDE 103 MMOL/L (99-107); CREATININE 0.71 MG/DL (0.60-1.10); GLUCOSE 103 MG/DL (70-104); LIPASE 18 U/L (16-77); POTASSIUM 3.1 MMOL/L (3.5-5.1); SODIUM 140 MMOL/L (135-145); TOTAL CARBON DIOXIDE 28.4 MMOL/L (24-32); TOTAL PROTEIN 7.5 G/DL (6.4-8.2); eCRCL 144 ML/MIN; eGFR > 90 ML/MIN
[2025-01-05] MEDS: normal saline 1000ML IV soln IVB ONE (22:26)
[2025-01-05 23:17] LABS: NUCLEATED RED BLOOD CELLS 1 /100WBC (0-0); TOTAL CELLS COUNTED 100
[2025-01-05 23:18] LABS: ANISOCYTOSIS 1+; PLATELET ESTIMATE NORMAL
[2025-01-05] MEDS ORDERED: potassium 20mEq/D5LR 1000ml bag IV ONE (23:25)
[2025-01-05] MEDS ORDERED: magnesium sulf-water 2g/50mL 50 ML IV ONE (23:25)
[2025-01-05 23:33] LABS: MAGNESIUM 1.7 MG/DL (1.5-2.4)
[2025-01-05] MEDS ORDERED: potassium Cl 20mEq in D5-NS 1,000 ML IV SCH (23:35)
[2025-01-05] MEDS ORDERED: potassium CL 20mEq in D5-1/2NS 1,000 ML IV SCH (23:37)
[2025-01-05] MEDS: magnesium sulf-water 2g/50mL 50 ML IV ONE (23:58)
[2025-01-06] MEDS: potassium CL 10mEq/100ml bag 100 ML IV PRN (00:04)
[2025-01-06 00:19] LABS: BILIRUBIN,URINE NEGATIVE (Neg); CLARITY,URINE CLEAR (Clear); COLOR,URINE YELLOW (Yellow); GLUCOSE, URINE NEGATIVE (Neg); KETONES,URINE NEGATIVE (Neg); LEUKOCYTE ESTERASE ,URINE NEGATIVE (Neg); NITRITES, URINE NEGATIVE (Neg); OCCULT BLOOD,URINE NEGATIVE (Neg); PH,URINE 6.5 (4.8-8.0); PROTEIN,URINE NEGATIVE (Neg)
[2025-01-06 00:38] LABS: UA COLLECTION TYPE NON-SPECIFIED
[2025-01-06] MEDS: piperacillin/tazo 3.375gm/50ml 50 ML IV ONE (00:58)
[2025-01-06 01:04] VITALS: BP 130/85; PULSE 84; RESP 16; TEMP 98; O2SAT 98
== END 2025-01-06 01:08 | disposition home or self-care (01) ==
LOC: ER 21:15
DX: T85.518A Breakdown (mechanical) of other gastrointestinal prosthetic devices, implants and grafts, initial encounter (principal); R10.84 Generalized abdominal pain; E87.6 Hypokalemia; G89.29 Other chronic pain; M54.9 Dorsalgia, unspecified; F12.90 Cannabis use, unspecified, uncomplicated; Z88.5 Allergy status to narcotic agent; Z88.6 Allergy status to analgesic agent; Z79.899 Other long term (current) drug therapy; Z98.890 Other specified postprocedural states
CPT/HCPCS: 36415; 74177; 80053; 81003; 83690; 83735; 85007; 85025; 96361; 96365; 96375; 99285; J2543; J3480; J7030; Q9967; 96368

== ENCOUNTER 2025-05-23 13:26 | Inpatient (IN) | payer MEDICAID ==
[~2025-05-23] VITALS: Ht 185.4 cm; Wt 117.8 kg
[~2025-05-23 13:26] MED LIST changes: +CEPH-585 PO; -LEVO750T68 PO; -METR-159 PO
[2025-05-23 14:13] LABS: MEAN PLATELET VOLUME 8.6 FL (7.4-10.4); RED CELL DISTRIBUTION WIDTH 16.8 % (11.5-14.5)
[2025-05-23 14:42] LABS: CREATININE 0.65 MG/DL (0.60-1.10); PRO BRAIN NATRIURETIC PEPTIDE 125 PG/ML (0-125); TOTAL CARBON DIOXIDE 26.3 MMOL/L (24-32); eCRCL 157 ML/MIN; eGFR > 90 ML/MIN
--- NOTE | 2025-05-23 14:49 | RADIOLOGY REPORT ---
CHEST RADIOGRAPH Indication: CP Technique: Single frontal view of the chest was obtained COMPARISON: DI CHEST,SINGLE VIEW on DOS: 01/03/25, DI CHEST,SINGLE VIEW on DOS: 10/04/24, DI CHEST,SIN GLE VIEW on DOS: 08/03/24, DI CHEST,SINGLE VIEW on DOS: 08/02/24, DI CHEST,SINGLE VIEW on DOS: FINDINGS: Lines and Tubes: None Lungs: Clear Pleura: No effusion. No pneumothorax. Cardiomediastinal contours: Unremarkable Bones: Unremarkable IMPRESSION: No acute disease.
--- NOTE | 2025-05-23 16:27 | ELECTROCARDIOGRAPH REPORT ---
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 Claude Boles Measurements Intervals [place] Rate: 68 P: 51 DC: 154 QRS: 57 QRSD: 96 T: 8 QT: 396 QTc: 422 Interpretive Statements Sinus rhythm RSR' in V1 or V2, probably normal variant Borderline repolarization abnormality Baseline wander in lead(s) I,II,aVR,aVF,V1,V2 Electronically Signed On 05-23-2025 22:10:[address] Claude Boles Please click the below link to view image of tracing.
[2025-05-23] MEDS ORDERED: potassium CL 10mEq/100ml bag 100 ML IV SCH ×2 (17:40)
--- NOTE | 2025-05-23 17:41 | Physician Documentation ---
History of Present Illness General Chief Complaint: Extremity Swelling Stated Complaint: LEG SWELLING Time Seen by MD: 17:07 Primary Medical Doctor: Lindy Kelly Mode of Arrival: POV, Ambulatory History of Present Illness Initial Comments The patient is a 49-year-old male with a chief complaint of bilateral leg swelling over the past week. He has a history of hypokalemia and hypomagnesemia. He has been keeping his legs elevated and they improved somewhat by the morning although they are still somewhat swollen (my shoes do not fit even in the morning) they get worse throughout the day. They are painful. Medication Reconciliation Allergies: Coded Allergies: aspirin (Unverified Allergy, Unknown, ULCER HX, 01/05/25) ibuprofen (Unverified Allergy, Unknown, ULCER HX, 01/05/25) Scheduled Aripiprazole (Aripiprazole), 1 TAB PO DAILY, (Reported) Carbamazepine (Carbamazepine), 1 TAB PO Q12H, (Reported) Cephalexin*Monohydrate* (Keflex*), 1 CAP PO QID, (Reported) Cetirizine HCl (Cetirizine HCl), 1 TAB PO HS, (Reported) Cholecalciferol (Vitamin D3) (Vitamin D3), 1 CAP PO DAILY, (Reported) Diphenhydramine Hcl (Benadryl), 1 CAP PO BID, (Reported) Docusate Sodium (Docusate Sodium), 1 CAP PO BID, (Reported) Duloxetine HCl (Duloxetine HCl), 2 CAP PO HS, (Reported) Lactobacillus Rhamnosus (Culturelle), 1 CAP PO DAILY, (Reported) Metoprolol Succinate (Metoprolol Succinate), 1 TAB PO QAM, (Reported) Pantoprazole Sodium (Pantoprazole Sodium), 1 TAB PO BID, (Reported) Potassium Chloride (Potassium Chloride), 1 TAB PO DAILY, (Reported) Prazosin Hcl (Prazosin Hcl), 3 CAP PO HS, (Reported) Pregabalin* (Lyrica*), 2 CAP PO BID, (Reported) Thiamine Mononitrate (Vitamin B-1), 1 TAB PO DAILY, (Reported) Scheduled PRN Hydrocodone Bit/Acetaminophen (Hydrocodon-Acetaminophn 10-325 tablet), 1 TAB PO QID PRN for pain, (Reported) albuterol inhaler (Pro-Air Inhaler), 2 PUFFS INH Q4HPRN PRN for wheezing, (Reported) Discontinued Medications Cephalexin*Monohydrate* (Keflex*), 1 CAP PO QID Discontinued Reason: patient no longer taking Docusate Sodium (Docusate Sodium), 100 MG PO BID Discontinued Reason: patient no longer taking Lactobacillus Rhamnosus (Culturelle), 1 CAP PO DAILY Discontinued Reason: patient no longer taking Past Medical History Past Medical History: Chronic Back Pain Past Surgical History: abdominal surgery, orthopedic surgeries Smoking: Cigarettes Alcohol Use: None Drug Use: marijuana Lives In: Home Physical Exam Physical Exam Vital Signs: Temperature: 98.3, Source: Temporal, Heart Rate: 70, Respiratory Rate: 16, BP: 150/100, Pulse Oximetry: 100, Weight: 115.800 Oxygen Flow Rate: 0 Progress Results/Orders Results/Orders Orders - LIVIER WINTER MD Chest,Single View (05/23/25 13:58) Monitor (05/23/25 13:58) Saline Lock (05/23/25 13:58) Oxygen (05/23/25 13:58) Electrocardiogram (05/23/25 13:58) Completed Orders - LIVIER WINTER MD Chest,Single View (05/23/25 13:58) Cbc/Diff (05/23/25 13:58) BMP (05/23/25 13:58) PBNP (05/23/25 13:58) Electrocardiogram (05/23/25 13:58) Hs Troponin I W Calculations (05/23/25 13:58) Hs Troponin I W Calculations (05/23/25 15:58) Hs Troponin I W Calculations (05/23/25 16:58) MG (05/23/25 13:52) CMP (05/23/25 17:18) D-Dimer (05/23/25 17:18) C-Reactive Protein (05/23/25 17:18) ESR (05/23/25 17:18) LA (05/23/25 17:18) Procalcitonin (05/23/25 17:18) Potassium Cl 10meq/100ml Bag (Potassium (05/23/25 17:40) Potassium Cl 10meq/100ml Bag (Potassium (05/23/25 17:40) Magnesium Oxide Tablet (Mag-Ox 400mg Tab (05/23/25 17:40) Potassium Bicarb 20meq Eff Tab (Effer-K (05/23/25 17:43) Ketorolac Trometh 30mg/Ml Vial (Toradol (05/23/25 17:50) Hydrocodone/Apap 10/325 ([place] 10/325mg (05/23/25 18:00) Lactic,2hr (05/23/25 18:51) Hgb A1c (05/23/25 13:52) Vital Signs 05/23/25 05/23/25 05/23/25 05/23/25 13:55 17:24 17:30 18:04 Temp 98.3 Pulse 69 70 Resp 16 16 16 16 B/P (MAP) 143/93 150/100 (117) Pulse Ox 98 100 O2 Flow Rate 0 0 05/23/25 05/23/25 05/23/25 05/23/25 18:09 19:00 19:12 20:00 Pulse 68 69 76 Resp 16 12 16 13 B/P (MAP) 152/95 (114) 150/91 (110) 151/93 (112) Pulse Ox 99 95 96 O2 Flow Rate 0 05/23/25 05/23/25 05/23/25 21:00 22:00 23:00 Pulse 70 73 112 Resp 14 20 16 B/P (MAP) 147/88 (107) 159/104 (122) 150/89 (109) Pulse Ox 94 93 93 Laboratory Tests Test 05/23/25 13:52 05/23/25 14:02 05/23/25 16:02 05/23/25 17:02 White Blood Count 6.3 Red Blood Count 3.29 L Hemoglobin 12.5 L Hematocrit 35.9 L Mean Corpuscular Volume 109.1 H Mean Corpuscular Hemoglobin 38.1 H Mean Corpuscular Hemoglobin Concent 34.9 Red Cell Distribution Width 16.8 H Platelet Count 179 Mean Platelet Volume 8.6 Neutrophils (%) (Auto) 61.8 Lymphocytes (%) (Auto) 26.2 Monocytes (%) (Auto) 9.9 Eosinophils (%) (Auto) 1.1 Basophils (%) (Auto) 1.0 Neutrophils # (Auto) 3.9 Lymphocytes # (Auto) 1.6 Monocytes # (Auto) 0.6 Eosinophils # (Auto) 0.1 Basophils # (Auto) 0.1 CBC Comment Erythrocyte Sedimentation Rate 2 D-Dimer 0.43 D-Dimer Comment Sodium Level 144 142 Potassium Level 2.9 *L 3.0 *L Chloride Level 107 106 Carbon Dioxide Level 26.3 25.8 Anion Gap 11 10 Blood Urea Nitrogen 4 L 4 L Creatinine 0.65 0.71 Estimated GFR/1.73 m2 > 90 > 90 BUN/Creatinine Ratio 6.2 L 5.6 L Glucose Level 94 97 Hemoglobin A1c 5.3 Calcium Level 7.9 L 7.9 L Magnesium Level 1.3 L Troponin I High Sensitivity 7 8 8 Pro-B-Type Natriuretic Peptide 125 Albumin 3.1 L 3.3 L Procalcitonin 0.09 Chemistry Comments Lactic Acid Level 2.1 H Troponin I High Sens Percent Delta 14 0 Troponin I Hi Sens Absolute Change 1 0 Total Bilirubin 0.6 Aspartate Amino Transf (AST/SGOT) 46 H Alanine Aminotransferase (ALT/SGPT) 33 Alkaline Phosphatase 155 H C-Reactive Protein 0.26 Total Protein 6.4 Globulin 3.1 Albumin/Globulin Ratio 1.1 Test 05/23/25 19:04 05/23/25 20:47 Lactic Acid Level 1.8 Magnesium Level 1.3 L Thyroid Stimulating Hormone (TSH) 1.28 Microbiology Date/Time Source Procedure Growth Status 05/23/25 19:09 Blood Arm Left Blood Culture - Preliminary NEGATIVE (LESS THAN 24 HOURS) Resulted EKG/XRAY/CT/US/VASC/MRI Ultrasound : Impression Bilateral lower extremity venous duplex Clinical History: Pain and swelling in bilateral legs for 2 weeks Comparison: None Technique: Duplex Doppler evaluation of the deep venous systems of both lower extremities from the common femoral veins to the popliteal veins including color Doppler and spectral/pulsed waveform analysis was performed. Findings: RIGHT SIDE: The common femoral vein demonstrates appropriate compressibility and waveform v ariability. There is compressibility/patency of the great saphenous vein at the proximal thigh. The femoral vein demonstrates appropriate compressibility and waveform variability. The deep femoral vein demonstrates appropriate compressibility and waveform variability. The popliteal vein demonstrates appropriate compressibility and waveform variability. There is normal compressibility at the tibioperoneal trunk. LEFT SIDE: The common femoral vein demonstrates appropriate compressibility and waveform variability. There is compressibility/patency of the great saphenous vein at the proximal thigh. The femoral vein demonstrates appropriate compressibility and waveform variability. The deep femoral vein demonstrates appropriate compressibility and waveform variability. The popliteal vein demonstrates appropriate compressibility and waveform variability. There is normal compressibility at the tibioperoneal trunk. OTHER: Subcutaneous edema overlying bilateral popliteal veins. Impression: 1. No right or left femoropopliteal venous thrombosis. Departure Disposition: 09 ADMITTED INPATIENT Admission Level of Care: Med/Surg Impression: Primary Impression: Hypokalemia Additional Impressions: Hypomagnesemia Swelling of both lower extremities Referrals: NO PRIMARY CARE PROVIDER (PCP) Signature Scribe Signature: . Attestation: I have reviewed this case [id number] with the PA, including physical examination, laboratory and imaging results as appropriate. The patient was evaluated [id number] and I agree with the PA's notes. I agree with the findings, evaluation and disposition. LIVIER WNITER MD May 23, 2025 17:41 GEENA HURST MD May 23, 2025 22:40
[2025-05-23 17:44] LABS: CREATININE 0.71 MG/DL (0.60-1.10); TOTAL CARBON DIOXIDE 25.8 MMOL/L (24-32); eCRCL 144 ML/MIN; eGFR > 90 ML/MIN
[2025-05-23] MEDS: ketorolac trometh 30MG/ML vial 30 MG/ML VIAL IV ONE (18:00)
[2025-05-23] MEDS: HYDROcodone/acetaminophen 10/325mg tab PO ONE (18:04)
[2025-05-23] MEDS: POTASSIUM BICARB 20meq eff tab 20 MEQ TABLET.EFF PO STA (18:05)
[2025-05-23] MEDS: potassium Cl 20 mEq SR tablet PO STA (20:50)
[2025-05-23] MEDS: nicotine 21mg patch - 24 hr TD ONE (22:02)
--- NOTE | 2025-05-23 22:23 | VASCULAR REPORT ---
Bilateral lower extremity venous duplex Clinical History: Pain and swelling in bilateral legs for 2 weeks Comparison: None Technique: Duplex Doppler evaluation of the deep venous systems of both lower extremities from the common femora l veins to the popliteal veins including color Doppler and spectral/pulsed waveform analysis was perf ormed. Findings: RIGHT SIDE: The common femoral vein demonstrates appropriate compressibility and waveform variability. There is compressibility/patency of the great saphenous vein at the proximal thigh. The femoral vein demonstrates appropriate compressibility and waveform variability. The deep femoral vein demonstrates appropriate compressibility and waveform variability. The popliteal vein demonstrates appropriate compressibility and waveform variability. There is normal compressibility at the tibioperoneal trunk. LEFT SIDE: The common femoral vein demonstrates appropriate compressibility and waveform variability. There is compressibility/patency of the great saphenous vein at the proximal thigh. The femoral vein demonstrates appropriate compressibility and waveform variability. The deep femoral vein demonstrates appropriate compressibility and waveform variability. The popliteal vein demonstrates appropriate compressibility and waveform variability. There is normal compressibility at the tibioperoneal trunk. OTHER: Subcutaneous edema overlying bilateral popliteal veins. Impression: 1. No right or left femoropopliteal venous thrombosis.
[2025-05-23] MEDS ORDERED: magnesium sulf-water 4G/100mL 100 ML IV PRN (23:20)
[2025-05-23] MEDS: PERFLUTREN PROTEIN-A MICROSPHR (Optison) 0.22 MG/ML 3ML VIAL IV ONE (23:20)
[2025-05-23] MEDS ORDERED: magnesium sulf-water 2g/50mL 50 ML IV PRN (23:20)
[2025-05-23] MEDS ORDERED: ondansetron/PF 4mg/2ml inj IV PRN (23:20)
[2025-05-23] MEDS ORDERED: magnesium Cl slow-release 64mg tablet PO PRN (23:20)
[2025-05-23] MEDS ORDERED: potassium Cl 40MEQ/1/2NS 520ml 520 ML IV PRN (23:20)
[2025-05-24] VITALS (9 sets, daily range): BP systolic 125–147; BP diastolic 85–97; PULSE 63–97; RESP 10–18; TEMP 97.4–98.4; O2SAT 92–98
[2025-05-24] MEDS ORDERED: haloperidol lactate 5mg/ml inj IM PRN (00:10)
--- NOTE | 2025-05-24 00:21 | HISTORY AND PHYSICAL-Residence ---
History & Physical Providers to CC Resident Creating Document: JORDAN HARRISON RES CC: CHON CHARLTON MD ~ History of Present Illness Primary Medical Doctor: Lindy Kelly Reason for Admit\Complaint: Lower extremity swelling from two weeks History of Present Illness 49-year-old male with history of hypertension, asthma, alcohol abuse, tobacco use disorder, s/p Jazzmine-en-Y gastric bypass surgery presented to the ER with chief complaints of bilateral lower extremity swelling for about two weeks. Initially started in the left lower extremity and within a week it progressed to right lower extremity and progressive from ankle up to above knees. Denies any scrotal swelling. Patient also said since the swelling he got increased pins and needle sensation. He already had past history of peripheral neuropathy for which he had she is using duloxetine and pregabalin. He denies erythema, fever, injury to the lower extremities. He does endorse exertional dyspnea and orthopnea. Denies oliguria Allergies: Coded Allergies: aspirin (Unverified Allergy, Unknown, ULCER HX, 01/05/25) ibuprofen (Unverified Allergy, Unknown, ULCER HX, 01/05/25) Home Medications Home Medications Active Keflex* (Cephalexin HCl) 500 Mg Capsule 1 Cap PO QID Culturelle (Lactobacillus Rhamnosus) 10 Billion Cell Capsule 1 Cap PO DAILY 30 Days Docusate Sodium 100 Mg Caps 100 Mg PO BID 30 Days Reported Carbamazepine 200 Mg Tablet 1 Tab PO Q12H Pantoprazole Sodium 40 Mg Tablet. 1 Tab PO BID Vitamin D3 (Cholecalciferol (Vitamin D3)) 50 Mcg (2000 Unit) Capsule 1 Cap PO DAILY 30 Days Benadryl (Diphenhydramine Hcl) 25 Mg Capsule 1 Cap PO BID 30 Days Hydrocodon-Acetaminophn 10-325 tablet (Acetaminophen/Hydrocodone Bitart) 10mg- 325mg Tablet 1 Tab PO QID PRN Pro-Air Inhaler (Albuterol) 8.5 Gm Inhaler 2 Puffs INH Q4HPRN PRN 30 Days Prazosin Hcl 2 Mg Capsule 3 Cap PO HS 30 Days Duloxetine HCl 60 Mg Capsule. 2 Cap PO HS 30 Days Aripiprazole 5 Mg Tablet 1 Tab PO DAILY 30 Days Lyrica* (Pregabalin) 25 Mg Capsule 2 Cap PO BID Vitamin B-1 (Thiamine Mononitrate) 100 Mg Tablet 1 Tab PO DAILY 30 Days Metoprolol Succinate 50 Mg Tab.sr.24h 1 Tab PO QAM Potassium Chloride 20 Meq Tablet.er 1 Tab PO DAILY Cetirizine HCl 10 Mg Tablet 1 Tab PO HS Past Medical History Past Medical History #Hypertension #Alcohol use disorder #Tobacco use disorde #Anxiety and depression #PTSD #Neuropathic pain #Asthma #History of multiple lung nodules #Macrocytic anemia #Hypomagnesemia #Lumbar herniated disc-chronic back pain #acute calculous cholecystitis- s/p cholecystostomy tube placed and removed Past Surgical History Surgical History Comment July 30 2024: Patient had emergency repair of perforated gastroduodenal ulcer, pyloromyotomy, closure of duodenal stump and retrocolic gastrojejunostomy followed by washout the next day; a BRANDON drain was placed in between the duodenal stump and gastroduodenal staple line. August 01 2024: Patient had Jazzmine-en-Y gastric bypass surgery September 22 2024: Pigtail was replaced by the IR team October 05 2024: Patient underwent exploratory laparotomy with severe lysis ideations, and there was a prior suspicion of gastro- cutaneous fistula however on laparotomy, the stomach had no leakage with methylene blue and the BRANDON drain was worn out and not in the stomach, another BRANDON drain was replaced to drain out fluid Wedge resection of right lower lobe lung nodule Vasectomy #s/p percutaneous cholecystostomy on 01/04/25 #s/p repair of perforated gastroduodenal ulcer, pyloromyotomy, closure of duodenal stump and retrocolic gastrojejunostomy #s/p Jazzmine-en-Y gastric bypass surgery-08/01/2024 #s/p exploratory laparotomy with severe lysis of adhesions #c/b postop incisional abdominal wound cellulitis Family History Family History: Blood clots MOTHER, Age: 73 FH: heart attack Sister, FH: lung cancer Maternal grandmother Paternal grandmother FH: skin cancer FATHER, Age: 77 Past Social History Social History Comment Patient lives in house with his and caregiver Smokes about a pack of cigarettes a day, for almost 30 years. Thirty pack years Alcohol: Last drink yesterdat, drinking 3-4 shots of whiskey a day Illicit use of drugs: Admits to using Marijuana daily Smoking: Cigarettes Alcohol Use: None Drug Use: Marijuana Lives In: Home ROS ROS ROS Constitutional: No fever, dizziness, weakness. no change in appetite/weight HEENT: No blurring of the vision, No sore throat, epistaxis, tinnitus Cardiovascular: No chest pain/discomfort, palpitations, syncope. No pedal edema Respiratory: positive for sob, no cough,, hemoptysis Gastrointestinal: No abdominal pain, nausea, vomiting. positive for diarrhea, no constipation, melena. Genitourinary: No frquency, urgency, incontinence, nocturia. No dysuria, hematuria Musculoskeletal: No arthralgia, myalgia Endocrine: yes for fatigue, no polydipsia, polyuria. No heat or cold intolerance Neurologic: No headache, vertigo. No weakness, yes for numbness or tingling of extremities Psychiatric: No hallucinations/delusions, no anhedonia, no suicidal ideation Hematologic: No bleeding or bruises Reviewed in full. All negative except for pertinent positives in HPI Exam Vitals: Vital Signs Date Time Temp Pulse Resp B/P (MAP) Pulse Ox O2 Delivery O2 Flow Rate FiO2 05/23/25 23:00 112 16 150/89 (109) 93 05/23/25 18:09 0 05/23/25 13:55 98.3 General: General: Pleasant adult male, obese, AAO x4, not in apparent distress Head: Normocephalic with an atraumatic Eyes: Pupils- 3mm, reacting to light, conjunctiva- anicteric Nose and throat: No polyps, septum- normal, no mucosal ulcers Neck: Supple, no lymphadenopathy, no carotid bruit Respiratory: No use of accessory muscles of respiration, Bilateral normal vesiscular breath sounds heard. No wheeze, rhochi or creps Cardiac: S1-S2 heard, rythm regular, no gallop/murmur Abdomen: non distended, no tenderness, no organomegaly, bowel sounds- heard, multiple scars present over the abdomen Extremities: no clubbing,, no deformities, 2+ pitting pedal edema present, hyperesthesia of both lower extremities, minor petechiae present over both foot Skin: warm and dry, no rash, no purpura Neuro: No focal deficit, gross cranial nerve exam- normal Diagnostic Data Last Recorded Lab Results: 05/23/25 1352 05/23/25 1702 Diagnostic Data: Laboratory Tests Test 05/23/25 13:52 D-Dimer 0.43 MG/L FEU (0-0.50) D-Dimer Comment Advance Care Planning Advanced Care plannin - 30 Minutes (Code status is discussed with him, he opted for full code) Additional Plan 49-year-old male with history of hypertension, asthma, alcohol abuse, tobacco use disorder, s/p Jazzmine-en-Y gastric bypass surgery presented to the ER with chief complaints of bilateral lower extremity swelling for about two weeks Bilateral lower extremity swelling- DVT ruled out Possible cirrhosis versus heart failure -presented with bilateral lower extremity swelling with exacerbation of neuropathic symptoms including pins and needle sensation -proBNP is 125, albumin 3.3, AST/ALT/ALP 46/33/155 -as proBNP is negative- heart failure would be unlikely however patient does have symptom of orthopnea -chest x-ray no pulmonary edema no pulmonary congestion -us done in 12/2024- dose echotexture of the liver suggesting of cirrhosis -suspect lower extremity swelling secondary to cirrhosis -follow up on 2D echo, ultrasound liver -started on IV Lasix 20 mg once daily and Aldactone 25 mg once daily -monitor strict input output chart and daily weight monitoring -adjust the dose of Lasix and Aldactone based on input output response, and potassium level Hypokalemia Hypomagnesemia -potassium 3. Magnesium 1.3 -suspect likely secondary to chronic diarrhea -EKG no U-waves, monitor on telemetry for arrythmias -follow up on spot urine k/cr, and VBG -potassium replacement protocol -IV magnesium 2 g one dose now followed by magnesium replacement protocol Hypertension -continue home medication of metoprolol Macrocytic anemia -MCV 109 with hemoglobin of 12.5 -B12 done in January 04, 2025-664 -suspect macrocytosis secondary to alcohol use -continue folate Alcohol use disorder -he drinks 3-4 shots of whiskey a day -at present, no symptoms of alcohol withdrawal -started on moderate alcohol withdrawal protocol and thiamine and folate -SS consulted Tobacco use disorder -discussed with patient regarding the harmful effects of smoking including but not limited to lung cancer, bladder cancer. Patient understood and said he will try to quit smoking -he agreed for nicotine patch, started on 7 mg transdermal patch once daily #s/p percutaneous cholecystostomy on 01/04/25 #s/p repair of perforated gastroduodenal ulcer, pyloromyotomy, closure of duodenal stump and retrocolic gastrojejunostomy #s/p Jazzmine-en-Y gastric bypass surgery-08/01/2024 #s/p exploratory laparotomy with severe lysis of adhesions #c/b postop incisional abdominal wound cellulitis Anxiety and depression PTSD Neuropathic pain -continue aripiprazole -continue prazosin -continue duloxetine and carbamazepine Asthma History of multiple lung nodules -not in exacerbation -albuterol nebulization p.r.n. Code Status: Full code Line/tube: piv DVT prophylaxis: lovenox Nutrition: heart healthy diet PT: no Prognosis: Guarded Disposition: Continue care in ortho floor Jordan Harrison MD IM PGY-3 resident Attending Physician Attestation Evaluation via HIPAA compliant A/V device. I discussed the case with the resident and I agree with the resident's documentation. 49-year-old man with a history of morbid obesity s/p Jazzmine-en-Y gastric bypass, alcohol abuse, and US echotexture consistent with replacement of normal hepatic parenchyma who now presents with lower extremity edema. The treatment plan includes: Evaluation for hepatic steatosis/MASLD. Echocardiogram to exclude a cardiac etiology for the patient's lower extremity edema. Furosemide and spironolactone diuretic therapy. Time spent 50 minutes. Date of Service: May 24, 2025 Billing Provider: CHON CHARLTON MD, HARIVARSHA, GET May 24, 2025 00:21 CHON CHARLTON MD May 24, 2025 03:12
[2025-05-24] MEDS ORDERED: HYDROcodone/acetaminophen 5mg/325mg tablet PO PRN (00:40)
[2025-05-24] MEDS ORDERED: albuterol 2.5 MG/3 ML nebule NEB PRN (00:45)
[2025-05-24] MEDS: magnesium sulf-water 2g/50mL 50 ML IV ONE (01:05)
[2025-05-24] MEDS: HYDROcodone/acetaminophen 10/325mg tab PO PRN (01:07)
[2025-05-24 01:15] LABS: CREATININE,URINE RANDOM 259.0 MG/DL; TOTAL PROTEIN,URINE RANDOM 30.4 MG/DL; UA UREA RANDOM 462.0 MG/DL
[2025-05-24 01:18] LABS: URINE AMPHETAMINE SCREEN NEGATIVE (Neg); URINE BARBITUATE SCREEN NEGATIVE (Neg); URINE BENZODIAZEPINES SCREEN NEGATIVE (Neg); URINE CANNABINOID SCREEN NEGATIVE (Neg); URINE COCAINE SCREEN NEGATIVE (Neg); URINE METHADONE SCREEN NEGATIVE (Neg); URINE OPIATE SCREEN POSITIVE (Neg); URINE PHENCYCLIDINE SCREEN NEGATIVE (Neg)
[2025-05-24 01:23] LABS: LEUKOCYTE ESTERASE ,URINE NEGATIVE (Neg); NITRITES, URINE NEGATIVE (Neg); OCCULT BLOOD,URINE NEGATIVE (Neg)
[2025-05-24 01:27] LABS: UA COLLECTION TYPE NON-SPECIFIED
[2025-05-24 05:59] LABS: MEAN PLATELET VOLUME 9.4 FL (7.4-10.4); RED CELL DISTRIBUTION WIDTH 17.2 % (11.5-14.5)
[2025-05-24 06:16] LABS: CHOL/HDL RATIO 2.2 (0.00-4.99); CREATININE 0.81 MG/DL (0.60-1.10); ETHANOL < 10 MG/DL (<10); LDL CHOLESTEROL 77 MG/DL (50-100); PHOSPHORUS 4.5 MG/DL (2.3-4.5); TOTAL CARBON DIOXIDE 29.1 MMOL/L (24-32); eCRCL 126 ML/MIN; eGFR > 90 ML/MIN
[2025-05-24] MEDS ORDERED: LACT1CAP26 PO (07:16)
[2025-05-24] MEDS ORDERED: DOCU100C40 PO (07:17)
[2025-05-24] MEDS ORDERED: CEPH-585 PO (07:19)
[2025-05-24] MEDS: thiamine 100mg/ml 2ml inj. IV SCH (07:28)
[2025-05-24] MEDS: folic acid 1mg/0.2ml inj IV SCH (07:28)
[2025-05-24] MEDS: potassium Cl 20 mEq SR tablet PO PRN (07:29)
[2025-05-24 07:30] LABS: PLATELET ESTIMATE NORMAL
[2025-05-24] MEDS: carBAMazepine 100mg chewable tablet PO SCH ×2 (07:30→20:06)
[2025-05-24] MEDS: pantoprazole 40mg Tablet.DR PO SCH (07:31)
[2025-05-24] MEDS: multivitamins, therapeutics tablet PO SCH (07:31)
[2025-05-24] MEDS: nicotine 7mg patch - 24hr TD SCH (07:32)
[2025-05-24] MEDS: metoprolol succinate 25mg (24-HOUR) SR. Tablet PO SCH (07:32)
[2025-05-24] MEDS: enoxaparin 40mg/0.4ml syringe SUBCUT SCH (07:35)
[2025-05-24] MEDS: docusate sod 100mg capsule PO SCH (07:37)
[2025-05-24] MEDS: K and/or MAG REPLACEMENT MC SCH (07:49)
[2025-05-24] MEDS ORDERED: carBAMazepine 100mg chewable tablet PO SCH (08:00)
[2025-05-24] MEDS: nicotine 21mg patch - 24 hr TD SCH (09:40)
--- NOTE | 2025-05-24 10:55 | RADIOLOGY REPORT ---
INDICATION: CIRRHOSIS TECHNIQUE: Multiple real-time sonographic images of the abdomen were obtained. COMPARISON: CT CT ABDOMEN PELVIS W/ IV CONTRAST on DOS: 01/05/25, US ULTRASOUND OF ABDOMEN on DOS: 12/16 07/12, CT CT ABDOMEN PELVIS on DOS: 01/03/25, CT CT ABDOMEN PELVIS on DOS: 10/15/24, CT CT ABDOMEN PELV IS on DOS: 10/04/24 FINDINGS: The liver is heterogeneous in echogenicity. The liver measures 16cm. No intrahepatic bilia ry ductal dilatation is noted. Gallbladder not seen. Common bile duct measures 6 mm. The right kidney measures 12cm. No hydronephrosis. The pancreas is not well visualized due to obscuration from bowel gas. The visualized portions of the IVC and aorta are grossly unremarkable. IMPRESSION: Hepatic steatosis
--- NOTE | 2025-05-24 12:47 | PROGRESS NOTE- Residence ---
Progress Note - Resident Providers to CC Resident Creating Document: RBAD CRAIG, RES ~ Antibiotic Timeout Antibiotic Ordered?: No Subjective The patient has been evaluated at the bedside. The patient reports tingling sensation in bilateral lower extremities until the level of the knees. Objective Vital Signs Date Time Temp Pulse Resp B/P (MAP) Pulse Ox O2 Delivery O2 Flow Rate FiO2 05/24/25 11:33 72 16 93 Room Air* 0 21 05/24/25 10:00 98.1 138/87 (104) Physical exam: General: Well alert, well oriented, not confused, not agitated, not in acute distress, well cooperated during the physical. HEENT: Conjunctive are pink, sclerae clear, no icterus, pupil is equal in both sides, reactive to light, no ear discharge, no pharyngeal erythema or an edema. Neck: Supple, no JVD, no lymphadenopathy and thyromegaly. Chest: Equal air entry on both lungs, no additional sounds no rhonchi no wheezing at the moment. Cardiovascular: S1-S2 regular sinus rhythm and, regular rate, no gallops, no rubs, no murmurs Abdomen: No visible peristalsis, Bowel sounds present on auscultation, soft, nontender, no guarding, no rigidity, presence of multiple scars from previous surgeries. Extremities: No obvious deformities, 1+ pedal edema bilaterally, warm to the touch, capillary refill intact, peripheral pulsations are intact on both sides. Central Nervous System: No focal neurological deficits, no motor or sensory weakness in all 4 extremities, could move all 4 extremities, 2+ deep tendon reflexes, negative Babinski. Diminished sensation in sock pattern bilateral lower extremities. Musculoskeletal: No joint swelling, deformities, inflammations, and no scoliosis and back tenderness Skin: Warm and dry. Result Diagram: 05/24/25 0528 05/24/25 0946 Coagulation Studies Laboratory Tests Test 05/23/25 13:52 D-Dimer 0.43 MG/L FEU (0-0.50) D-Dimer Comment Assessment Assessment 49 years old male patient came to the hospital with chief complaint of bilateral lower extremity swelling for approximately two weeks. Plan Plan Hepatic steatosis: Liver cirrhosis unable to exclude: Bilateral lower extremity swelling- DVT ruled out -presented with bilateral lower extremity swelling with exacerbation of neuropathic symptoms including pins and needle sensation -proBNP is 125, albumin 3.3, AST/ALT/ALP 46/33/155 -as proBNP is negative- heart failure would be unlikely however patient does have symptom of orthopnea -chest x-ray no pulmonary edema no pulmonary congestion -us done in 12/2024- dose echotexture of the liver suggesting of cirrhosis -suspect lower extremity swelling secondary to cirrhosis -follow up on 2D echo, ultrasound liver -started on IV Lasix 20 mg once daily and Aldactone 25 mg once daily -monitor strict input output chart and daily weight monitoring -adjust the dose of Lasix and Aldactone based on input output response, and potassium level. 05/24/2025: Suarez: 0.18. 18% predicted probability of fibrotic nausea. Fibrotic SUAREZ can not be ruled out. Liver ultrasound: Hepatic steatosis Continue spironolactone 25 mg daily. Hypokalemia-improving: Hypomagnesemia -potassium 3. Magnesium 1.3 -suspect likely secondary to chronic diarrhea -EKG no U-waves, monitor on telemetry for arrythmias -follow up on spot urine k/cr, and VBG -potassium replacement protocol -IV magnesium 2 g one dose now followed by magnesium replacement protocol 05/24/2025: Spot urine potassium/creatinine ratio: 0.15. Continue replacement as per protocol. The patient is currently on spironolactone 25 mg daily. Hypertension -continue home medication of metoprolol 50 mg daily Macrocytic anemia -MCV 109 with hemoglobin of 12.5 -B12 done in January 04, 2025-664 -suspect macrocytosis secondary to alcohol use -continue folate. 05/24/2025: Continue folic acid 1 mg daily. Alcohol use disorder -he drinks 3-4 shots of whiskey a day -at present, no symptoms of alcohol withdrawal -started on moderate alcohol withdrawal protocol and thiamine and folate -SS consulted. 05/24/2025: Continue alcohol withdrawal protocol. The patient declined services. Strong recommendation to stop alcohol consumption came into the patient. Detailed explanation of complications related to alcohol consumption given to the patient who stated that he will stop alcohol consumption. Tobacco use disorder -discussed with patient regarding the harmful effects of smoking including but not limited to lung cancer, bladder cancer. Patient understood and said he will try to quit smoking -he agreed for nicotine patch, started on 7 mg transdermal patch once daily. 05/24/2025: Nicotine patch 25 mg daily. Anxiety and depression PTSD Neuropathic pain -continue aripiprazole -continue prazosin -continue duloxetine and carbamazepine Asthma History of multiple lung nodules -not in exacerbation -albuterol nebulization p.r.n. 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 Anticipated discharge tomorrow. Brad Baugh Internal Medicine Resident [facility] Date of Service: May 24, 2025 Billing Provider: SHAUN MCDONALD MD Common Visit Codes: [id number] INP/OBS CARE(HIGH) BRAD CRAIG, RES May 24, 2025 12:46 SHAUN MCDONALD MD May 24, 2025 19:48
--- NOTE | 2025-05-24 18:39 | CARDIOLOGY REPORT ---
APPROVED REPORT EXAM: Comprehensive 2D, Doppler, and color-flow Echocardiogram. 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 151.4 cm/s AoV VTI 28.7 cm AO Peak GR. 9.2 mmHg AO Mean GR. 5 mmHg LVOT VTI 26.91 cm LVOT Peak Ottoniel. 122.5 cm/s NONA(VTI)/BSA 3.51 cm2/m2 NONA (VTI) 3.51 cm2 Mitral Valve MV E Velocity 116.7 cm/s MV Peak Gr. 8 mmHg MV DECEL TIME 240 ms MV A Velocity 73.7 cm/s MV PHT 68 ms E/A Ratio 1.6 MVA (PHT) 3.24 cm2 MV ZXht179.8 cm/s TDI Lateral E' P. V12.21 cm/s E/Lateral E' 9.6 Tricuspid Valve TR P. Velocity 183 cm/s RAP ESTIMATE 10 mmHg TR Peak Gr. 13 mmHg RVSP 23 mmHg LEFT VENTRICLE Normal LV size and wall thickness. Overall systolic function is normal. LVEF is 65%. RIGHT VENTRICLE RV is normal size and function. ATRIA The left atrium size is normal. AORTIC VALVE Trileaflet AV appears mildly sclerotic without stenosis. No insufficiency. MITRAL VALVE Mitral valve leaflets are mildly thickened without stenosis. Trace regurgitation. TRICUSPID VALVE The tricuspid valve is normal in structure with trace regurgitation. PULMONIC VALVE Pulmonic valve is grossly normal in structure with physiologic insufficiency. GREAT VESSELS The aortic root is normal in size. The ascending aorta is normal in size. IVC is normal in size. PERICARDIUM Normal pericardium. No effusion. Other Information Study Quality: Adequate Conclusion Normal LV size and wall thickness. Overall systolic function is normal. LVEF is 65%. RV is normal size and function. The left atrium size is normal. Trileaflet AV appears mildly sclerotic without stenosis. No insufficiency. Mitral valve leaflets are mildly thickened without stenosis. Trace regurgitation. The tricuspid valve is normal in structure with trace regurgitation. Normal pericardium. No effusion.
[2025-05-24] MEDS: duloxetine 30mg CAPSULE.DR PO SCH (20:05)
[2025-05-25 05:04] LABS: MEAN PLATELET VOLUME 9.3 FL (7.4-10.4); RED CELL DISTRIBUTION WIDTH 16.6 % (11.5-14.5)
[2025-05-25 05:11] LABS: INR 1.0 INR
[2025-05-25 05:15] LABS: CREATININE 0.70 MG/DL (0.60-1.10); PHOSPHORUS 4.3 MG/DL (2.3-4.5); TOTAL CARBON DIOXIDE 28.3 MMOL/L (24-32); eCRCL 146 ML/MIN; eGFR > 90 ML/MIN
[2025-05-25 06:00] VITALS: BP 142/90; PULSE 67; RESP 16; TEMP 97.8; O2SAT 93
[2025-05-25 06:56] VITALS: BP 142/90; PULSE 67; RESP 16; TEMP 97.8; O2SAT 93
[2025-05-25] MEDS: potassium Cl 20 mEq SR tablet PO PRN (07:47)
[2025-05-25 08:07] VITALS: PULSE 68; RESP 16; O2SAT 92
[2025-05-25 10:00] VITALS: BP 145/96; PULSE 69; RESP 15; TEMP 97.3; O2SAT 96
[2025-05-25] MEDS ORDERED: SPIR25TA5 PO (11:15)
[2025-05-25] MEDS ORDERED: duloxetine 20mg capsule.DR PO SCH (11:54)
[2025-05-25 12:49] VITALS: RESP 16
--- NOTE | 2025-05-25 14:28 | DISCHARGE SUMMARY-Residence ---
Discharge Summary Providers to CC Resident Creating Document: YEMIYEMI OROZCOERVIN Alston, RES ~ Discharge Summary Admission Diagnosis: HYPOKALEMIA Hospital Course DATE OF ADMISSION: 05/23/2025 DATE OF DISCHARGE: 05/25/2025 Discharge Diagnosis\Comment: Hepatic steatosis Liver cirrhosis unable to exclude Bilateral lower extremity swelling- DVT ruled out Hypokalemia-improving Hypomagnesemia Hypertension Macrocytic anemia Alcohol use disorder Tobacco use disorder Anxiety and depression PTSD Neuropathic pain Asthma Operations\Procedures: None Consultants: None Complications: None Condition on DC: Stable New Medications: Spironolactone (Spironolactone) 25 Mg Tablet 25 MG PO DAILY for 30 Days, #30 TAB Continued Medications: albuterol inhaler (Pro-Air Inhaler) 8.5 Gm Inhaler 2 PUFFS INH Q4HPRN PRN for wheezing for 30 Days, #18 GM Aripiprazole (Aripiprazole) 5 Mg Tablet 1 TAB PO DAILY for 30 Days, #30 TAB 0 Refills Carbamazepine (Carbamazepine) 200 Mg Tablet 1 TAB PO Q12H Cetirizine HCl (Cetirizine HCl) 10 Mg Tablet 1 TAB PO HS Cholecalciferol (Vitamin D3) (Vitamin D3) 50 Mcg (2000 Unit) Capsule 1 CAP PO DAILY for 30 Days, #30 CAP 0 Refills Duloxetine HCl (Duloxetine HCl) 60 Mg Capsule.dr 2 CAP PO HS for 30 Days, #30 CAP 0 Refills Lactobacillus Rhamnosus (Culturelle) 10 Billion Cell Capsule 1 CAP PO DAILY for 30 Days, #30 CAP 0 Refills Metoprolol Succinate (Metoprolol Succinate) 50 Mg Tab.sr.24h 1 TAB PO QAM Pantoprazole Sodium (Pantoprazole Sodium) 40 Mg Tablet.dr 1 TAB PO BID Prazosin Hcl (Prazosin Hcl) 2 Mg Capsule 3 CAP PO HS for 30 Days, #30 CAP 0 Refills Pregabalin* (Lyrica*) 25 Mg Capsule 2 CAP PO BID, CAP Thiamine Mononitrate (Vitamin B-1) 100 Mg Tablet 1 TAB PO DAILY for 30 Days, #30 TAB 0 Refills Discontinued Medications: Cephalexin*Monohydrate* (Keflex*) 500 Mg Capsule 1 CAP PO QID, #28 CAP Diphenhydramine Hcl (Benadryl) 25 Mg Capsule 1 CAP PO BID for 30 Days, #30 CAP 0 Refills Docusate Sodium (Docusate Sodium) 100 Mg Caps 1 CAP PO BID, #60 CAP Hydrocodone Bit/Acetaminophen (Hydrocodon-Acetaminophn 10-325 tablet) 10mg- 325mg Tablet 1 TAB PO QID PRN for pain Potassium Chloride (Potassium Chloride) 20 Meq Tablet.er 1 TAB PO DAILY Discharge Summary: HPI: 49-year-old male with history of hypertension, asthma, alcohol abuse, tobacco use disorder, s/p Jazzmine-en-Y gastric bypass surgery presented to the ER with chief complaints of bilateral lower extremity swelling for about two weeks. Initially started in the left lower extremity and within a week it progressed to right lower extremity and progressive from ankle up to above knees. Denies any scrotal swelling. Patient also said since the swelling he got increased pins and needle sensation. He already had past history of peripheral neuropathy for which he had she is using duloxetine and pregabalin. He denies erythema, fever, injury to the lower extremities. He does endorse exertional dyspnea and orthopnea. Denies oliguria Hospital course: 49-year-old male patient came to the hospital with chief complaint of bilateral lower extremity swelling. The patient was admitted due to the possibility of liver cirrhosis and heart failure. Echocardiogram was obtained and showed normal left ventricular ejection fraction with a an LVEF of 65%. RVSP of 23 mmHg. Initially the patient was started on Lasix and spironolactone due to suspicion of heart failure, up in the next day due to hypokalemia Lasix was discontinued and spironolactone was continued. Initial lab work showed AST elevated which result upon the following CMP. Abdominal ultrasound was obtained which confirmed the presence of hepatic steatosis, the patient was explained in detail about the steps of developing liver cirrhosis in the setting of alcohol consumption. The patient admitted to be drinking 3-4 cups of whiskey every day. The patient appeared to understand the risks and benefits of stopping alcohol. vp celebrity services and substance use navigator were consulted due to alcohol consumption. The patient declined all the services. The patient remained hemodynamically stable, upon the following day bilateral lower extremity impro maryann. Also due to the concern of DVT vascular ultrasound was obtained with negative result. The patient remained hemodynamically stable. The patient will be discharged home. Discharge course: The patient remained hemodynamically stable. The patient will be discharged with the following instructions: Call 911 or come to the emergency department if severe chest pain, shortness of breath, palpitations, leg swelling is evidenced. Continue your home medication. Take spirinolactone 25 mg daily. Follow up with your primary care physician within 2 weeks. Strong recommendation to stops drinking alcohol. Physical exam: General: Well alert, well oriented, not confused, not agitated, not in acute distress, well cooperated during the physical. HEENT: Conjunctive are pink, sclerae clear, no icterus, pupil is equal in both sides, reactive to light, no ear discharge, no pharyngeal erythema or an edema. Neck: Supple, no JVD, no lymphadenopathy and thyromegaly. Chest: Equal air entry on both lungs, no additional sounds no rhonchi no wheezing at the moment. Cardiovascular: S1-S2 regular sinus rhythm and, regular rate, no gallops, no rubs, no murmurs Abdomen: No visible peristalsis, Bowel sounds present on auscultation, soft, non tender, no guarding, no rigidity Extremities: No obvious deformities, no pitting edema bilaterally, capillary refill intact, peripheral pulsations are intact on both sides Central Nervous System: No focal neurological deficits, no motor or sensory weakness in all 4 extremities, could move all 4 extremities, 2+ deep tendon reflexes, negative Babinski. Musculoskeletal: No joint swelling, deformities, inflammations, and no scoliosis and back tenderness Skin: Warm and dry. Vital Signs Date Time Temp Pulse Resp B/P (MAP) Pulse Ox O2 Delivery O2 Flow Rate FiO2 05/25/25 12:49 16 05/25/25 10:00 97.3 69 145/96 (112) 96 Room Air 05/25/25 08:07 0 21 Laboratory Tests Test 05/23/25 16:02 05/23/25 17:02 05/23/25 19:04 05/23/25 20:47 Troponin I High Sensitivity 8 ng/L 8 ng/L Troponin I High Sens Percent Delta 14 % 0 % Troponin I Hi Sens Absolute Change 1 ng/L 0 ng/L Sodium Level 142 MMOL/L Potassium Level 3.0 MMOL/L Chloride Level 106 MMOL/L Carbon Dioxide Level 25.8 MMOL/L Anion Gap 10 Blood Urea Nitrogen 4 MG/DL Creatinine 0.71 MG/DL Estimated GFR/1.73 m2 > 90 ML/MIN BUN/Creatinine Ratio 5.6 Glucose Level 97 MG/DL Calcium Level 7.9 MG/DL Total Bilirubin 0.6 MG/DL Aspartate Amino Transf (AST/SGOT) 46 U/L Alanine Aminotransferase (ALT/SGPT) 33 U/L Alkaline Phosphatase 155 IU/L C-Reactive Protein 0.26 MG/DL Total Protein 6.4 G/DL Albumin 3.3 G/DL Globulin 3.1 G/DL Albumin/Globulin Ratio 1.1 Chemistry Comments Lactic Acid Level 1.8 MMOL/L Magnesium Level 1.3 MG/DL Thyroid Stimulating Hormone (TSH) 1.28 ulU/ml Test 05/24/25 01:00 05/24/25 05:28 05/24/25 09:46 05/25/25 04:49 Urine Specimen Description Non-specified Urine Color Yellow Urine Clarity Clear Urine pH 6.0 Urine Specific Allison 1.025 Urine Protein Negative mg/dl Urine Glucose (UA) Negative mg/dl Urine Ketones Trace mg/dl Urine Occult Blood Negative Urine Nitrite Negative Urine Bilirubin Negative Urine Urobilinogen 0.2 E.U/dL Urine Leukocyte Esterase Negative Urine Culture Indicated Not ind Volume Urine Centrifuged 10 ml Urine Random Creatinine 259.0 MG/DL Urine Random Total Protein 30.4 MG/DL Urine Random Sodium 68 MEQ/L Urine Random Potassium 39 MEQ/L Urine Random Urea 462.0 MG/DL Urine Comment Urine Opiates Screen Positive Urine Methadone Screen Negative Urine Fentanyl Screen Negative Urine Barbiturates Screen Negative Urine Phencyclidine Screen Negative Urine Amphetamines Screen Negative Urine Benzodiazepines Screen Negative Urine Cocaine Screen Negative Urine Cannabinoids Screen Negative Drug Screen Comment White Blood Count 5.7 X10'3 6.5 X10'3 Red Blood Count 3.29 X10'6 3.13 X10'6 Hemoglobin 12.4 g/dl 12.0 g/dl Hematocrit 36.3 % 34.8 % Mean Corpuscular Volume 110.6 FL 111.1 FL Mean Corpuscular Hemoglobin 37.7 PG 38.4 PG Mean Corpuscular Hemoglobin Concent 34.1 g/dL 34.5 g/dL Red Cell Distribution Width 17.2 % 16.6 % Platelet Count 140 X10'3 151 X10'3 Mean Platelet Volume 9.4 FL 9.3 FL Neutrophils (%) (Auto) 53.9 % 59.8 % Lymphocytes (%) (Auto) 32.7 % 26.5 % Monocytes (%) (Auto) 10.2 % 10.1 % Eosinophils (%) (Auto) 1.8 % 2.2 % Basophils (%) (Auto) 1.4 % 1.4 % Neutrophils # (Auto) 3.1 X10'3 3.9 X10'3 Lymphocytes # (Auto) 1.9 X10'3 1.7 X10'3 Monocytes # (Auto) 0.6 X10'3 0.7 X10'3 Eosinophils # (Auto) 0.1 X10'3 0.1 X10'3 Basophils # (Auto) 0.1 X10'3 0.1 X10'3 CBC Comment Platelet Estimate Normal Red Blood Cell Morphology Perf Basophilic Stippling Anisocytosis 1+ Macrocytosis 2+ Stomatocytes 1+ Sodium Level 141 MMOL/L 139 MMOL/L Potassium Level 2.7 MMOL/L 3.2 MMOL/L 3.4 MMOL/L Chloride Level 103 MMOL/L 104 MMOL/L Carbon Dioxide Level 29.1 MMOL/L 28.3 MMOL/L Anion Gap 9 7 Blood Urea Nitrogen 4 MG/DL 6 MG/DL Creatinine 0.81 MG/DL 0.70 MG/DL Estimated GFR/1.73 m2 > 90 ML/MIN > 90 ML/MIN BUN/Creatinine Ratio 4.9 8.6 Glucose Level 99 MG/DL 108 MG/DL Calcium Level 7.5 MG/DL 7.8 MG/DL Phosphorus Level 4.5 MG/DL 4.3 MG/DL Magnesium Level 1.6 MG/DL 1.7 MG/DL Total Bilirubin 0.4 MG/DL 0.4 MG/DL Aspartate Amino Transf (AST/SGOT) 37 U/L 33 U/L Alanine Aminotransferase (ALT/SGPT) 29 U/L 26 U/L Alkaline Phosphatase 155 IU/L 139 IU/L Total Protein 6.4 G/DL 6.0 G/DL Albumin 3.2 G/DL 2.9 G/DL Globulin 3.2 G/DL 3.1 G/DL Albumin/Globulin Ratio 1.0 0.9 Triglycerides Level 81 MG/DL Cholesterol Level 181 MG/DL LDL Cholesterol 77 MG/DL HDL Cholesterol 83 MG/DL Cholesterol/HDL Ratio 2.2 Chemistry Comments Carbamazepine (Tegretol) Level 9.3 UG/ML Ethyl Alcohol Level < 10 MG/DL Prothrombin Time 10.0 SECONDS INR International Normalized Ratio 1.0 INR Coagulation Comments Imaging: Abdominal ultrasound: Hepatic steatosis Echocardiogram: Normal LV size and wall thickness. Overall systolic function is normal. LVEF is 65%. RV is normal size and function. The left atrium size is normal. Trileaflet AV appears mildly sclerotic without stenosis. No insufficiency. Mitral valve leaflets are mildly thickened without stenosis. Trace regurgitation. The tricuspid valve is normal in structure with trace regurgitation. Normal pericardium. No effusion. Vascular ultrasound: No right or left femoropopliteal venous thrombosis. Chest x-ray: No acute disease. *Problems/Diagnosis: (1) Alcohol use disorder Status: Acute (2) Fatty liver Status: Acute (3) Hypokalemia Status: Acute (4) Hypomagnesemia Status: Acute Total Time Spent on D/C: > 30 Minutes Date of Service: May 25, 2025 Billing Provider: SHAUN MCDONALD MD Common Visit Codes: 13362-MBM/OBS DISCH DAY >30min ERVIN CRAIG, RES May 25, 2025 14:09 SHAUN MCDONALD MD May 25, 2025 18:51
== END 2025-05-25 12:50 | disposition home or self-care (01) | DRG 351 ==
LOC: ER 13:26 → ED HOLD 23:26 → ORTHO 4S 05-24 00:25
PROVIDERS: ADMIT Internal Medicine Critical Care Medicine; ATTEND Internal Medicine
DX: M79.89 Other specified soft tissue disorders (principal); K74.60 Unspecified cirrhosis of liver; D53.9 Nutritional anemia, unspecified; K76.0 Fatty (change of) liver, not elsewhere classified; E83.42 Hypomagnesemia; E87.6 Hypokalemia; G89.29 Other chronic pain; M54.9 Dorsalgia, unspecified; J45.909 Unspecified asthma, uncomplicated; I10 Essential (primary) hypertension; F32.A Depression, unspecified; F41.9 Anxiety disorder, unspecified; F43.10 Post-traumatic stress disorder, unspecified; F10.90 Alcohol use, unspecified, uncomplicated; Y90.9 Presence of alcohol in blood, level not specified; E66.01 Morbid (severe) obesity due to excess calories; Z79.899 Other long term (current) drug therapy; Z87.891 Personal history of nicotine dependence; Z98.84 Bariatric surgery status; Z88.8 Allergy status to other drugs, medicaments and biological substances; Z68.34 Body mass index [BMI] 34.0-34.9, adult
CPT/HCPCS: 36415; 71045; 76700; 80048; 80053; 80061; 80156; 80305; 80320; 81003; 82570; 83036; 83605; 83735; 83880; 84100; 84132; 84133; 84145; 84156; 84300; 84443; 84484; 84540; 85008; 85025; 85379; 85610; 85651; 86140; 87040; 87081; 93005; 93306; 93970; 94760; 99285; G0378; J1650; J1938; J3411; J3490

== ENCOUNTER 2025-07-04 14:35 | Emergency (ER) | payer MEDICAID ==
[~2025-07-04] VITALS: Ht 175.3 cm; Wt 107.2 kg
[~2025-07-04 14:35] MED LIST changes: -CEPH-585 PO; -DIPH25CA83 PO; -DOCU100C40 PO; -HYDR-3972 PO; -POTA-366 PO; +SPIR25TA5 PO
--- NOTE | 2025-07-04 15:05 | Physician Documentation ---
History of Present Illness Chief Complaint: Abdominal Pain w/vomiting Stated Complaint: ABD PAIN Primary Medical Doctor: Lindy Kelly HPI 49-year-old male that presents to the emergency department for evaluation of increased abdominal pain discomfort times 3-4 weeks. Patient has a history of significant complicated hernias that he has had resected a few times. Patient reports that he is a patient of Dr. Peterson here in the hospital. Reports that he met with Dr. Peterson yesterday for his symptoms Dr. Madrid suggested that he reports to the emergency department for evaluation and imaging to rule out anything acute. Patient reports that he has vomiting every couple of days intermittent nausea he has diarrhea but that his diarrhea is baseline for him and a overall general feeling of discomfort in his abdomen. History as above. Patient reports that he continues to pass gas and that has GI problems all started with a perforated ulcer. He does believe he is taking medications for his stomach but denies taking any NSAIDs. States the pain has been going on for a month that has well as the nausea. Nausea that is so much worse today he decided to come in. He continues to drink alcohol. Patient endorses an abdominal hernia for which he is working with Dr. Madrid to have repaired but requires weight loss previous to surgery. Medication Reconciliation Allergies: Coded Allergies: aspirin (Unverified Allergy, Unknown, ULCER HX, 07/04/25) ibuprofen (Unverified Allergy, Unknown, ULCER HX, 07/04/25) Scheduled Aripiprazole (Aripiprazole), 1 TAB PO DAILY, (Reported) Carbamazepine (Carbamazepine), 1 TAB PO Q12H, (Reported) Cetirizine HCl (Cetirizine HCl), 1 TAB PO HS, (Reported) Cholecalciferol (Vitamin D3) (Vitamin D3), 1 CAP PO DAILY, (Reported) Duloxetine HCl (Duloxetine HCl), 2 CAP PO HS, (Reported) Lactobacillus Rhamnosus (Culturelle), 1 CAP PO DAILY, (Reported) Metoprolol Succinate (Metoprolol Succinate), 1 TAB PO QAM, (Reported) Pantoprazole Sodium (Pantoprazole Sodium), 1 TAB PO BID, (Reported) Prazosin Hcl (Prazosin Hcl), 3 CAP PO HS, (Reported) Pregabalin* (Lyrica*), 2 CAP PO BID, (Reported) Spironolactone (Spironolactone), 25 MG PO DAILY Thiamine Mononitrate (Vitamin B-1), 1 TAB PO DAILY, (Reported) Scheduled PRN albuterol inhaler (Pro-Air Inhaler), 2 PUFFS INH Q4HPRN PRN for wheezing, (Reported) Past Medical History Past Medical History: Chronic Back Pain Past Surgical History: abdominal surgery, orthopedic surgeries Patient History: Blood clots MOTHER, Age: 73 FH: heart attack Sister, FH: lung cancer Maternal grandmother Paternal grandmother FH: skin cancer FATHER, Age: 77 Alcohol Use: None Drug Use: marijuana Lives In: Home Review of Systems ROS All review of systems negative except as per HPI Physical Exam Vital Signs: Temperature: 97.4, Source: Temporal, Heart Rate: 86, Respiratory Rate: 16, BP: 107/80, Pulse Oximetry: 93, Weight: 107.200 Oxygen Flow Rate: 0 Physical Exam General: Patient is awake, alert, oriented x4 in no acute distress Head: Normocephalic and atraumatic. Eyes: Conjunctival normal. EOMI. PERRL. ENT: Mucous membranes moist. Neck: Supple, trachea is midline. Chest: Clear to auscultation bilaterally without rales, rhonchi, or wheezes. There is no accessory muscle use or retractions. Cardiac: RRR without murmurs, gallops, or rubs. Abd: Soft, mildly distended, mild tenderness to palpation to diffuse abdomen without peritonitis. Noted previous surgical scars. Positive bowel sounds Progress Progress Note After discussing the lab results that has well as the risks benefits and alternatives of CT scan and utilizing shared decision-making patient is deferring any CT scan at this time. Results/Orders Results/Orders Vital Signs 07/04/25 14:53 Temp 97.4 Pulse 86 Resp 16 B/P (MAP) 107/80 Pulse Ox 93 O2 Flow Rate 0 Medical Decision Making Findings Upon re-evaluation patient is feeling much better. Patient presented to the emergency room with vomiting abdominal pain. Differentials include but are not limited to gastritis cholecystitis pancreatitis diverticulitis kidney stone therefore emergent labs ordered which were reassuring. Did offer CT scan however patient that has declining after utilizing shared decision-making discussing the risks benefits and alternatives. Patient does endorse drinking too much. This could be contributing to his abdominal pain along with his vomiting. This was discussed with him in the need to cut back. ER precautions discussed. I do not suspect incarcerated hernia. Departure Disposition: HOME / SELF CARE / HOMELESS Impression: Primary Impression: Acute gastritis Condition: Improved Discharge Instructions: Gastritis, Adult Referrals: NO PRIMARY CARE PROVIDER (PCP) Prescriptions Pantoprazole Sodium (PROTONIX tablet) 40 Mg Tablet.dr 1 TAB PO DAILY for 30 Days, #30 TAB 0 Refills Prov: SPENCER RENEE MD 07/04/25 Ondansetron 8mg ODT (Ondansetron Odt) 8 Mg Tab.rapdis 1 TAB PO Q6H for nausea/vomiting for 3 Days, #12 TAB 0 Refills Prov: SPENCER RENEE MD 07/04/25 Hydrocodone Bit/Acetaminophen 5/325 MG (Buckner 5/325 MG) 5 Mg/325 Mg Tablet 1-2 TAB PO Q4-6 hours PRN for pain, #10 TAB Prov: SPENCER RENEE MD 07/04/25 Education Educated: Patient Educated regarding: diagnosis, treatment, need for follow up Signature Scribe Signature: No scribe Attestation: The note accurately reflects work and decisions made by me.Spencer Renee MD 07/04/25 21:32 KIRA JOSE Jul 04, 2025 15:05 SPENCER RENEE MD Jul 04, 2025 20:23
[2025-07-04 16:00] LABS: MEAN PLATELET VOLUME 9.2 FL (7.4-10.4); RED CELL DISTRIBUTION WIDTH 15.2 % (11.5-14.5)
[2025-07-04 16:18] LABS: CREATININE 0.65 MG/DL (0.60-1.10); TOTAL CARBON DIOXIDE 22.1 MMOL/L (24-32); eCRCL 139 ML/MIN; eGFR > 90 ML/MIN
[2025-07-04 20:01] LABS: LEUKOCYTE ESTERASE ,URINE NEGATIVE (Neg); NITRITES, URINE NEGATIVE (Neg); OCCULT BLOOD,URINE NEGATIVE (Neg)
[2025-07-04 20:07] LABS: UA COLLECTION TYPE CLN CATCH MIDSTREAM
[2025-07-04] MEDS: ondansetron/PF 4mg/2ml inj IV ONE (20:27)
[2025-07-04] MEDS: acetaminophen 1,000mg/100ml IV 100 ML IV ONE (20:27)
[2025-07-04] MEDS: morphine 4 MG/ML inj SYRINge IV ONE (20:27)
[2025-07-04 21:08] VITALS: TEMP 97.4
[2025-07-04] MEDS ORDERED: ONDA-245 PO (21:32)
[2025-07-04] MEDS ORDERED: HYDR-3965 PO (21:32)
[2025-07-04] MEDS ORDERED: PANT-47 PO (21:32)
[2025-07-04 22:04] VITALS: BP 139/95; PULSE 82; RESP 16; O2SAT 96
== END 2025-07-04 22:05 | disposition home or self-care (01) ==
LOC: ER 14:35
DX: K29.00 Acute gastritis without bleeding (principal); G89.29 Other chronic pain; F12.90 Cannabis use, unspecified, uncomplicated; Z88.6 Allergy status to analgesic agent; Z79.899 Other long term (current) drug therapy; Z98.890 Other specified postprocedural states
CPT/HCPCS: 36415; 80053; 81003; 83690; 85025; 96365; 96375; 99285; J0131; J2270; J2405

== ENCOUNTER 2025-08-04 15:11 | Inpatient (IN) | payer MEDICAID ==
[~2025-08-04] VITALS: Ht 185.4 cm; Wt 113.6 kg
[~2025-08-04 15:11] MED LIST changes: -CefTRIAXone 2gm/D5W 50ml BAG 50 ML IV SCH; -HYDROcodone/acetaminophen 10/325mg tab PO PRN; -HYDROcodone/acetaminophen 5mg/325mg tablet PO PRN; -HYDROmorphone inj. 0.5 MG/0.5 ML DISP.SYRIN IV PRN; -K and/or MAG REPLACEMENT MC SCH; -METR-159 PO; -PER5325T PO; -docusate sod 100mg capsule PO SCH; -folic acid 1mg/0.2ml inj IV SCH; -heparin, porcine 5000 units/ml vial SQ SCH; -mag hydrox/Alum hydrox/simeth 30ml oral suspension PO PRN; -magnesium Cl slow-release 64mg tablet PO PRN; -magnesium hydroxide 30ml (MOM) UD suspension PO PRN; -magnesium sulf-water 2g/50mL 50 ML IV PRN; -magnesium sulf-water 4G/100mL 100 ML IV PRN; -ondansetron/PF 4mg/2ml inj IV PRN; -potassium Cl 20 mEq SR tablet PO PRN; -potassium Cl 40MEQ/1/2NS 520ml 520 ML IV PRN; -ringers solution, lacted 1,000 ML IV SCH; -thiamine 100mg/ml 2ml inj. IV SCH
[2025-08-04 20:51] VITALS: BP 125/90; PULSE 60; RESP 14; TEMP 97.7; O2SAT 97
[2025-08-04 22:00] VITALS: BP 146/96; PULSE 83; RESP 16; TEMP 97.9; O2SAT 93
[2025-08-04 23:00] VITALS: RESP 14; O2SAT 97
[2025-08-04] MEDS: HYDROmorphone inj. 0.5 MG/0.5 ML DISP.SYRIN IV ONE (23:30)
[2025-08-05] VITALS (7 sets, daily range): BP systolic 116–147; BP diastolic 77–94; PULSE 55–66; RESP 14–19; TEMP 97.4–98.5; O2SAT 93–97
[2025-08-05] MEDS ORDERED: magnesium Cl slow-release 64mg tablet PO PRN (00:35)
[2025-08-05] MEDS ORDERED: magnesium hydroxide 30ml (MOM) UD suspension PO PRN (00:35)
[2025-08-05] MEDS ORDERED: potassium Cl 20 mEq SR tablet PO PRN ×2 (00:35)
[2025-08-05] MEDS ORDERED: ondansetron/PF 4mg/2ml inj IV PRN (00:35)
[2025-08-05] MEDS ORDERED: magnesium sulf-water 2g/50mL 50 ML IV PRN (00:35)
[2025-08-05] MEDS ORDERED: potassium Cl 40MEQ/1/2NS 520ml 520 ML IV PRN (00:35)
[2025-08-05] MEDS ORDERED: mag hydrox/Alum hydrox/simeth 30ml oral suspension PO PRN (00:35)
[2025-08-05] MEDS ORDERED: magnesium sulf-water 4G/100mL 100 ML IV PRN (00:35)
[2025-08-05] MEDS ORDERED: HYDROcodone/acetaminophen 5mg/325mg tablet PO PRN (00:35)
--- NOTE | 2025-08-05 01:05 | HISTORY AND PHYSICAL-Residence ---
History & Physical Providers to CC Resident Creating Document: HUGHBRONWYN GET ~ History of Present Illness Primary Medical Doctor: Lindy Kelly Reason for Admit\Complaint: s/p percutaneous cholecystostomy placement History of Present Illness 49-year-old male is a transfer patient from [facility] s/p percutaneous cholecystostomy tube placement. He was admitted recently on July 22, 2025 for acute cholecystitis and was referred to [facility] on July 31 for IR as he is a poor surgical candidate, where he underwent percutaneous cholecystostomy tube placement on August 02. He has an extensive surgical history of repair of pe rforated gastroduodenal ulcer, pyloromyotomy, closure of duodenal stump, and retrocolic gastrojejunostomy gastric bypass, laparotomy for lysis of adhesions, cholecystitis with history of cholecystostomy tube in December 2024. He states that he has a pain of 8/10 severity on his right side upper and lower abdomen at the moment and was receiving Bayside 10 and Dilaudid at [facility]. He denie s nausea, vomiting, fever, chills, changes in urine output, burning micturition. He states that he has bowel movements and able to eat. He has minimal drainage from the cholecystostomy tube. Hospital course in [facility]: The patient underwent transhepatic cholecystostomy placement with Interventional Radiology on August 02, 2025 during which 25 mL of purulent fluid was removed. On the day of discharge, patient was tolerating a regular diet, ambulating independently and voiding spontaneously. A discharge referral to Interventional Radiology was placed for tube check in 6-8 weeks. WBC was 14.6 on the day of discharge. Patient received IV ceftriaxone 2 g and Flagyl 500 mg p.o. b.i.d. after the drain placement which should end on August 06, 2025. Allergies: Coded Allergies: aspirin (Unverified Allergy, Unknown, ULCER HX, 07/04/25) ibuprofen (Unverified Allergy, Unknown, ULCER HX, 07/04/25) Home Medications Home Medications Active Ondansetron Odt (Ondansetron HCl) 8 Mg Tab.rapdis 1 Tab PO Q6H 3 Days Reported Benadryl (Diphenhydramine Hcl) 25 Mg Capsule 1 Cap PO BID 30 Days Carbamazepine Er (Carbamazepine) 200 Mg Tab.er.12h 1 Tab PO HS 30 Days Carbamazepine Er (Carbamazepine) 400 Mg Tab.er.12h 1 Tab PO DAILY 30 Days Atorvastatin Calcium 20 Mg Tablet 1 Tab PO DAILY Magnesium (Magnesium Oxide) 500 Mg Capsule 1 Cap PO HS 30 Days Prazosin Hcl 2 Mg Capsule 8 Mg PO HS Folic Acid* (Folic Acid) Y Tab 1 Tab PO DAILY Potassium Chloride 20 Meq Tablet.er 1 Tab PO DAILY Docusate Sodium 100 Mg Capsule 1 Cap PO BID Pantoprazole Sodium 40 Mg Tablet.dr 1 Tab PO BID Vitamin D3 (Cholecalciferol (Vitamin D3)) 50 Mcg (2000 Unit) Capsule 1 Cap PO DAILY 30 Days Pro-Air Inhaler (Albuterol) 8.5 Gm Inhaler 2 Puffs INH Q4HPRN PRN 30 Days Duloxetine HCl 60 Mg Capsule.dr 2 Cap PO HS 30 Days Aripiprazole 5 Mg Tablet 1 Tab PO DAILY 30 Days Lyrica* (Pregabalin) 25 Mg Capsule 2 Cap PO BID Metoprolol Succinate 50 Mg Tab.sr.24h 1 Tab PO QAM Cetirizine HCl 10 Mg Tablet 1 Tab PO HS Past Medical History Past Medical History Calculous cholecystitis s/p cholecystostomy tube placed and removed (December,) Hypertension Alcohol use disorder Tobacco abuse Anxiety and depression PTSD Neuropathic pain Asthma History of multiple lung nodules Macrocytic anemia Lumbar herniated disc-chronic back pain Past Surgical History Surgical History Comment Repair of perforated gastroduodenal ulcer, pyloromyotomy, closure of duodenal stump and retrocolic gastrojejunostomy (07/30/24) 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) Exploratory laparotomy for severe lysis of adhesion (09/2024) Wedge resection of right lower lobe lung nodule Vasectomy Percutaneous cholecystostomy on 01/04/25 Repair of perforated gastroduodenal ulcer, pyloromyotomy, closure of duodenal stump and retrocolic gastrojejunostomy Jazzmine-en-Y gastric bypass surgery-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 Exploratory laparotomy with severe lysis of adhesions c/b postop incisional abdominal wound cellulitis Family History Family History: Blood clots MOTHER, Age: 73 FH: heart attack Sister, FH: lung cancer Maternal grandmother Paternal grandmother FH: skin cancer FATHER, Age: 77 Past Social History Social History Comment Alcohol: Occasionally, hx of chronic alcoholism Tobacco: 30+ pack year history, current smoker Illicit drug use: Marijuana He lives at home with his spouse Smoking: Cigarettes Alcohol Use: None Drug Use: Marijuana Lives In: Home ROS ROS Constitutional: No fever, chills, dizziness, weight gain or loss Eyes: No pain, erythema, discharge, blurring of vision ENT: No sore throat, epistaxis, tinnitus Cardiovascular:No chest pain, palpitations, syncope, lower extremity edema, paroxysmal nocturnal dyspnea Respiratory: No Shortness of breath and cough, No hemoptysis. Gastrointestinal: Reports Abdominal pain, No vom iting,nausea,constipation,diarrhea. Normal appetite. No hematemesis or melena. Musculoskeletal: No Swelling, pain in bilateral lower legs. Integumentary: No change in skin, hair, nails. No swelling, bruising, abrasions Neurologic: No weakness,No headache, neck pain, numbness or tingling of the extremities, Psychiatric: No delusions, depression, loss of interest in normal activity or change in sleep pattern, hallucinations, suicidal ideations Endocrine: No fatigue, no weakness. polydipsia, polyuria, change in appetite, heat or cold intolerance, sweating, dry skin Hematological: No bleeding, petechiae, bruising Allergies: No asthma or urticaria Exam Vitals: Vital Signs Date Time Temp Pulse Resp B/P (MAP) Pulse Ox O2 Delivery O2 Flow Rate FiO2 08/04/25 23:30 16 General: Awake , alert, and oriented x4, resting comfortably in the bed, in no acute distress HEENT: Atraumatic, normocephalic, EOMI, anicteric sclera ; pink conjunctiva Neck: Trachea midline. Supple, full range of motion, no JVD Cardiac: Regular rhythm, regular rate with no murmurs all over the precordium. Respiratory: Equal breath sounds bilaterally, no tachypnea, no wheezing ,rub or rales, Chest wall is symmetric and without deformity. Gastrointestinal: Percutaneous cholecystostomy drain with minimal bilious output, abdominal tenderness present, Abdomen non-distended, soft, normal bowel sounds, no guarding, prior surgical incisions present, no erythema, warmth, discharge around the drain Musculoskeletal: No pedal edema, no cyanosis Neurological: Speech is clear, alert, and oriented x 4. No motor or sensory deficit, deep tendon reflexes normal, cerebellar intact. Cranial nerves II-XII intact. Skin: Warm and dry Advance Care Planning Advanced Care plannin - 30 Minutes (Full code) Additional Plan Acute cholecystitis s/p percutaneous cholecystostomy tube placement with drainage of 25 mL purulent fluid on 08/02/25 08/04/25 - post op day 2 Vitals are normal WBC was 14.6, at [facility] on 08/04/25 and 10.2 on 08/02/25 Alkaline phosphatase was 140 and total bilirubin was 0.2 on 08/02/25 Fluid culture from gallbladder grew moderate Klebsiella pneumoniae Blood cultures showed no growth He was started on IV Rocephin 2 g and Flagyl 500 mg b.i.d. p.o., to be continued for 4 days postop Abdomen/pelvis CT on 07/22/25 showed cholelithiasis with gallbladder wall thickening, right lower quadrant ventral abdominal wall hernia to the right of midline containing bowel loops without obstruction, small-bowel intussusception in the left upper quadrant and jejunal bowel loops at the site of jejunal anastomosis, and colonic diverticulosis without acute diverticulitis Plan: Minimal bilious fluid in drain, No erythema, warmth surrounding the tube Patient is on IV Rocephin 2 g- day 2 Flagyl 500 mg b.i.d. p.o.- day 2 Started IV LR at 75 mL/hour Pain controlled by Bayside 5 mg/10 mg, Dilaudid p.r.n. Follow up WBC Monitor CMP Monitor drain output Discharge referral to IR for outpatient tube change in 6-8 weeks placed at [facility] History of Hypertension He uses metoprolol succinate 50 mg at home, we will continue after med reconciliation Anxiety/depression PTSD Chronic pain We will continue his home medications carbamazepine, duloxetine, pregabalin after med reconciliation History of alcohol use disorder Alcohol withdrawal protocol in place Consulted manager social responsibility and substance use navigator #Pending med reconciliation I spent a total of 18 minutes reviewing various resuscitative measures/ACP with the patient. The patient decided to be full code. Code status: Full code DVT prophylaxis: Heparin subQ Pain management: Bayside 1 mg/2 mg, Dilaudid Diet/nutrition: Low-fat diet Prognosis: Guarded Disposition: Continue medical management, Monitor drain output and WBC, PT eval and DC plan Resident attestation: The patient note has been reviewed and supervised by senior residents PGY-2/ PGY-3. Patient was seen, examined and discussed with attending physician. Bronwyn Zaragoza MD Internal Medicine resident, PGY-1 Patient was evaluated using HIPPA compliant AV device Agree with plan as discussed with the resident Sachin Bravo MD Date of Service: Aug 05, 2025 Billing Provider: SACHIN BRAVO MD, PREETHI, RES Aug 05, 2025 01:05 SACHIN BRAVO MD Aug 05, 2025 02:32
[2025-08-05] MEDS: HYDROcodone/acetaminophen 10/325mg tab PO PRN (01:08)
[2025-08-05] MEDS: ringers solution, lacted 1,000 ML IV SCH (01:09)
[2025-08-05] MEDS: HYDROmorphone inj. 0.5 MG/0.5 ML DISP.SYRIN IV PRN (03:37)
[2025-08-05 06:33] LABS: MEAN PLATELET VOLUME 9.5 FL (7.4-10.4); RED CELL DISTRIBUTION WIDTH 14.7 % (11.5-14.5)
[2025-08-05 06:36] LABS: APTT 26 SECONDS (22-32); INR 1.0 INR
[2025-08-05 06:47] LABS: CREATININE 0.59 MG/DL (0.60-1.10); PHOSPHORUS 5.2 MG/DL (2.3-4.5); TOTAL CARBON DIOXIDE 28.7 MMOL/L (24-32); eGFR > 90 ML/MIN
[2025-08-05] MEDS ORDERED: albuterol 2.5 MG/3 ML nebule NEB PRN (07:30)
[2025-08-05] MEDS: K and/or MAG REPLACEMENT MC SCH (08:00)
[2025-08-05] MEDS: metoprolol succinate 25mg (24-HOUR) SR. Tablet PO SCH (08:06)
[2025-08-05] MEDS: lactobacillus rhamnosus 10,000 MMU CELLS/CAPSULE PO SCH (08:07)
[2025-08-05] MEDS: thiamine 100mg/ml 2ml inj. IV SCH (08:08)
[2025-08-05] MEDS: docusate sod 100mg capsule PO SCH (08:08)
[2025-08-05] MEDS: heparin, porcine 5000 units/ml vial SQ SCH (08:09)
[2025-08-05] MEDS: CefTRIAXone 2gm/D5W 50ml BAG 50 ML IV SCH (08:11)
[2025-08-05] MEDS: folic acid 1mg/0.2ml inj IV SCH (08:29)
[2025-08-06 04:25] LABS: CHOL/HDL RATIO 3.0 (0.00-4.99); LDL CHOLESTEROL 62 MG/DL (50-100)
[2025-08-06 06:41] VITALS: BP 140/78; PULSE 58; RESP 16; TEMP 97.8; O2SAT 97
[2025-08-06 08:00] VITALS: RESP 18
[2025-08-06 08:20] VITALS: BP 134/90; PULSE 66
[2025-08-06 10:15] VITALS: RESP 16; O2SAT 96
[2025-08-06] MEDS ORDERED: METR-159 PO (10:40)
[2025-08-06 11:00] VITALS: BP 124/85; PULSE 59; RESP 18; TEMP 97.4; O2SAT 96
[2025-08-06 11:34] VITALS: PULSE 58; RESP 18; O2SAT 96
--- NOTE | 2025-08-06 11:53 | DISCHARGE SUMMARY ---
Discharge Summary Providers to ~ Discharge Summary Admission Diagnosis: acute cholecystitis s/p cholecystostomy placement Hospital Course DATE OF ADMISSION: 08/05/25 DATE OF DISCHARGE: 08/06/25 Discharge Diagnosis\\Comment: Acute cholecystitis s/p percutaneous cholecystostomy tube placement ([facility], 08/02) Hypertension Anxiety/depression PTSD Chronic pain History of alcohol use disorder Operations\\Procedures: None Consultants: None Complications: None Condition on DC: Stable New Medications: Metronidazole* (Flagyl*) 500 Mg Tablet 1 TAB PO Q12H for 1 Day, #2 TAB Continued Medications: albuterol inhaler (Pro-Air Inhaler) 8.5 Gm Inhaler 2 PUFFS INH Q4HPRN PRN for wheezing for 30 Days, #18 GM Aripiprazole (Aripiprazole) 5 Mg Tablet 1 TAB PO DAILY for 30 Days, #30 TAB 0 Refills Atorvastatin Calcium (Atorvastatin Calcium) 20 Mg Tablet 1 TAB PO DAILY Carbamazepine (Carbamazepine Er) 400 Mg Tab.er.12h 1 TAB PO DAILY for 30 Days, #60 TAB 0 Refills Carbamazepine (Carbamazepine Er) 200 Mg Tab.er.12h 1 TAB PO HS for 30 Days, #60 TAB 0 Refills Cetirizine HCl (Cetirizine HCl) 10 Mg Tablet 1 TAB PO HS Cholecalciferol (Vitamin D3) (Vitamin D3) 50 Mcg (2000 Unit) Capsule 1 CAP PO DAILY for 30 Days, #30 CAP 0 Refills Diphenhydramine Hcl (Benadryl) 25 Mg Capsule 1 CAP PO BID for 30 Days, #30 CAP 0 Refills Docusate Sodium (Docusate Sodium) 100 Mg Capsule 1 CAP PO BID Duloxetine HCl (Duloxetine HCl) 60 Mg Capsule.dr 2 CAP PO HS for 30 Days, #30 CAP 0 Refills Folic Acid* (Folic Acid*) Y Tab 1 TAB PO DAILY Magnesium Oxide (Magnesium) 500 Mg Capsule 1 CAP PO HS for 30 Days, #60 CAP 0 Refills Metoprolol Succinate (Metoprolol Succinate) 50 Mg Tab.sr.24h 1 TAB PO QAM Ondansetron 8mg ODT (Ondansetron Odt) 8 Mg Tab.rapdis 1 TAB PO Q6H for nausea/vomiting for 3 Days, #12 TAB 0 Refills Pantoprazole Sodium (Pantoprazole Sodium) 40 Mg Tablet.dr 1 TAB PO BID Potassium Chloride (Potassium Chloride) 20 Meq Tablet.er 1 TAB PO DAILY Prazosin Hcl (Prazosin Hcl) 2 Mg Capsule 8 MG PO HS, CAP Pregabalin* (Lyrica*) 25 Mg Capsule 2 CAP PO BID, CAP Discharge Summary: History of Present Illness From H&P: "49-year-old male is a transfer patient from [facility] s/p percutaneous cholecystostomy tube placement. He was admitted recently on July 22, 2025 for acute cholecystitis and was referred to [facility] on July 31 for IR as he is a poor surgical candidate, where he underwent percutaneous cholecystostomy tube placement on August 02. He has an extensive surgical history of repair of perforated gastroduodenal ulcer, pyloromyotomy, closure of duodenal stump, and retrocolic gastrojejunostomy gastric bypass, laparotomy for lysis of adhesions, cholecystitis with history of cholecystostomy tube in December 2024. He states that he has a pain of 8/10 severity on his right side upper and lower abdomen at the moment and was receiving [place]ier 10 and Dilaudid at [facility]. He denies nausea, vomiting, fever, chills, changes in urine output, burning micturition. He states that he has bowel movements and able to eat. He has minimal drainage from the cholecystostomy tube. Hospital course in [facility]: The patient underwent transhepatic cholecystostomy placement with Interventional Radiology on August 02, 2025 during which 25 mL of purulent fluid was removed. On the day of discharge, patient was tolerating a regular diet, ambulating independently and voiding spontaneously. A discharge referral to Interventional Radiology was placed for tube check in 6-8 weeks. WBC was 14.6 on the day of discharge. Patient received IV ceftriaxone 2 g and Flagyl 500 mg p.o. b.i.d. after the drain placement which should end on August 06, 2025." Hospital Course Patient was treated with empirical antibiotics and supportive care and physical therapy. Patient did not experience further complications throughout the entire hospital stay and remained clinically and hemodynamically stable. Patient was seen and examined on the day of discharge. On day of discharge, vss, patient refused morning labs. All labs, diagnostic workups, discharge plan discussed with patient in details during visit before discharge. All questions and concerns answered to the best of my professional knowledge. Patient is to be discharged to home to self and to follow-up with PCP and his surgeon Dr. Madrid within 2 weeks. Patient is referred to IR for management of cholecystostomy tube which is expected to be taken out in 6-8 weeks. Physical Exam General: Generalized weakness, A&Ox 3, NAD HEENT: Normocephalic, PERRLA Neck: Supple, trachea midline, no JVD Chest: Clear to auscultation bilaterally Cardiovascular: RRR, S1&S2 GI: Soft and nontender Extremities: No cyanosis/clubbing/or edema PROJECT MANAGEMENT DIRECTOR: CN II-XII intact, no focal deficits Musculoskeletal: No paraspinal muscle tenderness, no muscle spasm Skin: Warm and intact *Problems/Diagnosis: (1) Acute cholecystitis Status: Acute Total Time Spent on D/C: > 30 Minutes Date of Service: Aug 06, 2025 Billing Provider: HARRY CORTES Common Visit Codes: 33423-ASW/OBS DISCH DAY >30min HARRY OCRTES Aug 06, 2025 11:53
[2025-08-06] MEDS ORDERED: PER5325T PO (13:03)
== END 2025-08-06 13:56 | disposition home or self-care (01) ==
LOC: UNDOADMIN 20:48 → SUR 3N 20:48 → UNDOADMIN 20:58 → SUR 3N 08-05 00:39
PROVIDERS: ADMIT Internal Medicine; ATTEND Nurse Practitioner Family
DX: K81.0 Acute cholecystitis (principal); F32.A Depression, unspecified; I10 Essential (primary) hypertension; F41.9 Anxiety disorder, unspecified; G62.9 Polyneuropathy, unspecified; F43.10 Post-traumatic stress disorder, unspecified; G89.29 Other chronic pain; Z87.11 Personal history of peptic ulcer disease; Z98.84 Bariatric surgery status
CPT/HCPCS: 36415; 80053; 80061; 83605; 83735; 84100; 84145; 85025; 85610; 85730; 87081; 94760; 97116; 97161; 97530; A6449; G0378; J0696; J1171; J1644; J3411; J3490; J7120

== ENCOUNTER → 2025-08-04 | Emergency (ER) | payer MEDICAID ==
[~2025-08-04] MED LIST changes: +ATOR20TA66 PO; +CARB-322 PO; -CARB200T8 PO; +CefTRIAXone 2gm/D5W 50ml BAG 50 ML IV SCH; +DIPH25CA83 PO; +DOCU-391 PO; +FOLI1TAB27 PO; +HYDROcodone/acetaminophen 10/325mg tab PO PRN; +HYDROcodone/acetaminophen 5mg/325mg tablet PO PRN; +HYDROmorphone inj. 0.5 MG/0.5 ML DISP.SYRIN IV PRN; +K and/or MAG REPLACEMENT MC SCH; -LACT1CAP26 PO; +MAGN500C4 PO; +METR-159 PO; +ONDA-245 PO; +PER5325T PO; +POTA-366 PO; -SPIR25TA5 PO; -THIA100T70 PO; +[UNRECOGNIZED DRUG - CODE] PO; +docusate sod 100mg capsule PO SCH; +folic acid 1mg/0.2ml inj IV SCH; +heparin, porcine 5000 units/ml vial SQ SCH; +mag hydrox/Alum hydrox/simeth 30ml oral suspension PO PRN; +magnesium Cl slow-release 64mg tablet PO PRN; +magnesium hydroxide 30ml (MOM) UD suspension PO PRN; +magnesium sulf-water 2g/50mL 50 ML IV PRN; +magnesium sulf-water 4G/100mL 100 ML IV PRN; +ondansetron/PF 4mg/2ml inj IV PRN; +potassium Cl 20 mEq SR tablet PO PRN; +potassium Cl 40MEQ/1/2NS 520ml 520 ML IV PRN; +ringers solution, lacted 1,000 ML IV SCH; +thiamine 100mg/ml 2ml inj. IV SCH
[2025-08-06 08:23] LABS: MEAN PLATELET VOLUME 9.4 FL (7.4-10.4); RED CELL DISTRIBUTION WIDTH 14.8 % (11.5-14.5)
[2025-08-06 08:29] LABS: CREATININE 0.76 MG/DL (0.60-1.10); TOTAL CARBON DIOXIDE 26.1 MMOL/L (24-32); eGFR > 90 ML/MIN
== END | disposition left against medical advice (07) ==
LOC: ER 20:31
DX: Z00.00 Encounter for general adult medical examination without abnormal findings (principal); Z88.6 Allergy status to analgesic agent; Z53.21 Procedure and treatment not carried out due to patient leaving prior to being seen by health care provider
CPT/HCPCS: 80048; 83735; 85025; 99281

== ENCOUNTER 2025-09-17 12:37 | Emergency (ER) | payer MEDICAID ==
[~2025-09-17] VITALS: Ht 185.4 cm; Wt 112.5 kg
[2025-09-17 13:20] LABS: MEAN PLATELET VOLUME 8.8 FL (7.4-10.4); RED CELL DISTRIBUTION WIDTH 13.7 % (11.5-14.5)
[2025-09-17 13:34] LABS: CREATININE 0.66 MG/DL (0.60-1.10); TOTAL CARBON DIOXIDE 23.7 MMOL/L (24-32); eCRCL 155 ML/MIN; eGFR > 90 ML/MIN
--- NOTE | 2025-09-17 14:40 | Physician Documentation ---
History of Present Illness Chief Complaint: Post-operative complication Stated Complaint: SEE CHEIF COMPLAINT Primary Medical Doctor: Lindy Kelly HPI 49-year-old male presents to the ED for concerns over his BRANDON drain incidentally falling out this morning. States that that has placed after having a cholecystectomy. This was reportedly done at [facility] with an IR doc named Dr. Alas. RONA is hemodynamically stable in his wondering if he can just follow up with the [facility] on the . The drain was placed on a proximally August 06. States that once the BRANDON drain fell out he began having increased right lower quadrant abdominal pain. This patient has a long history with complex abdominal surgeries Day of Onset: Sep 17, 2025 Medication Reconciliation Allergies: Coded Allergies: aspirin (Unverified Allergy, Unknown, ULCER HX, 09/17/25) ibuprofen (Unverified Allergy, Unknown, ULCER HX, 09/17/25) Scheduled Aripiprazole (Aripiprazole), 1 TAB PO DAILY, (Reported) Atorvastatin Calcium (Atorvastatin Calcium), 1 TAB PO DAILY, (Reported) Carbamazepine (Carbamazepine Er), 1 TAB PO DAILY, (Reported) Carbamazepine (Carbamazepine Er), 1 TAB PO HS, (Reported) Cetirizine HCl (Cetirizine HCl), 1 TAB PO HS, (Reported) Cholecalciferol (Vitamin D3) (Vitamin D3), 1 CAP PO DAILY, (Reported) Diphenhydramine Hcl (Benadryl), 1 CAP PO BID, (Reported) Docusate Sodium (Docusate Sodium), 1 CAP PO BID, (Reported) Duloxetine HCl (Duloxetine HCl), 2 CAP PO HS, (Reported) Folic Acid* (Folic Acid*), 1 TAB PO DAILY, (Reported) Magnesium Oxide (Magnesium), 1 CAP PO HS, (Reported) Metoprolol Succinate (Metoprolol Succinate), 1 TAB PO QAM, (Reported) Ondansetron 8mg ODT (Ondansetron Odt), 1 TAB PO Q6H Pantoprazole Sodium (Pantoprazole Sodium), 1 TAB PO BID, (Reported) Potassium Chloride (Potassium Chloride), 1 TAB PO DAILY, (Reported) Prazosin Hcl (Prazosin Hcl), 8 MG PO HS, (Reported) Pregabalin* (Lyrica*), 2 CAP PO BID, (Reported) Scheduled PRN albuterol inhaler (Pro-Air Inhaler), 2 PUFFS INH Q4HPRN PRN for wheezing, (Reported) Past Medical History Past Medical History: Chronic Back Pain Past Surgical History: abdominal surgery, orthopedic surgeries Patient History: Blood clots MOTHER, Age: 73 FH: heart attack Sister, FH: lung cancer Maternal grandmother Paternal grandmother FH: skin cancer FATHER, Age: 77 Alcohol Use: None Drug Use: marijuana Lives In: Home Review of Systems All Other Systems at this time: Reviewed and Negative ROS As stated above in the HPI, otherwise all systems are reviewed and negative. Physical Exam Vital Signs: Temperature: 97.7, Source: Temporal, Heart Rate: 66, Respiratory Rate: 14, BP: 126/84, Pulse Oximetry: 96, Weight: 112.500 Oxygen Flow Rate: 0 Physical Exam General: Alert, no apparent distress. Respiratory: Lungs clear, no respiratory distress. Cardiovascular: Regular rate and rhythm, no murmurs. Gastrointestinal: Soft, nontender, nondistended. Bowels sounds present. Right lower quadrant tenderness Neurologic: Oriented x4. Psychiatric: Normal mood and affect. Skin: Normal color, warm and dry. No edema, no ecchymosis. Progress Results/Orders Results/Orders Vital Signs 09/17/25 09/17/25 12:42 14:23 Temp 97.7 97.7 Pulse 64 66 Resp 16 14 B/P (MAP) 115/68 126/84 (98) Pulse Ox 98 96 O2 Flow Rate 0 0 Laboratory Tests Test 09/17/25 13:11 White Blood Count 10.9 Red Blood Count 4.19 L Hemoglobin 14.4 Hematocrit 42.1 Mean Corpuscular Volume 100.4 H Mean Corpuscular Hemoglobin 34.3 H Mean Corpuscular Hemoglobin Concent 34.2 Red Cell Distribution Width 13.7 Platelet Count 215 Mean Platelet Volume 8.8 Neutrophils (%) (Auto) 68.8 Lymphocytes (%) (Auto) 22.3 Monocytes (%) (Auto) 6.1 Eosinophils (%) (Auto) 1.8 Basophils (%) (Auto) 1.0 Neutrophils # (Auto) 7.5 Lymphocytes # (Auto) 2.4 Monocytes # (Auto) 0.7 Eosinophils # (Auto) 0.2 Basophils # (Auto) 0.1 CBC Comment Sodium Level 138 Potassium Level 4.2 Chloride Level 104 Carbon Dioxide Level 23.7 L Anion Gap 10 Blood Urea Nitrogen 9 Creatinine 0.66 Estimated GFR/1.73 m2 > 90 BUN/Creatinine Ratio 13.6 Glucose Level 107 H Calcium Level 8.5 Total Bilirubin 0.2 Aspartate Amino Transf (AST/SGOT) 23 Alanine Aminotransferase (ALT/SGPT) 34 Alkaline Phosphatase 137 H Total Protein 7.4 Albumin 3.5 Globulin 3.9 Albumin/Globulin Ratio 0.9 L Lipase 25 Chemistry Comments Medical Decision Making Additional information obtaine: old records Findings After speaking with the doctor who was involved in interventional radiology he advised to get a CT and further evaluate the patient. This time the CT did not show any signs of fluid buildup or infectious processes which correlates with the patient's laboratory values. Patient does present in abdominal pain which I can treat however he needs to follow up with the [facility] for further evaluation of his BRANDON drain as there is nothing emergently occurring at this time Differential Dx:Considerations: Constipation, Esophagitis, Urinary obstruction, Urinary tract infection Departure Disposition: HOME / SELF CARE / HOMELESS Impression: Primary Impression: Perforated stomach Additional Impressions: Right sided abdominal pain Postoperative external wound disruption Condition: Stable Additional Instructions: Follow up with the [facility] for further evaluation of your BRANDON drain. If you experience worsening symptoms please feel free to return to the ED Referrals: NO PRIMARY CARE PROVIDER (PCP) Prescriptions Hydrocodone Bit/Acetaminophen 5/325 MG ([place] 5/325 MG) 5 Mg/325 Mg Tablet 1 TAB PO Q6H PRN for pain, #14 TAB Prov: CARY CUTLER NP 09/17/25 Education Educated: Patient Educated regarding: diagnosis Signature Scribe Signature: j Attestation: Scribed for Cary Cutler Dependency Case Manager by Cary Marinelli NP . 09/17/25 17:54 TONY HU Sep 17, 2025 14:40 CARY CUTLER NP Sep 17, 2025 15:32
[2025-09-17] MEDS ORDERED: levetiracetam inj 750 MG in normal saline 100ml IV soln 100 ML IV STA ×2 (15:46→15:47)
[2025-09-17] MEDS ORDERED: iohexol 300mg/ml 100ml inj. ONE (16:22)
[2025-09-17 17:25] LABS: LEUKOCYTE ESTERASE ,URINE NEGATIVE (Neg); NITRITES, URINE NEGATIVE (Neg); OCCULT BLOOD,URINE NEGATIVE (Neg)
[2025-09-17 17:29] LABS: UA COLLECTION TYPE CLN CATCH MIDSTREAM
--- NOTE | 2025-09-17 17:34 | RADIOLOGY REPORT ---
Exam: CT CT ABDOMEN PELVIS W/ IV CONTRAST History: prashanth drain fell out acute abdominal COMPARISON: CT CT ABDOMEN PELVIS W/ IV CONTRAST on DOS: 07/22/25, CT CT ABDOMEN PELVIS W/ IV CONTRAST on DOS: 01/05/25, CT CT ABDOMEN PELVIS on DOS: 01/03/25, CT CT ABDOMEN PELVIS on DOS: 10/15/24, CT CT ABDOMEN PELVIS on DOS: 10/04/24 Technique: Multidetector spiral CT of the abdomen and pelvis was performed from lung bases to pubic symphysis. Intravenous contrast was administered during this examination. Portal venous imaging was obtained. Axial, coronal and sagittal multiplanar reformats were performed by the technologist on a separate workstation. Radiation Dose : 1. Abdomen/Pelvis: CTDIvol 34.7mGy, DLP 1932.57 mGy*cm. Findings: The lower chest is unremarkable. Abdomen/pelvis: The liver is unremarkable. There is a tract from a prior transhepatic percutaneous cholecystostomy tube along the the right inferior hepatic lobe. Cholelithiasis. There is mild gallbladder wall thickening. No biliary ductal dilatation. 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 There is a right lower quadrant ventral abdominal wall hernia just right of midline containing segment of small bowel without obstruction or inflammatory change. There is a large umbilical hernia containing segment of small bowel and colon without obstruction or inflammatory change. Remainder of the bowel is unremarkable. Normal appendix. No pneumoperitoneum, ascites, or abscess The urinary bladder and prostate are unremarkable. Tiny fat containing right inguinal hernia. No acute or suspicious osseous lesions IMPRESSION: Cholelithiasis with mild gallbladder wall thickening. A previous percutaneous transhepatic cholecystostomy tube has been dislodged. No fluid collections. Right lower quadrant and umbilical ventral abdominal wall hernias containing small bowel and colon without obstruction or inflammatory change. Radiation optimization: All CT scans at this facility use at least one of these dose optimization techniques: automated exposure control mA and/or kV adjustment per patient size (includes targeted exams where dose is matched to clinical indication) or iterative reconstruction.
[2025-09-17] MEDS ORDERED: HYDR-3965 PO (17:57)
[2025-09-17] MEDS: HYDROcodone/acetaminophen 10/325mg tab PO ONE (18:10)
[2025-09-17 18:11] VITALS: BP 125/79; PULSE 70; RESP 16; TEMP 97.5; O2SAT 98
== END 2025-09-17 18:14 | disposition home or self-care (01) ==
LOC: ER 12:37
DX: T81.30XA Disruption of wound, unspecified, initial encounter (principal); R10.31 Right lower quadrant pain; G89.29 Other chronic pain; F12.90 Cannabis use, unspecified, uncomplicated; Z88.6 Allergy status to analgesic agent; Z79.899 Other long term (current) drug therapy; Z98.890 Other specified postprocedural states
CPT/HCPCS: 36415; 74177; 80053; 81003; 83690; 85025; 99285; Q9967